=== PATIENT | female | born 1935 | race Caucasian/White ===

== ENCOUNTER 2017-06-09 10:33 | Inpatient (IN) | payer MEDICARE ==
[~2017-06-09] VITALS: Ht 152.4 cm; Wt 45.4 kg
[2017-06-09 11:17] LABS: BASOPHILS 0.1 % (0-2); EOSINOPHILS 0 % (0-7); HEMATOCRIT 44.7 % (36.0-48.0); HEMOGLOBIN 14.6 g/dL (12-16); IMMATURE GRANULOCYTES 0.2 % (0-5); LYMPHOCYTES 8.6 % (15-50); MCH 29.9 pg (26.0-34.0); MCHC 32.7 g/dL (31.0-37.0); MCV 91.4 fL (80.0-100.0); MEAN PLATELET VOLUME 11.5 fL (7.4-10.4); MONOCYTES 6.2 % (2-11); NEUTROPHILS 84.9 % (40-80); PLATELET COUNT 217 10x3/uL (130-400); RBC 4.89 10x6/uL (4.00-5.40); RDW 14.2 % (11.5-14.5); WBC 12.3 10x3/uL (4.8-10.8)
[2017-06-09 11:24] LABS: APTT 24.5 SECONDS (22.8-39.4); INR 1.05 (0.85-1.17); PROTIME 13.6 SECONDS (11.6-15.0)
[2017-06-09 11:30] LABS: ALBUMIN 3.4 g/dL (3.4-5.0); ANION GAP 15.7 mmol/L (8-16); BILIRUBIN - TOTAL 0.4 mg/dL (0.2-1.3); CARBON DIOXIDE 25.8 mmol/L (21.0-32.0); CREATININE - SERUM 1.1 mg/dL (0.6-1.3); POTASSIUM - SERUM 3.5 mmol/L (3.5-5.1); PROTEIN - SERUM 7.7 g/dL (6.4-8.2)
[2017-06-09 11:56] LABS: MAGNESIUM - SERUM 2.5 mg/dL (1.8-2.4); THYROID STIMULATING HORMONE 1.53 uIU/mL (0.36-3.74)
--- NOTE | 2017-06-09 13:05 | NUR ---
RECEIVED FROM ER VIA STRETCHER. IV TO L AC PATENT. COMPLAINING OF PAIN TO R HIP WITH MOVEMENT. COPPOLA PATENT DRAINING YELLOW URINE. SLIGHT REDNESS NOTED TO BUTTOCKS.
[2017-06-09] MEDS ORDERED: APRISO0.375 GM (13:19)
[2017-06-09] MEDS ORDERED: NORVASC5 MG PO (13:20)
[2017-06-09] MEDS ORDERED: LEVO-T88 MCG PO (13:20)
[2017-06-09] MEDS ORDERED: ALEVE220 MG PO (13:20)
[2017-06-09] MEDS ORDERED: IBUPROFEN600 MG PO (13:21)
[2017-06-09 13:27] VITALS: BP 147/78; BMI 19.5
[2017-06-09 14:10] LABS: APPEARANCE HAZY (CLEAR); BACTERIA MANY /hpf (NONE SEEN); BILIRUBIN NEGATIVE (NEGATIVE); COLOR YELLOW (YELLOW); EPITHELIAL CELLS 0-5 /hpf (0-5); GLUCOSE NEGATIVE (NEGATIVE); KETONE MODERATE mg/dL (NEGATIVE); LEUKOCYTE ESTERASE 2+ (NEGATIVE); NITRITE NEGATIVE (NEGATIVE); PROTEIN TRACE mg/dL (NEGATIVE); RED CELLS - URINE 0-5 /hpf (0-5); SPECIFIC GRAVITY 1.015 (1.005-1.020); UROBILINOGEN NORMAL (NORMAL); WHITE CELLS - URINE >50 /hpf (0-5)
--- NOTE | 2017-06-09 15:24 | NUR ---
RESTING QUIETLY IN BED. DENIES ANY NEEDS AT THIS TIME.
--- NOTE | 2017-06-09 16:13 | NUR ---
CONTINUES RESTING QUIETLY IN BED. DENIES ANY NEEDS AT THIS TIME. STATES SHE WANTS TO TAKE A NAP.
[2017-06-09 16:20] VITALS: BP 120/71
--- NOTE | 2017-06-09 19:00 | NUR ---
REPORT RECEIVED AND CARE OF PT ASSUMED. PT LYING IN SUPINE POSITION WITH EYES CLOSED. IV IN LEFT AC PATENT WITH LR INFUSING AT 100 ML / HR. COPPOLA CATHETER DRAINING TO GRAVITY WITH YELLOW URINE IN COLLECTION BAG. WILL MONITOR CLOSELY FOR NEEDS.
--- NOTE | 2017-06-09 19:40 | NUR ---
MORPHINE 2 MG IVP GIVEN PER PT REQUEST FOR PAIN. WILL CONTINUE TO MONITOR FOR NEEDS. CALL LIGHT WITHIN REACH.
[2017-06-09 20:00] VITALS: BP 110/63
--- NOTE | 2017-06-09 21:10 | NUR ---
HS MEDICATIONS GIVEN. WILL CONTINUE TO MONITOR FOR NEEDS.
--- NOTE | 2017-06-09 22:00 | NUR ---
PLACED SCD'S ON BILATERAL LOWER LEGS AND DID PT TEACHING ON USE AND PURPOSE.
[2017-06-10] VITALS: BP 122/67
--- NOTE | 2017-06-10 00:14 | NUR ---
GAVE MORPHINE 2 MG IVP PER PT REQUEST FOR PAIN AT LEVEL 5/10. PT ALSO REQUESTED TO HAVE SCD'S REMOVED. DAUGHTER IS AT BEDSIDE.
[2017-06-10 04:00] VITALS: BP 102/52
[2017-06-10 05:20] LABS: BASOPHILS 0.3 % (0-2); EOSINOPHILS 3.1 % (0-7); HEMATOCRIT 37.9 % (36.0-48.0); HEMOGLOBIN 12.1 g/dL (12-16); IMMATURE GRANULOCYTES 0.1 % (0-5); LYMPHOCYTES 23.2 % (15-50); MCH 29.4 pg (26.0-34.0); MCHC 31.9 g/dL (31.0-37.0); MEAN PLATELET VOLUME 11.6 fL (7.4-10.4); MONOCYTES 6.1 % (2-11); NEUTROPHILS 67.2 % (40-80); PLATELET COUNT 193 10x3/uL (130-400); RBC 4.12 10x6/uL (4.00-5.40); RDW 14.2 % (11.5-14.5)
[2017-06-10 05:47] LABS: ANION GAP 11.2 mmol/L (8-16); CALCIUM 8.2 mg/dL (8.5-10.1); CARBON DIOXIDE 27.2 mmol/L (21.0-32.0); CREATININE - SERUM 0.8 mg/dL (0.6-1.3); POTASSIUM - SERUM 3.4 mmol/L (3.5-5.1)
--- NOTE | 2017-06-10 07:35 | NUR ---
RESTING, DENIES NEEDS, BED LOWEST POSITION, CALL LIGHT IN REACH, WILL CONTINUE TO MONITOR
[2017-06-10 08:00] VITALS: BP 116/62
[2017-06-10] MEDS ORDERED: NORVASC5 MG PO (09:14)
[2017-06-10 11:00] VITALS: BP 123/67
--- NOTE | 2017-06-10 12:25 | NUR ---
AWAKE AND ALERT AT THIS TIME. DR NOVAK IN ROOM WITH PT AT THIS TIME. RESPIRATIONS EVEN AND NON LABORED. CALL LIGHT IN REACH, WILL CONTINUE WITH PLAN OF CARE.
--- NOTE | 2017-06-10 16:09 | CN ---
PATIENT NAME:CHRISTOPHER ROBERT MEDICAL RECORD: [id number] : 35 LOCATION:D.MS [id number] ADMIT DATE: 06/09/17 ACCOUNT: [id number] CONSULTING PHYSICIAN: CHARLOTTE SAMSON MD REFERRING PHYSICIAN: JANY NOVAK MD DATE OF CONSULTATION: 06/09/2017 DATE OF ADMISSION: 06/09/2017. This is a consult from Dr. Novak to me from medical management. HISTORY OF PRESENT ILLNESS: This is an 82-year-old white female who lives alone. She was seen by our nurse practitioner, Genny Anderson. The patient fell approximately 5 days ago and was able to somehow walk though dragging her right leg and last couple days, it got worse. She tried to take a lot of ibuprofen and it just did not help. Her daughter saw her and she was brought to the ER where she was found to have a right femoral neck fracture. It looks like she may have a urinary tract infection as well. PAST MEDICAL HISTORY: Hypothyroidism, hypertension and ulcerative colitis. PAST SURGICAL HISTORY: None. HOME MEDICATIONS: Levothyroxine 88 mcg once a day, Norvasc 5 mg once a day and Apriso 0.375 g once a day. ALLERGIES: None known. SOCIAL HISTORY: She is , retired from sales. FAMILY HISTORY: Father is . He had heart disease and had a stroke. Mother of some sort of cancer. HABITS: She never smoked. She drinks occasional alcoholic beverage and no illicit drug use. REVIEW OF SYSTEMS: GENERAL: No major weight changes. HEENT: No sinus or allergy problems. RESPIRATORY: No history of emphysema or asthma. No pneumonia. CARDIAC: No history of coronary artery disease. No chest pain or palpitations. GASTROINTESTINAL: She has ulcerative colitis, on medicine for that. GENITOURINARY: No significant problems there. MUSCULOSKELETAL: No particular joint aches and pains. No history of significant arthritis. NEUROLOGIC: No headaches or seizures. PSYCHIATRIC: No depression or melancholia. PHYSICAL EXAMINATION: VITAL SIGNS: Today, temperature 97.7, pulse 92, respirations 18, blood pressure 147/78 and O2 sat 94% on room air. GENERAL: She is awake and alert. She does not appear in acute distress at this time. HEENT: Grossly within normal limits. NECK: Supple. No JVD or bruit. CONSULT REPORT [id number] CHRISTOPHER ROBERT HEART: Regular rate and rhythm without murmur. LUNGS: Clear. ABDOMEN: Soft, flat and nontender. EXTREMITIES: She has pain in the right hip area. There is no edema. LABORATORY DATA: CBC with a white count of 12,300 and hemoglobin 14.6. INR 1.05. Basic metabolic panel is okay except BUN a little elevated at 54. LFTs were all okay. Urinalysis shows moderate ketones, 2+ leukocyte esterase, greater than 50 white blood cells, many bacteria, but 0-5 epithelial cells. EKG normal sinus rhythm, heart rate of 80. Chest x-ray shows no acute process. X-ray of the pelvis showed right femoral neck fracture. ASSESSMENT: 1. Hypertension. 2. Right femoral neck fracture. 3. Hypothyroidism. 4. Urinary tract infection. PLAN: We will give her Rocephin IV for her urinary tract infection. We will continue her usual home medications. Her EKG and chest x-ray looked okay. She should be okay for surgery by Dr. Novak. Thank you for the consult. We will continue to follow throughout her hospitalization. TRANSINT:[id number] Voice Confirmation ID: [id number] DOCUMENT ID: [id number] CHARLOTTE SAMSON MD at 1609 CC: [id number] DICTATION DATE: 06/09/17 1511 MEDIA PLANNER: 06/09/17 1859 ADM IN [place] [id number] [place] [id number]
[2017-06-10 18:23] VITALS: BP 119/66
--- NOTE | 2017-06-10 19:00 | NUR ---
REPORT RECEIVED AND CARE OF PT ASSUMED. PT LYING IN SEMI RUBY'S POSITION VISITING WITH FAMILY MEMBER. IV IN LEFT AC PATENT WITH LR INFUSING AT 100 ML / HR. COPPOLA CATHETER DRAINING TO GRAVITY WITH YELLOW URINE IN COLLECTION BAG. WILL MONITOR CLOSELY FOR NEEDS.
[2017-06-10 20:00] VITALS: BP 137/66
[2017-06-11] VITALS (7 sets, daily range): BP systolic 107–143; BP diastolic 53–71
--- NOTE | 2017-06-11 05:30 | NUR ---
HIBACLENS BATH PERFORMED BY MIXER OPERATOR HOT METAL AND ALL LINENS AND GOWN CHANGED.
--- NOTE | 2017-06-11 07:32 | NUR ---
PT RESTING IN BED WITH NO VISABLE SIGNS OF PAIN OR DISCOMFORT AT THIS TIME. BED IN LOW POSITION AND CALL LIGHT WITHIN REACH. WILL CONTINUE TO MONITOR.
--- NOTE | 2017-06-11 11:50 | NUR ---
Patient Name: CHRISTOPHER ROBERT Admission Status: ER Accout number: [id number] Admission Date: 06-09-2017 : 1935 Admission Diagnosis: Attending: JANY NOVAK Current LOS: 2 Anticipated DC Date: 06-14-2017 Planned Disposition: Inpatient Rehab Primary Insurance: [facility] Discharge Planning Comments: CM MET WITH PATIENT AND DAUGHTER (ERIN) REGARDING D/C NEEDS AND PLANS. PATIENT STATED SHE LIVES ALONE AND HAS FRIENDS THAT CHECK ON HER OFTEN. PATIENT STATED SHE HAS NO STEPS OR STAIRS AT HER HOME. PATIENT STATED SHE IS INDEPENDENT WITH HER CARE AND HAS A SHOWER CHAIR AT HOME. PATIENTS PCP IS DR. SAMSON AND SEES [facility]. PATIENT USES [facility] [employer] ON [employer] [facility] FOR HER PHARMACY NEEDS. PATIENT AND DAUGHTER WANTS IP REHAB AT DISCHARGE. PATIENT LIVES ALONE AND COULD BENEFIT FROM IP PER DAUGHTER. CM WILL CONTINUE TO FOLLOW PATIENT WITH D/C NEEDS AND PLANS. [facility]- [phone] ERIN DAVIS (DAUGHTER) [phone] Yarn Handler: Vijaya Figueredo Is the patient Alert and Oriented? Yes 0 * How many steps to enter\exit or inside your home? 0 0 * PCP DR. SAMSON 0 * Pharmacy [facility] [employer] ON [phone] * Preadmission Environment Home Alone 0 * ADLs Independent 0 * Equipment Shower Chair 0 * List name and contact numbers for known caregivers / representatives who currently or will assist patient after discharge: ERIN DAVIS [phone] * Community resources currently utilized None 0 * Additional services required to return to the preadmission environment? Yes 0 * Can the patient safely return to the preadmission environment? Yes 0 * Has this patient been hospitalized within the prior 30 days at any hospital? No 0 Grand Total: 0
--- NOTE | 2017-06-11 18:34 | NUR ---
RECIEVED TO ROOM FROM RECOVERY AWAKE AND ALERT ORIENTED X 3 LUNGS CLEAR. DRESING IN TACT TO RIGHT HIP PULESES IN TACT.
--- NOTE | 2017-06-11 19:00 | NUR ---
Received patient resting in bed with eyes open and family at bedside, assessment completed per flowsheet. Patient AO x2, disoriented to time/location. Eyes PERRLA @ 4mm with brisk response, patient wears glasses. S1/S2 noted rhythmic and regular. Breathing is slightly shallow and unlabored on 4L via NC with O2 sat 95%, lung sounds clear bilateral upper and diminished lower. Abdomen is flat and soft with bowel sounds active x4, non-tender. Larson secured in place, clear yellow urine noted. Full upper extremities and L lower, R lower impaired ROM. All pulses palpable with cap refill < 3 sec, skin warm/dry to touch. 20g PIV noted L forearm with LR @ 100ml/hr infusing. Patient denies pain or other needs at this time, all VSS and will continue to monitor.
--- NOTE | 2017-06-11 21:00 | NUR ---
Patient resting in bed with eyes open watching TV, slight disorientation to time/situation but reorients easily. Denies pain or other needs at this time, all VSS and will continue to monitor.
--- NOTE | 2017-06-11 23:00 | NUR ---
Reassessment completed per flowsheet, patient resting in bed with eyes open watching TV. S1/S2 noted rythmic and regular. Breathing is even and unlabored on 4L via NC with O2 sat 96%. All pulses palpable with cap refill < 3 sec, skin warm/dry to touch. Patient denies pain or other needs at this time, all VSS and will continue to monitor.
[2017-06-12] VITALS (8 sets, daily range): BP systolic 101–140; BP diastolic 45–81; Ht 152.4 cm; Wt 45.4 kg
--- NOTE | 2017-06-12 01:00 | NUR ---
Patient sleeping in bed with eyes closed, breathing is even and unlabored. Repositioned for comfort, no further needs at this time. All VSS and will continue to monitor.
--- NOTE | 2017-06-12 03:00 | NUR ---
Reassessment completed per flowsheet, patient resting in bed with eyes closed. Patient AO x2, disoriented to time/place but reorients easily. S1/S2 noted rhythmic and regular. Breathing is slightly shallow and unlabored on 4L via NC, O2 sat 98%. Patient states feeling returning to lower extremities, denies pain at this time. All pulses palpable and cap refill < 3 sec, skin warm/dry to touch. No further needs at this time, all VSS and will continue to monitor.
[2017-06-12 06:35] LABS: HEMATOCRIT 36.8 % (36.0-48.0); HEMOGLOBIN 11.7 g/dL (12-16); MCH 29.1 pg (26.0-34.0); MCHC 31.8 g/dL (31.0-37.0); MCV 91.5 fL (80.0-100.0); MEAN PLATELET VOLUME 11.2 fL (7.4-10.4); RBC 4.02 10x6/uL (4.00-5.40); RDW 13.5 % (11.5-14.5); WBC 10.6 10x3/uL (4.8-10.8)
--- NOTE | 2017-06-12 09:04 | NUR ---
PT SITUATED IN BED SO SHE CAN EAT HER BREAKFAST. FAMILY MEMBER AT BEDSIDE. PT REQUEST PAIN MED. REEDUCATED PT AND FAMILY MEMBER ON USING THE [employer] CONSULTANT PUMP.
--- NOTE | 2017-06-12 15:51 | NUR ---
PT HAS BEEN SLEEPING HER PULSE OX IS RUNNING ABOUT 96. BED IS LOW, SIDE RAILS UP X 2 AND CALL LIGHT IN REACH.
--- NOTE | 2017-06-12 16:51 | NUR ---
REHAB NOTE- ACUTE PRESCREEN ORDER RECEIVED. THE PATIENT HAS [employer] INSURANCE AND WILL REQUIRE A PREAUTH PRIOR TO ACUTE REHAB STAY. WILL BEGIN PREAUTH. THANK YOU FOR THIS REFERRAL! TARI DIXON RN CLINICAL LIAISON, [facility] REHAB
--- NOTE | 2017-06-12 19:25 | NUR ---
RECIEVED SHIFT REPORT. PT IS LYING IN BED. ALERT AND ORIENTED AND ABLE TO VERBALIZE NEEDS. IV IS PATENT AND FLUIDS ARE RUNNING PER ORDER. O2 @ 4 PER NASAL CANNULA. PT HAS BEEN UP WITH PHYSICAL THERAPY. PT CAN ASSIST IN TURNING IN BED FOR COMFORT AND SKIN CARE. COPPOLA IS DRAINING URINE BY GRAVITY. SCD'S OFF AT THIS TIME. PT STATES PAIN IS 3/[address] PUMP. DRESSING TO RIGHT HIP C/D/I. NO NEEDS ARE VERBALIZED AT THIS TIME. FAMILY IS AT THE BEDSIDE. WILL CONTINUE TO MONITOR. SIDE RAILS ARE UP X 2. BED IS IN LOWEST POSITION. BED ALARM IS ON FOR SAFETY. CALL LIGHT IS WITHIN REACH.
--- NOTE | 2017-06-12 20:39 | NUR ---
SHIFT ASSESSMENT COMPLETED. NIGHT MEDS GIVEN WITH NO PROBLEMS. PT C/O PAIN 11/24. ADMINISTERED PRESCRIBED PRN NORCO PER ORDER. DENIES FURTHER NEEDS. FAMILY AT BEDSIDE. WILL MONITOR. SIDE RAILS X 2. BED LOW. BED ALARM ON. CALL LIGHT IN REACH.
[2017-06-13] VITALS: BP 103/53
[2017-06-13 04:00] VITALS: BP 110/56
[2017-06-13 06:03] LABS: HEMATOCRIT 32.2 % (36.0-48.0); HEMOGLOBIN 10.5 g/dL (12-16); MCH 29.6 pg (26.0-34.0); MCHC 32.6 g/dL (31.0-37.0); MCV 90.7 fL (80.0-100.0); MEAN PLATELET VOLUME 11.8 fL (7.4-10.4); RBC 3.55 10x6/uL (4.00-5.40); RDW 13.6 % (11.5-14.5); WBC 9.1 10x3/uL (4.8-10.8)
--- NOTE | 2017-06-13 07:50 | NUR ---
OXYGEN ON 2L VIA NC WITH OXYGEN SATURATION 95%. WILL CONTINUE TO WEAN OXYGEN TOLERATED.
[2017-06-13 08:21] VITALS: BP 117/66
--- NOTE | 2017-06-13 08:44 | NUR ---
PRN PAIN MEDICATION ADMINISTERED AT THIS TIME. DAUGHTER AT BEDSIDE. OXYGEN WEANED TO 1L WITH OXYGEN SATURATION 93-94%. REMAINS IN BED AT THIS TIME. CALL LIGHT IN REACH, WILL CONTINUE WITH PLAN OF CARE.
[2017-06-13 12:00] VITALS: BP 98/51
--- NOTE | 2017-06-13 13:41 | NUR ---
PRN NORCO ADMINISTERED FOR PAIN AT THIS TIME. DAUGHTER REMAINS AT BEDSIDE. WILL CONTINUE WITH PLAN OF CARE.
[2017-06-13 16:31] VITALS: BP 111/56
--- NOTE | 2017-06-13 19:25 | NUR ---
RECIEVED SHIFT REPORT. PT IS LYING IN BED. ALERT AND ORIENTED AND ABLE TO VERBALIZE NEEDS. IV IS PATENT AND SALINE LOC AT THIS TIME. O2 @ 2 PER NASAL CANNULA. COPPOLA IS DRAINING URINE BY GRAVITY. PT HAS BEEN UP WITH PHYSICAL THERAPY. SCD'S OFF PER PT REQUEST. DRESSING TO RIGHT HIP C/D/I. PT STATES PAIN IS 4/10. NO NEEDS ARE VERBALIZED AT THIS TIME. WILL CONTINUE TO MONITOR. DAUGHTER IS AT THE BEDSIDE. SIDE RAILS ARE UP X 2. BED IS IN LOWEST POSITION. CALL LIGHT IS WITHIN REACH. BED ALARM IS ON FOR SAFETY.
[2017-06-13 20:00] VITALS: BP 122/63
--- NOTE | 2017-06-13 20:58 | NUR ---
SHIFT ASSESSMENT COMPLETED. NIGHT MEDS GIVEN WITH NO PROBLEMS. PT C/O PAIN 01/22. ADMINISTERED PRESCRIBED PRN NORCO PER ORDER. DENIES FURTHER NEEDS. WILL MONITOR. SIDE RAILS X 2. BED LOW. BED ALARM ON. CALL LIGHT IN REACH.
[2017-06-14] VITALS: BP 101/52
[2017-06-14 04:00] VITALS: BP 110/60
--- NOTE | 2017-06-14 08:05 | NUR ---
SLEEPING AT THIS TIME. OXYGEN ON 2L VIA NC WITH RESPIRATIONS EVEN AND NON LABORED. OXYGEN SATURATION 95%. DENIES NEEDS AT THIS TIME. CALL LIGHT IN REACH. WILL CONTINUE WITH PLAN OF CARE.
[2017-06-14 08:06] VITALS: BP 115/53
--- NOTE | 2017-06-14 08:42 | NUR ---
SCHEDULED MEDICATIONS ADMINISTERED AT THIS TIME. PRN NORCO ADMINISTERED PER ORDER FOR PAIN. CALL LIGHT IN REACH. WILL CONTINUE WITH PLAN OF CARE. DAUGHTER AT BEDSIDE.
[2017-06-14 11:57] VITALS: BP 116/43
--- NOTE | 2017-06-14 12:11 | NUR ---
UP IN CHAIR PER PHYSICAL THERAPY AT THIS TIME. DAUGHTER AT BEDSIDE. CALL LIGHT IN REACH, WILL CONTINUE WITH PLAN OF CARE.
--- NOTE | 2017-06-14 12:17 | NUR ---
Rehab Note- Contacted [facility] to see where the pending authorization is with reference #[id number]. Was forwarded from Jhoana, to another lady, then to Kecia that was able to locate a note placed by Gary Pratt At a fax or phone # [phone], that she was awaiting clinicals, have not been attempted to be reached by either fax or phone. Will attempt to contact Gary at this time by faxing clinicals and calling. Will continue to follow at this time. Shraddha Santana RN Clinical Liaison, [facility] Rehab
--- NOTE | 2017-06-14 13:46 | NUR ---
NUTRITION MONITORING & EVAL. REG DIET WITH ~25% INTAKE RECENT MEALS. NOTE POSSIBLE DC TO REHAB. WILL CONTINUE TO PROVIDE DIET, MONITOR INTAKE, PT PROGRESS. RD FOLLOWING
[2017-06-14 15:03] VITALS: BP 120/59
[2017-06-14 20:00] VITALS: BP 118/57
[2017-06-15] VITALS: BP 125/60
[2017-06-15 04:00] VITALS: BP 132/67
--- NOTE | 2017-06-15 07:30 | NUR ---
PATIENT RECEIVED ALERT IN MID RUBY POSITION. NO SIGNS OF DISTRESS NOTED. DENIES PAIN AND OTHER NEEDS. SIDE RAILS UP X2. BED IN LOW POSITION. CALL LIGHT IN REACH. JYOTI ALARM ON.
[2017-06-15 08:05] VITALS: BP 143/60
--- NOTE | 2017-06-15 08:38 | NUR ---
PATIENT ALERT IN BED. REPOSITIONED FOR COMFORT. SCHEDULED MEDICATION ADMINISTERED. DENIES PAIN AND OTHER NEEDS. SIDE RAILS UP X2. BED IN LOW POSITION. CALL LIGHT IN REACH. JYOTI ALARM ON.
[2017-06-15 10:15] LABS: HEMATOCRIT 32.7 % (36.0-48.0); HEMOGLOBIN 10.6 g/dL (12-16)
--- NOTE | 2017-06-15 10:22 | NUR ---
Rehab Note- Message left early this am from [facility] requesting clinicals faxed to another #, . Faxed clinicals to this new number at this time. Shraddha Santana RN Clinical Liaison, [facility] Rehab
--- NOTE | 2017-06-15 11:14 | NUR ---
Rehab Note- Recieved call from Larisa with [facility], stated denial from their biomedical field service engineer for an acute rehab stay. Stated can call the [employer] hotline at [phone], or can contact Larisa directly to set up a peer to peer [phone] [phone]. Will notify ORTEGA Lilly. Will continue to follow at this time as we have visited with the patient's daughter a couple of times and she is wanting her mother to come to our acute rehab unit. Thank you for this referral! Shraddha Santana RN Clinical Liaison, [facility] Rehab
--- NOTE | 2017-06-15 11:32 | NUR ---
PATIENT SITTING UP IN CHAIR ALERT. NO SIGNS OF DISTRESS NOTED. C/O PAIN 04/23. NORCO PER PRN ORDER. DAUGHTER AT BEDSIDE. CALL LIGHT IN REACH.
[2017-06-15 12:28] VITALS: BP 104/45
--- NOTE | 2017-06-15 13:55 | NUR ---
ABBE CARE PROVIDED. COPPOLA CATH D/C PER ORDER. BALLOON DEFLATED. TIP INTACT. 1000CC CLEAR, YELLOW URINE REMAINED IN COLLECTION BAG. INSTRUCTED PATIENT TO CALL FOR ASSIST WHEN NEEDING TO VOID. STATES UNDERSTANDING. WELL TOLERATED. CALL LIGHT IN REACH. SIDE RAILS UP X2. BED IN LOW POSITION.
--- NOTE | 2017-06-15 15:15 | NUR ---
PATIENT REPOSITIONED IN BED. PILLOW PLACED BENEATH RIGHT SIDE. REDNESS AND SHEARING NOTED TO BUTTOCK. BUTT PASTE APPLIED. WELL TOLERATED. SIDE RAILS UP X2. BED IN LOW POSITION. CALL LIGHT IN REACH. JYOTI ALARM ON.
[2017-06-15] MEDS ORDERED: ELIQUIS2.5 MG PO (15:50)
[2017-06-15] MEDS ORDERED: HYDROCODON-ACE1 EAC7 PO (15:51)
--- NOTE | 2017-06-15 15:53 | OP ---
PATIENT NAME: CHRISTOPHER ROBERT MEDICAL RECORD: [id number] :35 LOCATION:D.MS [id number] ADMISSION DATE:06/09/17 SURGEON: JANY NOVAK MD DATE OF OPERATION: 06/11/2017 PREOPERATIVE DIAGNOSIS: Displaced femoral neck fracture of the right hip. POSTOPERATIVE DIAGNOSIS: Displaced femoral neck fracture of the right hip. PROCEDURE: Bipolar endoprosthetic replacement, right hip. SURGEON: Jany Novak MD. ANESTHESIA: General. INTRAOPERATIVE COMPLICATIONS: None. SUMMARY OF PATHOLOGIC FINDINGS: The patient was indeed found to have a displaced femoral neck fracture. OPERATIVE SUMMARY IN DETAIL: After obtaining the appropriate preoperative orthopedic surgery consents as well as anesthetic consultation, evaluation and clearance, the patient was brought to the operating room and placed on the operating table in supine position. After adequate ____ anesthesia was administered, the patient was placed in a left lateral decubitus position. All pressure points were well padded to include down leg peroneal pad as well as axillary roll. The patient was held firmly to the operating table using the vacuum pack suction system. The right hip and lower extremity were prepped and draped in a routine sterile fashion. Curvilinear incision made over the greater trochanter, taken down to the level of the IT band, which was split in line with fibers of the IT band to reveal the gluteus medius minimus attachment to the greater trochanter. These were reflected anteriorly and saved for later reapproximation. The hip capsule was split in a T-type fashion to reveal the fracture hematoma. Femoral neck cut was made at this point using the femoral neck cutting guide for the [place] Accolade II TMZF coated stem system. The hip femoral head was then extracted using a corkscrew. Measurements were taken for a 43 bipolar. The acetabulum was cleaned of all debris. Serial and sequential reaming and broaching were done, the hip for a size 4 Accolade II TMZF coated stem, this was put into placed. A -3 was the most appropriate inner head length. This was articulated on the back field, tamped into placed on the Dill taper. The hip was reduced, taken through range of motion and found to be stable in all planes. Intraoperative radiograph showed good position with good leg length synagogue. Wound was copiously irrigated at this multiple points. The capsule was closed with #2 Ethibond. This was followed by #5 Ethibond reapproximation of the gluteus medius and minimus back to the greater trochanter in a transosseous fashion. Having completed this, the IT band was closed with #2 Ethibond. This was followed by #1 Vicryl, 2-0 Vicryl and skin franklin. Sterile dressings were applied. The patient was awakened, taken to recovery room in stable condition. All final needle and sponge counts were correct. TRANSINT:[id number] Voice Confirmation ID: [id number] DOCUMENT ID: [id number] OPERATIVE REPORT [id number] CHRISTOPHER ROBERT MD, JANY CRUZ at 1553 CC: [id number] DICTATION DATE: 06/11/171745 PUBLIC HEALTH NURSE: 06/11/172029 ADM IN [facility] [address] [place] [id number]
[2017-06-15 16:00] VITALS: BP 139/62
--- NOTE | 2017-06-15 16:33 | NUR ---
CM REASSESSMENT NOTE: PATIENT IS DISCHARGING TODAY TO [facility] TO A SKILLED BED BY FACILITY VAN. DAUGHTER AWARE SIGNED IMM FORM.
--- NOTE | 2017-06-15 17:35 | NUR ---
DRESSING TO RIGHT HIP CHANGED PER ORDER. JAELYN INTACT. NO REDNESS OR INFLAMMATION NOTED TO SITE. NEW AQUACEL AG IN PLACE. WELL TOLERATED.
--- NOTE | 2017-06-15 18:06 | NUR ---
REPORT CALLED TO [facility]. CAROLINE RECEIVED REPORT.
--- NOTE | 2017-06-15 18:40 | NUR ---
PATIENT D/C TO [facility] WITH [place] STAFF AND FAMILY. TRANSFERRED DOWNSTAIRS VIA WHEELCHAIR.
== END 2017-06-15 18:41 | DRG 470 ==
LOC: D.ER 10:33 → EDBD 10:33 → D.MS 12:01
PROVIDERS: Family Medicine; Nurse Practitioner Acute Care; ADMIT Orthopaedic Surgery
PROC: 0SRR0JZ Replacement of Right Hip Joint, Femoral Surface with Synthetic Substitute, Open Approach (ICD-10-PCS; principal; 2017-06-11 15:00)
DX: S72.001A Fracture of unspecified part of neck of right femur, initial encounter for closed fracture (principal); N39.0 Urinary tract infection, site not specified; W01.0XXA Fall on same level from slipping, tripping and stumbling without subsequent striking against object, initial encounter; E03.9 Hypothyroidism, unspecified; I10 Essential (primary) hypertension; J44.9 Chronic obstructive pulmonary disease, unspecified; Z87.891 Personal history of nicotine dependence

== ENCOUNTER 2020-07-06 18:16 | Inpatient (IN) | payer MEDICARE ==
[~2020-07-06] VITALS: Ht 152.4 cm; Wt 42.2 kg
[~2020-07-06 18:16] MED LIST: ALEVE220 MG PO; APRISO0.375 GM; ELIQUIS2.5 MG PO; HYDROCODON-ACE1 EAC7 PO; IBUPROFEN600 MG PO; LEVO-T88 MCG PO; NORVASC5 MG PO
[2020-07-06 19:11] LABS: BASOPHILS 0.1 % (0-2); EOSINOPHILS 0 % (0-7); HEMATOCRIT 38.2 % (36.0-48.0); IMMATURE GRANULOCYTES 0.6 % (0-5); LYMPHOCYTES 3.3 % (15-50); MCH 29.3 pg (26.0-34.0); MCHC 31.4 g/dL (31.0-37.0); MCV 93.2 fL (80.0-100.0); MEAN PLATELET VOLUME 11.1 fL (7.4-10.4); MONOCYTES 5.3 % (2-11); NEUTROPHILS 90.7 % (40-80); PLATELET COUNT 269 10x3/uL (130-400)
[2020-07-06 19:16] LABS: APTT 28.4 SECONDS (22.8-39.4); INR 1.15 (0.85-1.17); PROTIME 14.7 SECONDS (11.6-15.0)
--- NOTE | 2020-07-06 20:00 | NUR ---
PT CLEANED UP AND NEW LINENS PLACED ON BED AT THIS TIME.
--- NOTE | 2020-07-06 20:15 | NUR ---
PT TO CT.
[2020-07-06 20:25] LABS: CALC OSMOLALITY 305 mosm/kg (275-300); CALCIUM 9.1 mg/dL (8.5-10.1); CARBON DIOXIDE 26.8 mmol/L (21.0-32.0); CHLORIDE - SERUM 103 mmol/L (98-107); CREATININE - SERUM 1.2 mg/dL (0.6-1.3); GLUCOSE 130 mg/dL (74-106); SODIUM 138 mmol/L (136-145); UREA NITROGEN 92 mg/dL (7-18); eGFR NON AFRICAN AMERICAN 45 mL/min (90-120)
--- NOTE | 2020-07-06 20:35 | NUR ---
PT BACK FROM CT.
[2020-07-06 20:56] LABS: ALBUMIN 2.3 g/dL (3.4-5.0); ALKALINE PHOSPHATASE 99 U/L (30-120); ALT (SGPT) 13 U/L (10-68); CKMB 1.5 U/L (0.0-3.6); CREATINE KINASE 58 UL (21-215); PRO BNP 941 pg/mL (0-450); PROTEIN - SERUM 7.1 g/dL (6.4-8.2)
[2020-07-06 21:13] LABS: BILIRUBIN NEGATIVE (NEGATIVE); KETONE NEGATIVE (NEGATIVE); NITRITE NEGATIVE (NEGATIVE); UROBILINOGEN NORMAL mg/dL (< 2)
[2020-07-06 21:15] LABS: BACTERIA MANY HPF (NONE SEEN); EPITHELIAL CELLS 0-5 /hpf (0-5); WHITE CELLS - URINE 0-5 HPF (0-4)
[2020-07-06 21:20] LABS: TROPONIN-I 0.075 ng/mL (0.000-0.060)
--- NOTE | 2020-07-07 01:09 | NUR ---
SPOKE WITH DR. WILLINGHAM ABOUT BIPAP AND WAS INFORMED TO REMOVE PT FROM BIPAP AND PLACE PT ON NONREBREATHER.
--- NOTE | 2020-07-07 01:30 | NUR ---
PT CLEANED UP AND PROVIDED WITH FRESH LINENS AT THIS TIME. NO ACUTE DISTRESS NOTED, BED IN LOWEST POSTION, CALL LIGHT WITHIN REACH, WILL CONTINUE TO MONITOR.
[2020-07-07 02:41] VITALS: BP 154/81; BMI 18.2
[2020-07-07 04:00] VITALS: BP 152/66
--- NOTE | 2020-07-07 07:25 | NUR ---
LYING IN BED AWAKE, ALERT, NRB@15L IN PROGRESS/ORDER, BED AND LINENS WET FROM URINE-WILL CHANGE JOHNSON--NO NEEDS VOICED AT THIS TIME.
[2020-07-07 08:01] VITALS: BP 140/57
--- NOTE | 2020-07-07 09:37 | NUR ---
ERIN RYAN POA TO CALL AND ASK QUESTIONS ABOUT ADMIT AND UPDATE STATUS. I REVIEWED THE CHART WITH HER. ERIN HERSELF IS GOING INTO CATARACT SURGERY IN ABOUT AN HOUR. GAVE PERMISSION TO TALK TO OTHER SISTER BALA BENOIT [phone] WITH ANY UPDATES. THIS IS PASSED TO PRIMARY NURSE MICHELLE TODAY.
--- NOTE | 2020-07-07 10:15 | NUR ---
PT WIPED DOWN AND LINENS CHANGED, PULL UP PLACED ON PT. BLOOD DRAWN/ORDER BY THIS NURSE AND TURNED INTO LAB. NO NEEDS VOICED AT THIS TIME.
[2020-07-07 10:34] LABS: BASOPHILS 0.1 % (0-2); EOSINOPHILS 0 % (0-7); HEMATOCRIT 33.8 % (36.0-48.0); HEMOGLOBIN 10.5 g/dL (12-16); IMMATURE GRANULOCYTES 0.9 % (0-5); LYMPHOCYTES 3.3 % (15-50); MCH 29.6 pg (26.0-34.0); MCHC 31.1 g/dL (31.0-37.0); MEAN PLATELET VOLUME 10.6 fL (7.4-10.4); MONOCYTES 3.1 % (2-11); NEUTROPHILS 92.6 % (40-80); PLATELET COUNT 260 10x3/uL (130-400); RBC 3.55 10x6/uL (4.00-5.40); RDW 14.5 % (11.5-14.5); WBC 18.3 10x3/uL (4.8-10.8)
[2020-07-07 10:36] LABS: MCV 95.2 fL (80.0-100.0)
[2020-07-07 10:41] LABS: ANION GAP 9.1 mmol/L (8-16); BILIRUBIN - TOTAL 0.12 mg/dL (0.2-1.3); CALCIUM 7.9 mg/dL (8.5-10.1); CARBON DIOXIDE 27.4 mmol/L (21.0-32.0); POTASSIUM - SERUM 4.5 mmol/L (3.5-5.1); PROTEIN - SERUM 6.4 g/dL (6.4-8.2)
[2020-07-07 11:12] VITALS: BP 137/64
--- NOTE | 2020-07-07 14:00 | NUR ---
CONTACTED DR SAMSON--POULTRY FARM SUPERVISOR FOR DR DAVIDSON--EXPLAINED THAT PT USED TO TAKE SYNTHROID ACCORDING TO HER DTR ERIN DAVIS--NEW V.O. FOR TSH AND FREE T4 LEVEL.
[2020-07-07 14:32] VITALS: BMI 18.1
[2020-07-07 15:21] LABS: HEMATOCRIT 33.3 % (36.0-48.0); HEMOGLOBIN 10.1 g/dL (12-16)
--- NOTE | 2020-07-07 16:42 | NUR ---
PT MOVED FROM ROOM 2133 TO ROOM 2101 BY WHEELCHAIR--PT TOLERATED WELL.
--- NOTE | 2020-07-07 18:47 | NUR ---
PT OPENS EYES FOR ONLY SECONDS WHILE NURSE IN ROOM-THEN WILL NOT WAKE AGAIN--FS 165, BP 115/53, HR 103, 02SAT 97% W/RESP THERAPIST IN ROOM CHANGING PT FROM NRB @15L TO A BIPAP AT THIS TIME--RECTAL TEMP 95.9--PLACED 3 BLANKETS ON PT AT THIS TIME--WILL CONTACT PT'S
--- NOTE | 2020-07-07 18:56 | NUR ---
DR MALI DALEY--CHARGE NURSE NOTIFIED OF SITUATION
--- NOTE | 2020-07-07 19:17 | NUR ---
DR SAMSON CONTACTED THIS NURSE @ 1883--THIS NURSE REPORTS THE PT IS LETHARGIC-NOT WAKING WELL--FS165, B/P 115/53, 98ALM82%, RESP 21, HR 103, TEMP 95.9 RECTAL, DIAPHORETIC. DR SAMSON STATED THAT HE WILL LOOK AT THE PT'S CHART ONLINE AND PLACE ORDERS IF NEEDED.
[2020-07-07 21:55] LABS: HEMATOCRIT 32.1 % (36.0-48.0); HEMOGLOBIN 9.6 g/dL (12-16)
[2020-07-08 06:44] LABS: BASOPHILS 0.1 % (0-2); EOSINOPHILS 0 % (0-7); HEMATOCRIT 30.7 % (36.0-48.0); HEMOGLOBIN 9.2 g/dL (12-16); IMMATURE GRANULOCYTES 1.3 % (0-5); LYMPHOCYTES 4.4 % (15-50); MCH 29.2 pg (26.0-34.0); MEAN PLATELET VOLUME 10.8 fL (7.4-10.4); MONOCYTES 3.9 % (2-11); NEUTROPHILS 90.3 % (40-80); PLATELET COUNT 266 10x3/uL (130-400); RBC 3.15 10x6/uL (4.00-5.40); RDW 15.3 % (11.5-14.5); WBC 18.7 10x3/uL (4.8-10.8)
[2020-07-08 06:45] LABS: MCV 97.5 fL (80.0-100.0)
--- NOTE | 2020-07-08 07:16 | NUR ---
Lying in bed awake, alert, confused. Removed Bi-Pap/pt request and placed NRB @ 15L on pt at this time--Pt speaks to nurse, no distress noted.
[2020-07-08 07:26] LABS: ANION GAP 12.6 mmol/L (8-16); CALCIUM 8.2 mg/dL (8.5-10.1); CARBON DIOXIDE 25.7 mmol/L (21.0-32.0); CREATININE - SERUM 1.1 mg/dL (0.6-1.3); POTASSIUM - SERUM 4.3 mmol/L (3.5-5.1); T4 THYROXIN - FREE 0.97 ng/dL (0.76-1.46); THYROID STIMULATING HORMONE 0.66 uIU/mL (0.36-3.74)
[2020-07-08 08:22] VITALS: BP 118/54
--- NOTE | 2020-07-08 08:55 | NUR ---
OT NOTE: (DOS07/07/20) PT COMPLETED SUPINE TO SIT WITH MIN A. PT COMPLETED EOB SITTING WITH CGA. PT COMPLETED UE AROM WITH BED MOB TASKS. [phone] THANK YOU,AD HENDRICKS
--- NOTE | 2020-07-08 12:08 | NUR ---
OT NOTE: DTR AT BEDSIDE THIS AM. PT ABLE TO PERFORM BED MOB WITH MIN/MOD ASSIST; TRANSFER TO CHAIR WITH WALKER AND MIN ASSIST. PT REMAINS WITH SOME CONFUSION AND DISORIENTATION. NABILA HELMS, OTR/L [phone]
[2020-07-08 12:23] VITALS: BP 130/60
[2020-07-08 13:14] LABS: HEMATOCRIT 30.5 % (36.0-48.0); HEMOGLOBIN 9.2 g/dL (12-16)
[2020-07-08 14:42] VITALS: Ht 152.4 cm; Wt 42.2 kg
[2020-07-08 15:24] VITALS: BP 135/60
[2020-07-08 22:26] VITALS: BP 134/48
--- NOTE | 2020-07-08 22:27 | NUR ---
SAT PT UP HIGH IN BED--SIPS OF WATER GIVEN--PT TOLERATED WELL--LEFT PT SITTING UP IN BED--NO FURTHER NEEDS VOICED. NO DISTRESS NOTED.
--- NOTE | 2020-07-08 23:35 | NUR ---
ASSUMED CARE OF PATIENT FROM PREVIOUS SHIFT. ON 5L HIGH FLOW NC. RIGHT FA PIV SEEN WITH D 5 1/2 NS INFUSING AT 50 CC/HR. SKIN TEAR SEEN TO LEFT UNDERWOOD PER REPORT OF PREVIOUS FALL AT HOME. DENIES NEEDS AT THIS TIME.
[2020-07-09 02:47] VITALS: BP 131/63
--- NOTE | 2020-07-09 03:19 | NUR ---
RESTING WITH EYES CLOSED, BIPAP ON AND IN USE. CALL LIGHT IS IN LAP. TV ON AND RESP ARE EVEN.
--- NOTE | 2020-07-09 05:24 | NUR ---
FULL BATH AND LINEN CHANGE DONE R/T INCONT. OF URINE IN DEPENDS. PATIENT SLEPT WELL ALL NIGHT ON THE BIPAP. PLACED ON 5L PER HIGH FLOW. SMALL AREA OF REDNESS SEEN TO RIGHT COCCYX AREA. NO DEPENDS PLACED ON PATIENT AT THIS TIME. LAYING ON LEFT SIDE OFF COCCYX. CALL LIGHT IN LAP.
[2020-07-09 05:35] LABS: BASOPHILS 0.1 % (0-2); EOSINOPHILS 0 % (0-7); HEMATOCRIT 26.8 % (36.0-48.0); HEMOGLOBIN 7.9 g/dL (12-16); IMMATURE GRANULOCYTES 1.3 % (0-5); LYMPHOCYTES 3.8 % (15-50); MCH 28.8 pg (26.0-34.0); MCHC 29.5 g/dL (31.0-37.0); MCV 97.8 fL (80.0-100.0); MEAN PLATELET VOLUME 10.3 fL (7.4-10.4); MONOCYTES 4.3 % (2-11); NEUTROPHILS 90.5 % (40-80); PLATELET COUNT 236 10x3/uL (130-400); RBC 2.74 10x6/uL (4.00-5.40); RDW 15.6 % (11.5-14.5)
[2020-07-09 06:01] LABS: WBC 13.9 10x3/uL (4.8-10.8)
[2020-07-09 06:07] LABS: ANION GAP 10.1 mmol/L (8-16); CALCIUM 8.4 mg/dL (8.5-10.1); CREATININE - SERUM 1.1 mg/dL (0.6-1.3); POTASSIUM - SERUM 4.1 mmol/L (3.5-5.1)
[2020-07-09 06:15] VITALS: BP 128/77
--- NOTE | 2020-07-09 07:32 | NUR ---
DR HUTCHINSON IS ON THE FLOOR AND MADE AWARE OF THE INCREASE IN THE CHLORIDE AND THE SODIUM. NO NEW ORDERS.
[2020-07-09 09:27] VITALS: BP 131/61
[2020-07-09 11:08] LABS: HEMATOCRIT 26.7 % (36.0-48.0); HEMOGLOBIN 7.9 g/dL (12-16)
--- NOTE | 2020-07-09 12:18 | NUR ---
OT NOTE: PT REMAINS CONFUSED.. INCREASED DIFFICULTY WITH MOTOR PLANNING TODAY. PT REQUIRED MOD ASSIST FOR SUPINE TO SIT AND GETTING TO EOB. SIT TO STAND WITH MIN ASSIST AND WALKER. PT ABLE TO AMBULATE APPROX 5 STEPS WITH WALKER BEFORE SHE BECAME SO FATIGUED, THERAPY ALMOST HAD TO LIFT HER INTO BED. ALLOWED PT TO REST ON SIDE OF BED IN SITTING POSITION WHILE UE DRESSING AND PERINEAL CARE WAS PERFORMED ( PT INCONT OF BOWEL AND BLADDER) . PERFORMED SIT TO STAND AGAIN WITH MIN ASSIST. WITH MAX VERBAL AND TACTILE CUES, PT WAS INSTRUCTED TO TAKE SOME SIDE STEPS, HOWEVER, SHE WAS UNABLE TO COORDINATE MOVEMENTS. OT AND PT HAD TO PHYSICALLY LIFT PT UP INTO THE BED. PT WILL REQUIRE CONTINUED THERAPY IN ORDER TO RETURN TO OF. DTR REPORTS THAT PT WAS DOING HER OWN GROCERY SHOPPING PRIOR TO [facility]. PT EXTREMELY WEAK AND DECONDITIONED AT THIS TIME NABILA HELMS, OTR/L
--- NOTE | 2020-07-09 12:53 | MORECARE ---
CASE MANAGEMENT DISCHARGE SUMMARY PATIENT: CHRISTOPHER ROBERT UNIT: [id number] ADM DATE: 07/06/20 AGE: 85 : 35 SEX: F ROOM/BED: D.210 AUTHOR: SARITHA SY PHYSICIAN: REFERRING PHYSICIAN: FABIENNE DAVIDSON MD DATE OF SERVICE: 07/09/20 Discharge Plan Patient Name: CHRISTOPHER ROBERT Facility: [facility]:[place] : 1935 Planned Disposition: Anticipated Discharge Date: Discharge Date: Expected LOS: Initial Reviewer: [email or web address] Initial Review Date: 07/06/2020 Generated: 07/09/20 1:53 pm Patient Name: CHRISTOPHER ROBERT Page [phone] at 1253 All edits/amendments must be made on the electronic document DICTATION DATE: 07/09/20 1253 PAPER CONE DRYING MACHINE OPERATOR: JEREYM 07/09/20 1253 RPT#: [id number] DC DATE: STATUS: ADM IN [facility] [address] [place] [address] END OF REPORT
[2020-07-09 13:00] VITALS: BP 130/53
--- NOTE | 2020-07-09 13:01 | MORECARE ---
CASE MANAGEMENT DISCHARGE SUMMARY PATIENT: CHRISTOPHER ROBERT UNIT: [id number] ADM DATE: 07/06/20 AGE: 85 : 35 SEX: F ROOM/BED: D.210 AUTHOR: SARITHA SY PHYSICIAN: REFERRING PHYSICIAN: FABIENNE DAVIDSON MD DATE OF SERVICE: 07/09/20 Discharge Plan Patient Name: CHRISTOPHER ROBERT Facility: [facility]:[place] : 1935 Planned Disposition: Anticipated Discharge Date: Discharge Date: Expected LOS: Initial Reviewer: [email or web address] Initial Review Date: 07/06/2020 Generated: 07/09/20 2:01 pm DCPIA - Discharge Planning Initial Assessment Updated by [email or web address]: Leila Ruvalcaba on 07/09/20 12:59 pm * Is the patient Alert and Oriented? No * PCP STUART * Pharmacy [facility] * Preadmission Environment Home Alone * ADLs Independent * List name and contact numbers for known caregivers / representatives who currently or will assist patient after discharge: Guera MALDONADO [phone] * Community resources currently utilized None * Additional services required to return to the preadmission environment? Yes * Can the patient safely return to the preadmission environment? No * Has this patient been hospitalized within the prior 30 days at any hospital? No Last DP export: 07/09/20 11:53 a Patient Name: CHRISTOPHER ROBERT Page 44419 at 1301 All edits/amendments must be made on the electronic document DICTATION DATE: 07/09/20 1301 PROVIDER CONTRACTING CONSULTANT: JEREMY 07/09/20 1301 RPT#: [id number] DC DATE: STATUS: ADM IN [place] [address] [place] [address] END OF REPORT
--- NOTE | 2020-07-09 13:29 | MORECARE ---
CASE MANAGEMENT DISCHARGE SUMMARY PATIENT: CHRISTOPHER ROBERT UNIT: [id number] ADM DATE: 07/06/20 AGE: 85 : 35 SEX: F ROOM/BED: D.210 AUTHOR: KERRIE,DOC PHYSICIAN: REFERRING PHYSICIAN: FABIENNE DAVIDSON MD DATE OF SERVICE: 07/09/20 Discharge Plan Patient Name: CHRISTOPHER ROBERT Facility: [facility]:[place] : 1935 Planned Disposition: Anticipated Discharge Date: Discharge Date: Expected LOS: Initial Reviewer: [email or web address] Initial Review Date: 07/06/2020 Generated: 07/09/20 2:28 pm Comments DCP- Discharge Planning Updated by [email or web address]: Leila Ruvalcaba on 07/09/20 12:[address] Patient Name: CHRISTOPHER ROBERT Admission Status: ER Accout number: [id number] Admission Date: 07-06-2020 : 1935 Admission Diagnosis:GASTROINTESTINAL HEMORRHAGE, UNSPECIFIED Attending: FABIENNE DAVIDSON Current LOS: 3 Anticipated DC Date: Planned Disposition: Primary Insurance: [facility] MEDICARE SOLUTIONS Discharge Planning Comments: CM received call from pt TUYETR/JOEL Jarrell at [phone] about pt condition. CM initiated initial DC assessment. CM educated Guera on the CM role and verbal consent given to complete assessment. CM verified patient's address, phone number, and emergency contact phone numbers. Patient lives at home alone and still drives. Guera states her mother is non compliant with her oxygen. States her mother sent the oxygen back because her mother stated she did not need it anymore. States she has had [facility] and would like to resume it if she can dc home. CM states it is not a safe DC plan to allow the pt to return home alone with out any assistance. CM talked about the availability of rehab or SNF services. Guera states she would like her to move in with her, but she lives out of state. States the daughter that lives close to her mother does not make good choices, and does not want her to move in with her. States she can provide transportation to get her mother to her. Cm states the patient will need ox at DC and will ensure that the patient will have enough e tanks to get her to [facility]. CM will continue to follow and will assist as needed with dc plans/needs. Casting Operator Helper: Leila Ruvalcaba DCPIA - Discharge Planning Initial Assessment Updated by [id number]: Leila Ruvalcaba on 07/09/20 12:59 pm * Is the patient Alert and Oriented? No * PCP STUART * Pharmacy [facility] * Preadmission Environment Home Alone * ADLs Independent * List name and contact numbers for known caregivers / representatives who currently or will assist patient after discharge: Guera MALDONADO [phone] * Community resources currently utilized None * Additional services required to return to the preadmission environment? Yes * Can the patient safely return to the preadmission environment? No * Has this patient been hospitalized within the prior 30 days at any hospital? No Last DP export: 07/09/20 12:01 p Patient Name: CHRISTOPHER ROBERT Page [phone] at 1329 All edits/amendments must be made on the electronic document DICTATION DATE: 07/09/20 1328 POOL TECHNICIAN: JEREMY 07/09/20 1328 RPT#: [id number] DC DATE: STATUS: ADM IN [facility] [address] [place] [address] END OF REPORT
--- NOTE | 2020-07-09 13:41 | NUR ---
Nutrition Follow-up: Advanced to clear liquids yesterday. Daughter reports pt drank a small amt at breakfast this AM. PACKAGE WORKER following; ST recs puree with thin liquids when appropriate. Wt: 93# (07/07) Labs noted: Na 157, Glu 129, Ca 8.4 Meds noted: D5 1/2NS @ 50, Protonix, electrolyte protocol -Encourage PO intake and honor food preferences within diet restrictions. -If unable to advance diet/PO intake remains poor, rec consider nutrition support. -Monitor wt. -RD following.
--- NOTE | 2020-07-09 16:38 | MORECARE ---
CASE MANAGEMENT DISCHARGE SUMMARY PATIENT: CHRISTOPHER ROBERT UNIT: [id number] ADM DATE: 07/06/20 AGE: 85 : 35 SEX: F ROOM/BED: D.2102 AUTHOR: KERRIE,DOC PHYSICIAN: REFERRING PHYSICIAN: FABIENNE DAVISDON MD DATE OF SERVICE: 07/09/20 Discharge Plan Patient Name: CHRISTOPHER ROBERT Facility: [facility]:[place] : 1935 Planned Disposition: Anticipated Discharge Date: Discharge Date: Expected LOS: Initial Reviewer: [email or web address] Initial Review Date: 07/06/2020 Generated: 07/09/20 5:38 pm Comments DCP- Discharge Planning Updated by [email or web address]: Leila Ruvalcaba on 07/09/20 3:[address] CM received a call Guera pt daughter (JOEL) who requests that CM speak with the nurse so that both sisters can be in pt room at once. Guera states that someone from the hospital told her that they would make special accommodations to the visitation policy for out of town visitors. CM states that she does not have the authority to tell the nurses to change visitation rule. States she can call administration and voice her concerns. Guera asks if CM will call administration and recommend that the family should have more visitors. CM states that increased visitors puts each person at an increased risk for COVID. Leila Ruvalcaba DCP- Discharge Planning Updated by [email or web address]: Leila Ruvalcaba on 07/09/20 12:[address] Patient Name: CHRISTOPHER ROBERT Admission Status: ER Accout number: [id number] Admission Date: 07-06-2020 : 1935 Admission Diagnosis:GASTROINTESTINAL HEMORRHAGE, UNSPECIFIED Attending: FABIENNE DAVIDSON Current LOS: 3 Anticipated DC Date: Planned Disposition: Primary Insurance: [facility] MEDICARE SOLUTIONS Discharge Planning Comments: CM received call from pt DTR/JOEL Jarrell at [phone] about pt condition. CM initiated initial DC assessment. CM educated Guera on the CM role and verbal consent given to complete assessment. CM verified patient's address, phone number, and emergency contact phone numbers. Patient lives at home alone and still drives. Guera states her mother is non compliant with her oxygen. States her mother sent the oxygen back because her mother stated she did not need it anymore. States she has had [facility] and would like to resume it if she can dc home. CM states it is not a safe DC plan to allow the pt to return home alone with out any assistance. CM talked about the availability of rehab or SNF services. Guera states she would like her to move in with her, but she lives out of state. States the daughter that lives close to her mother does not make good choices, and does not want her to move in with her. States she can provide transportation to get her mother to her. Cm states the patient will need ox at DC and will ensure that the patient will have enough e tanks to get her to Guera' house. CM will continue to follow and will assist as needed with dc plans/needs. Tool Procurement Coordinator: Leila Ruvalcaba DCPIA - Discharge Planning Initial Assessment Updated by [id number]: Leila Ruvalcaba on 07/09/20 12:59 pm * Is the patient Alert and Oriented? No * PCP STUART * Pharmacy [facility] * Preadmission Environment Home Alone * ADLs Independent * List name and contact numbers for known caregivers / representatives who currently or will assist patient after discharge: Guera JOEL [phone] * Community resources currently utilized None * Additional services required to return to the preadmission environment? Yes * Can the patient safely return to the preadmission environment? No * Has this patient been hospitalized within the prior 30 days at any hospital? No Last DP export: 07/09/20 12:29 p Patient Name: CHRISTOPHER ROBERT Page 71320 at 1638 All edits/amendments must be made on the electronic document DICTATION DATE: 07/09/201637 REFRIGERATION REPAIR SUPERVISOR: JEREMY 07/09/201637 RPT#: [id number] DC DATE: STATUS: ADM IN [facility] [address] [place] [address] END OF REPORT
[2020-07-09 17:18] VITALS: BP 135/64
--- NOTE | 2020-07-09 17:37 | NUR ---
1721--BROUGHT BACK FROM ENDOSCOPY AT THIS TIME--RESP THERAPY CONTACTED TO GIVE PT BREATH TX AND SUCTION--02SAT AT FIRST 82% W/5L HI-JENNYFER 02 IN PROGRESS--ENDOSCOPY STAYED W/PT AND ASSISTED UNTIL SAT INCREASED TO 93%--RESP THERAPY THEN IN ROOM TO GIVE TREATMENT--PT TOLERATING ALL WELL. MOF AT BEDSIDE. WILL CONTINUE TO MONITOR.
--- NOTE | 2020-07-09 17:40 | NUR ---
1543--CONTACTED PT'S JOEL DAVIS AND RECEIVED TELEPHONE CONSENT FOR PT TO HAVE EGD AT THIS TIME--TREMAYNE/JOSE WITNESSED TELEPHONE CONSENT.
--- NOTE | 2020-07-09 17:41 | NUR ---
1329--CONTACTED PT'S JOEL DORSEY AND RECEIVED CONSENT FOR BLOOD TRANSFUSION AT THIS TIME--STALIN/JOSE WITNESSED/TELEPHONE CONSENT.
--- NOTE | 2020-07-09 17:42 | NUR ---
1430--OBTAINED SECOND IV SITE 20GA TO LEFT FA PT TOLERATED ALL WELL. ALONE IN ROOM AT THIS TIME.
--- NOTE | 2020-07-09 18:31 | NUR ---
1752--PLACED PT ON THE BIPAP AT THIS TIME FOR 02SAT 88% PT MOUTH BREATHING AND NOT BREATHING THROUGH NOSE--02SAT QUICKLY UP TO 93%, MOF AT BEDSIDE. ATTEMPTED TO SUCTION PT--PT REFUSES TO OPEN MOUTH FOR NURSE WILL CONTINUE TO MONITOR.
[2020-07-09 20:00] VITALS: BP 120/55
--- NOTE | 2020-07-09 22:00 | NUR ---
FIRST ORDERED UNIT OF PRBC STARTED TO 20G PIV IN LEFT FA. PT INCONT OF LOOSE BLACK STOOL. LINEN CHANGE PROVIDED. PT REMAIN CONFUSED AND LETHARGIC. NO DISTRESS OBSERVED. CALLL IGHT IN REACH. WILL CPOC.
--- NOTE | 2020-07-10 00:33 | NUR ---
PRBC CONTINUES TO INFUSE. NO S/S OF AN ADVERSE REACTION NOTED. NO DISTRESS OBSERVED. WILL CPOC.
--- NOTE | 2020-07-10 02:06 | NUR ---
SECOND ORDERED UNIT OF PRBC INFUSION INITIATED. INFUSING TO 20G IN LEFT FA, NO S/S OF AN ADVERESE REACTION OBSERVED.
[2020-07-10 04:00] VITALS: BP 164/81
[2020-07-10 08:24] VITALS: BP 173/62
[2020-07-10 09:17] LABS: MCH 28.6 pg (26.0-34.0); MCHC 31.1 g/dL (31.0-37.0); MEAN PLATELET VOLUME 9.9 fL (7.4-10.4); RDW 18.1 % (11.5-14.5)
[2020-07-10 09:18] LABS: HEMATOCRIT 35.7 % (36.0-48.0); HEMOGLOBIN 11.1 g/dL (12-16); PLATELET COUNT 185 10x3/uL (130-400); RBC 3.88 10x6/uL (4.00-5.40); WBC 10.3 10x3/uL (4.8-10.8)
[2020-07-10 09:31] LABS: CALCIUM 8.5 mg/dL (8.5-10.1); CARBON DIOXIDE 30.5 mmol/L (21.0-32.0); POTASSIUM - SERUM 3.5 mmol/L (3.5-5.1)
[2020-07-10 09:32] LABS: CREATININE - SERUM 0.8 mg/dL (0.6-1.3)
[2020-07-10 09:40] LABS: LYMPHOCYTES 8 % (15-50); MONOCYTES 1 % (2-11); NEUTROPHILS 91 % (40-80); PLATELET ESTIMATE NORMAL
[2020-07-10 09:41] LABS: TARGET CELLS OCC
[2020-07-10 16:24] VITALS: BP 165/71
--- NOTE | 2020-07-10 20:03 | NUR ---
RECIEVED UP IN BED WITH EYES OPEN AND DAUGHTER AT BEDSIDE. ALERT AND ORIENTED. INCONTINENT OF BLADDER. CHANGED AND REPOSITIONED PRN. O2 EPR HF CANNULA AT 5. IV TO LT FA WITH D5 1/2 NS AT 50CC/HR. VERY [place] AND HAVE TO REPEAT QUESTIONS. ANSWERS APPROPRIATLY. DENIES ANY NEEDS AT THIS TIME.
[2020-07-10 21:14] VITALS: BP 128/63
[2020-07-11 00:16] VITALS: BP 167/85
--- NOTE | 2020-07-11 01:24 | NUR ---
RESTING IN BED WITH EYES CLOSED AND BIPAP IN PLACE. NO S/S OF DISTRESS OBSERVED.
[2020-07-11 04:00] VITALS: BP 174/86
[2020-07-11 05:57] LABS: BASOPHILS 0.1 % (0-2); EOSINOPHILS 0 % (0-7); HEMATOCRIT 37.3 % (36.0-48.0); HEMOGLOBIN 11.4 g/dL (12-16); IMMATURE GRANULOCYTES 1.5 % (0-5); LYMPHOCYTES 6.6 % (15-50); MCH 28.7 pg (26.0-34.0); MCHC 30.6 g/dL (31.0-37.0); MEAN PLATELET VOLUME 10.3 fL (7.4-10.4); MONOCYTES 6.4 % (2-11); NEUTROPHILS 85.4 % (40-80); PLATELET COUNT 165 10x3/uL (130-400); RBC 3.97 10x6/uL (4.00-5.40); RDW 18.1 % (11.5-14.5); WBC 11.6 10x3/uL (4.8-10.8)
[2020-07-11 06:18] LABS: ANION GAP 6.8 mmol/L (8-16); CALCIUM 8.5 mg/dL (8.5-10.1); CARBON DIOXIDE 33.7 mmol/L (21.0-32.0); CREATININE - SERUM 0.9 mg/dL (0.6-1.3); POTASSIUM - SERUM 3.5 mmol/L (3.5-5.1)
--- NOTE | 2020-07-11 07:29 | NUR ---
PT RESTING COMFORTABLY IN BED WITH EYES CLOSED BUT EASILY AROUSES TO VOICE. RESP EVEN AND NONLABORED ON 5L HF. LT FA INFUSING D51/2 AT 50CC/HR. CALL LIGHT IN REACH, BEDSIDE RAILS X2, NAD NOTED, WILL CONTINUE TO MONITOR.
[2020-07-11 08:13] VITALS: BP 195/80
--- NOTE | 2020-07-11 08:54 | NUR ---
AM MEDS GIVEN AT THIS TIME. PT ALERT BUT NONVERBAL AT THIS TIME. PT DENIES ANY NEEDS AT THIS TIME. CALL LIGHT IN REACH, FAMILY AT BEDSIDE, NAD NOTED, WILL CONITNUE PLAN OF CARE.
--- NOTE | 2020-07-11 11:15 | NUR ---
LT FA IV LEAKING. D/C IV WITH CATHETER TIP INTACT. NEW 20G IV STARTED TO LT UPPER FA. X1 STICK. PT TOLERATED WELL, SECURED IV TO SKIN AND HOOKED FLUIDS BACK UP. ALSO CLEANED PT UP FROM INCONT EPISODE. PT DENIES ANY OTHER NEEDS AT THIS TIME. CALL LIGHT IN REACH, FAMILY AT BEDSIDE,NAD NOTED,W ILL CONTINUE TO MONITOR.
[2020-07-11 11:55] VITALS: BP 165/75
--- NOTE | 2020-07-11 13:59 | NUR ---
PT RESTING COMFORTABLY IN BED, DENIES ANY NEEDS AT THIS TIME. TURNED PT TO LT SIDE. CALL LIGHT IN REACH, NAD NOTED,W ILL CONTINUE TO MONITOR.
[2020-07-11 16:21] VITALS: BP 139/73
[2020-07-11 18:56] VITALS: BP 135/73
--- NOTE | 2020-07-11 21:18 | NUR ---
PT PULLED IV OUT OF LEFT FA, NEW 20G PIV STARTED TO LEFT WRIST X1 ATTEMPT. PT TOLERATED WILL. PT CONTINUES TO HAVE BLACK LOOSE STOOLS. NO FUTHER NEEDS EXPRESSED. NO FAMILY AT BEDSIDE. WILL CPOC.
--- NOTE | 2020-07-11 22:34 | NUR ---
PT REFUSED TO WEAR BIPAP
--- NOTE | 2020-07-11 23:18 | NUR ---
ASSUME CARE OF PATIENT FROM PRIOR NURSE. PT RESTING IN BED WITH O2 @ 5L/HF. HAS REFUSED BIPAP. IVF INFUSING TO LEFT WRIST. NO DISTRESS. CLEAN/DRY. FALL PRECAUTIONS. CALL LIGHT IN REACH. SR UP X 2.
[2020-07-12 03:54] VITALS: BP 132/69
[2020-07-12 05:53] LABS: BASOPHILS 0 % (0-2); EOSINOPHILS 0.3 % (0-7); HEMOGLOBIN 11.6 g/dL (12-16); IMMATURE GRANULOCYTES 1.5 % (0-5); LYMPHOCYTES 7.8 % (15-50); MCH 27.8 pg (26.0-34.0); MCHC 29.7 g/dL (31.0-37.0); MCV 93.3 fL (80.0-100.0); MEAN PLATELET VOLUME 10.3 fL (7.4-10.4); MONOCYTES 4.2 % (2-11); NEUTROPHILS 86.2 % (40-80); PLATELET COUNT 182 10x3/uL (130-400); RBC 4.18 10x6/uL (4.00-5.40); RDW 16.9 % (11.5-14.5); WBC 12.9 10x3/uL (4.8-10.8)
[2020-07-12 07:17] VITALS: BP 123/72
--- NOTE | 2020-07-12 07:20 | NUR ---
RECIEVE REPORT. RESTING IN BED WITH EYES CLOSED. NO SIGNS OF DISTRESS. CONTINUE PLAN OF CARE AND SAFETY PRECAUTIONS.
[2020-07-12 07:44] VITALS: BP 139/60
[2020-07-12 08:52] LABS: CALC OSMOLALITY 285 mosm/kg (275-300); CALCIUM 8.2 mg/dL (8.5-10.1); CARBON DIOXIDE 35.6 mmol/L (21.0-32.0); CHLORIDE - SERUM 105 mmol/L (98-107); CREATININE - SERUM 0.7 mg/dL (0.6-1.3); GLUCOSE 102 mg/dL (74-106); POTASSIUM - SERUM 3.1 mmol/L (3.5-5.1); SODIUM 143 mmol/L (136-145); eGFR NON AFRICAN AMERICAN 84 mL/min (90-120)
[2020-07-12 08:53] LABS: UREA NITROGEN 14 mg/dL (7-18)
[2020-07-12 11:40] VITALS: BP 109/67
--- NOTE | 2020-07-12 14:15 | NUR ---
OT NOTE: PT REQUIRED MOD ASSIST FOR SUPINE TO SIT..REQUIRES REPETITION OF VERBAL CUES DUE TO ENTERPRISE AND SLOW PROCESSING. PT REMAINS CONFUSED; INCREASED DIFFICULTY WITH TRANSFERS SHE IS NOT WT SHIFTING TO L SIDE IN ORDER TO ADVANCE R FOOT TO TAKE A STEP.. SHE IS ALSO VERY WEAK, AND FATIGUES QUICKLY. SHE CAN PERFORM TRANSFERS FROM BED TO COMMODE WITH PIVOT TRANSFER AND MAX ASSIST, HOWEVER, WHEN ATTEMPTING AMBULATION, SHE IS ONLY ABLE TO TAKE A FEW STEPS BEFORE SHE BEGINS TO LEAN HARD TO R SIDE AND IS NO LONGER ABLE TO SHIFT WT. MAX ASSIST WITH TOILET HYGIENE. MAX ASSIST WITH DRESSING. NABILA HELMS, OTR/L
--- NOTE | 2020-07-12 14:38 | MORECARE ---
CASE MANAGEMENT DISCHARGE SUMMARY PATIENT: CHRISTOPHER ROBERT UNIT: [id number] ADM DATE: 07/06/20 AGE: 85 : 35 SEX: F ROOM/BED: D.210 AUTHOR: KERRIE,DOC PHYSICIAN: REFERRING PHYSICIAN: FABIENNE DAVIDSON MD DATE OF SERVICE: 07/12/20 Discharge Plan Patient Name: CHRISTOPHER ROBERT Facility: [facility]:[place] : 1935 Planned Disposition: Anticipated Discharge Date: Discharge Date: Expected LOS: Initial Reviewer: [email or web address] Initial Review Date: 07/06/2020 Generated: 07/12/20 3:38 pm Comments DCP- Discharge Planning Updated by [email or web address]: Kathi Stallings on 07/12/20 1:[address] CM went to room and spoke with daughter, Madyson, and the patient regarding discharge plan. Patient is agreeable to a rehab and Madyson asks me to call Guera for the EDI. I called Guera (daughter and POA) and she would like a referral to [facility]. I gave her the web site to compare nursing homes for a second choice and she will call me back with the second choice. CM will send referral to [facility]. DCP- Discharge Planning Updated by [id number]: Leila Ruvalcaba on 07/09/20 3:[address] CM received a call Guera pt daughter (POA) who requests that CM speak with the nurse so that both sisters can be in pt room at once. Guera states that someone from the hospital told her that they would make special accommodations to the visitation policy for out of town visitors. CM states that she does not have the authority to tell the nurses to change visitation rule. States she can call administration and voice her concerns. Guera asks if CM will call administration and recommend that the family should have more visitors. ORTEGA states that increased visitors puts each person at an increased risk for COVID. Leila Ruvalcaba DCP- Discharge Planning Updated by [email or web address]: Leila Ruvalcaba on 07/09/20 12:[address] Patient Name: CHRISTOPHER ROBERT Admission Status: ER Accout number: [id number] Admission Date: 07-06-2020 : 1935 Admission Diagnosis:GASTROINTESTINAL HEMORRHAGE, UNSPECIFIED Attending: FABIENNE DAVIDSON Current LOS: 3 Anticipated DC Date: Planned Disposition: Primary Insurance: [facility] MEDICARE SOLUTIONS Discharge Planning Comments: CM received call from pt DTR/JOEL Chrystal at [phone] about pt condition. CM initiated initial DC assessment. CM educated Guera on the CM role and verbal consent given to complete assessment. CM verified patient's address, phone number, and emergency contact phone numbers. Patient lives at home alone and still drives. Guera states her mother is non compliant with her oxygen. States her mother sent the oxygen back because her mother stated she did not need it anymore. States she has had [facility] and would like to resume it if she can dc home. CM states it is not a safe DC plan to allow the pt to return home alone with out any assistance. CM talked about the availability of rehab or SNF services. Guera states she would like her to move in with her, but she lives out of state. States the daughter that lives close to her mother does not make good choices, and does not want her to move in with her. States she can provide transportation to get her mother to her. Cm states the patient will need ox at DC and will ensure that the patient will have enough e tanks to get her to Guera' house. CM will continue to follow and will assist as needed with dc plans/needs. Cream Dipper: Leila Ruvalcaba DCPIA - Discharge Planning Initial Assessment Updated by [email or web address]: Leila Ruvalcaba on 07/09/20 12:59 pm * Is the patient Alert and Oriented? No * PCP STUART * Pharmacy [facility] * Preadmission Environment Home Alone * ADLs Independent * List name and contact numbers for known caregivers / representatives who currently or will assist patient after discharge: Guera MALDONADO [phone] * Community resources currently utilized None * Additional services required to return to the preadmission environment? Yes * Can the patient safely return to the preadmission environment? No * Has this patient been hospitalized within the prior 30 days at any hospital? No Coverage Notice Reviewer: [id number] Lima Stallings Notice Issued Date-Time: 07/12/2020 14:30 Notice Type: Patient Choice Letter Notice Delivered To: Family Member Relationship to Patient: Daughter Rotor Plate Washer Name: Guera Delivery Method: HAND - Hand Delivered Thao Days: Prior Verbal Notification: Recipient Understood Notice: Yes Recipient Signature: Yes Med Rec Note Co-signed by Attending: Coverage Notice Comment: EDI for Poli Morrissey DP export: 07/09/20 3:38 p Patient Name: CHRISTOPHER ROBERT Page [phone] at 1438 All edits/amendments must be made on the electronic document DICTATION DATE: 07/12/20 1438 CHILD PSYCHOLOGIST: JEREMY 07/12/20 1438 RPT#: [id number] DC DATE: STATUS: ADM IN [facility] [address] [place] [address] END OF REPORT
--- NOTE | 2020-07-12 14:39 | NUR ---
OT NOTE: PT REQUIRED MOD/MAX A FOR SIMPLE BED MOB TASKS. PT COMPLETED SIDE ROLLING WITH MOD/MAX A. PT COMPLETED FACE AND HAND HYGIENE WITH MIN/MOD A. [phone] THANK YOU,AD HENDRICKS
--- NOTE | 2020-07-12 14:58 | MORECARE ---
CASE MANAGEMENT DISCHARGE SUMMARY PATIENT: CHIRSTOPHER ROBERT UNIT: [id number] ADM DATE: 07/06/20 AGE: 85 : 35 SEX: F ROOM/BED: D.2106 AUTHOR: KERRIE,DOC PHYSICIAN: REFERRING PHYSICIAN: FABIENNE DAVIDSON MD DATE OF SERVICE: 07/12/20 Discharge Plan Patient Name: CHRISTOPHER ROBERT Facility: [facility]:[place] : 1935 Planned Disposition: Anticipated Discharge Date: Discharge Date: Expected LOS: Initial Reviewer: [email or web address] Initial Review Date: 07/06/2020 Generated: 07/12/20 3:58 pm Comments DCP- Discharge Planning Updated by [email or web address]: Kathi Stallings on 07/12/20 1:[address] CM went to room and spoke with daughter, Madyson, and the patient regarding discharge plan. Patient is agreeable to a rehab and Madyson asks me to call Guera for the EDI. I called Guera (daughter and POA) and she would like a referral to [facility]. I gave her the web site to compare nursing homes for a second choice and she will call me back with the second choice. CM will send referral to [facility]. DCP- Discharge Planning Updated by [email or web address]: Leila Ruvalcaba on 07/09/20 3:[address] CM received a call Guera pt daughter (POA) who requests that CM speak with the nurse so that both sisters can be in pt room at once. Guera states that someone from the hospital told her that they would make special accommodations to the visitation policy for out of town visitors. CM states that she does not have the authority to tell the nurses to change visitation rule. States she can call administration and voice her concerns. Guera asks if CM will call administration and recommend that the family should have more visitors. ORTEGA states that increased visitors puts each person at an increased risk for COVID. Leila Ruvalcaba DCP- Discharge Planning Updated by [id number]: Leila Ruvalcaba on 07/09/20 12:[address] Patient Name: CHRISTOPHER ROBERT Admission Status: ER Accout number: [id number] Admission Date: 07-06-2020 : 1935 Admission Diagnosis:GASTROINTESTINAL HEMORRHAGE, UNSPECIFIED Attending: FABIENNE DAVIDSON Current LOS: 3 Anticipated DC Date: Planned Disposition: Primary Insurance: [facility] [employer] Discharge Planning Comments: CM received call from pt DTR/JOEL Chrystal at [phone] about pt condition. CM initiated initial DC assessment. CM educated Guera on the CM role and verbal consent given to complete assessment. CM verified patient's address, phone number, and emergency contact phone numbers. Patient lives at home alone and still drives. Guera states her mother is non compliant with her oxygen. States her mother sent the oxygen back because her mother stated she did not need it anymore. States she has had [facility] and would like to resume it if she can dc home. CM states it is not a safe DC plan to allow the pt to return home alone with out any assistance. CM talked about the availability of rehab or SNF services. Guera states she would like her to move in with her, but she lives out of state. States the daughter that lives close to her mother does not make good choices, and does not want her to move in with her. States she can provide transportation to get her mother to her. Cm states the patient will need ox at DC and will ensure that the patient will have enough e tanks to get her to Guera' house. CM will continue to follow and will assist as needed with dc plans/needs. Ranch Hand Livestock: Leila Ruvalcaba DCPIA - Discharge Planning Initial Assessment Updated by [email or web address]: Leila Ruvalcaba on 07/09/20 12:59 pm * Is the patient Alert and Oriented? No * PCP STUART * Pharmacy [facility] * Preadmission Environment Home Alone * ADLs Independent * List name and contact numbers for known caregivers / representatives who currently or will assist patient after discharge: Guera MALDONADO [phone] * Community resources currently utilized None * Additional services required to return to the preadmission environment? Yes * Can the patient safely return to the preadmission environment? No * Has this patient been hospitalized within the prior 30 days at any hospital? No External Providers External Provider: [facility] Next Contact Date: Service Request Date: Service Type: Resolution: Reviewer: Comments: Coverage Notice Reviewer: [id number] - Kathi Stallings Notice Issued Date-Time: 07/12/2020 14:30 Notice Type: Patient Choice Letter Notice Delivered To: Family Member Relationship to Patient: Daughter Tele Grout Sewer Line Repairer Name: Guera Delivery Method: HAND - Hand Delivered Thao Days: Prior Verbal Notification: Recipient Understood Notice: Yes Recipient Signature: Yes Med Rec Note Co-signed by Attending: Coverage Notice Comment: EDI for [facility] Last DP export: 07/12/20 1:38 p Patient Name: CHRISTOPHER ROBERT Page [id number] at 1458 All edits/amendments must be made on the electronic document DICTATION DATE: 07/12/208 GERMINATION TESTING MANAGER: JEREMY 07/12/20 1458 RPT#: [id number] DC DATE: STATUS: ADM IN [facility] [address] [place] [address] END OF REPORT
--- NOTE | 2020-07-12 15:30 | MORECARE ---
CASE MANAGEMENT DISCHARGE SUMMARY PATIENT: CHRISTOPHER ROBERT UNIT: [id number] ADM DATE: 07/06/20 AGE: 85 : 35 SEX: F ROOM/BED: D.2108 AUTHOR: KERRIE,DOC PHYSICIAN: REFERRING PHYSICIAN: FABIENNE DAVIDSON MD DATE OF SERVICE: 07/12/20 Discharge Plan Patient Name: CHRISTOPHER ROBERT Facility: [facility]:[place] : 1935 Planned Disposition: Anticipated Discharge Date: Discharge Date: Expected LOS: Initial Reviewer: [email or web address] Initial Review Date: 07/06/2020 Generated: 07/12/20 4:30 pm Comments DCP- Discharge Planning Updated by [id number]: Kathi Stallings on 07/12/20 2:[address] CM spoke with Jasper at [facility] and referral faxed. CM will continue to follow and assist with discharge planning/needs. DCP- Discharge Planning Updated by [email or web address]: Kathi Stallings on 07/12/20 1:[address] CM went to room and spoke with daughter, Madyson, and the patient regarding discharge plan. Patient is agreeable to a rehab and Madyson asks me to call Guera for the EDI. I called Guera (daughter and POA) and she would like a referral to [facility]. I gave her the web site to compare nursing homes for a second choice and she will call me back with the second choice. CM will send referral to [facility]. DCP- Discharge Planning Updated by [email or web address]: Leila Ruvalcaba on 07/09/20 3:[address] CM received a call Guera pt daughter (POA) who requests that CM speak with the nurse so that both sisters can be in pt room at once. Guera states that someone from the hospital told her that they would make special accommodations to the visitation policy for out of town visitors. CM states that she does not have the authority to tell the nurses to change visitation rule. States she can call administration and voice her concerns. Guera asks if CM will call administration and recommend that the family should have more visitors. ORTEGA states that increased visitors puts each person at an increased risk for COVID. Leila Ruvalcaba DCP- Discharge Planning Updated by [id number]: Leila Ruvalcaba on 07/09/20 12:[address] Patient Name: CHRISTOPHER ROBERT Admission Status: ER Accout number: [id number] Admission Date: 07-06-2020 : 1935 Admission Diagnosis:GASTROINTESTINAL HEMORRHAGE, UNSPECIFIED Attending: FABIENNE DAVIDSON Current LOS: 3 Anticipated DC Date: Planned Disposition: Primary Insurance: [facility] MEDIC[facility] SOLUTIONS Discharge Planning Comments: CM received call from pt DTR/JOEL Jarrell at [phone] about pt condition. CM initiated initial DC assessment. CM educated Guera on the CM role and verbal consent given to complete assessment. CM verified patient's address, phone number, and emergency contact phone numbers. Patient lives at home alone and still drives. Guera states her mother is non compliant with her oxygen. States her mother sent the oxygen back because her mother stated she did not need it anymore. States she has had [facility] and would like to resume it if she can dc home. CM states it is not a safe DC plan to allow the pt to return home alone with out any assistance. CM talked about the availability of rehab or SNF services. Guera states she would like her to move in with her, but she lives out of state. States the daughter that lives close to her mother does not make good choices, and does not want her to move in with her. States she can provide transportation to get her mother to her. Cm states the patient will need ox at DC and will ensure that the patient will have enough e tanks to get her to Guera' house. CM will continue to follow and will assist as needed with dc plans/needs. Dressing Machine Operator: Leila Ruvalcaba DCPIA - Discharge Planning Initial Assessment Updated by [email or web address]: Leila Ruvalcaba on 07/09/20 12:59 pm * Is the patient Alert and Oriented? No * PCP STUART * Pharmacy [facility] * Preadmission Environment Home Alone * ADLs Independent * List name and contact numbers for known caregivers / representatives who currently or will assist patient after discharge: Guera MALDONADO [phone] * Community resources currently utilized None * Additional services required to return to the preadmission environment? Yes * Can the patient safely return to the preadmission environment? No * Has this patient been hospitalized within the prior 30 days at any hospital? No Coverage Notice Reviewer: [id number] Lima Stallings Notice Issued Date-Time: 07/12/2020 14:30 Notice Type: Patient Choice Letter Notice Delivered To: Family Member Relationship to Patient: Daughter Regional Property Manager Name: Guera Delivery Method: HAND - Hand Delivered Thao Days: Prior Verbal Notification: Recipient Understood Notice: Yes Recipient Signature: Yes Med Rec Note Co-signed by Attending: Coverage Notice Comment: EDI for [facility] DP export: 07/12/20 1:58 p Patient Name: CHRISTOPHER ROBERT Page [id number] at 1530 All edits/amendments must be made on the electronic document DICTATION DATE: 07/12/20 1530 FRIT MIXER: JEREMY 07/12/20 1530 RPT#: [id number] DC DATE: STATUS: ADM IN [facility] [address] [place] [address] END OF REPORT
--- NOTE | 2020-07-12 15:57 | MORECARE ---
CASE MANAGEMENT DISCHARGE SUMMARY PATIENT: CHRISTOPHER ROBERT UNIT: [id number] ADM DATE: 07/06/20 AGE: 85 : 35 SEX: F ROOM/BED: D.2102 AUTHOR: KERRIE,DOC PHYSICIAN: REFERRING PHYSICIAN: FABIENNE DAVIDSON MD DATE OF SERVICE: 07/12/20 Discharge Plan Patient Name: CHRISTOPHER ROBERT Facility: [facility]:[place] : 1935 Planned Disposition: Anticipated Discharge Date: Discharge Date: Expected LOS: Initial Reviewer: [email or web address] Initial Review Date: 07/06/2020 Generated: 07/12/20 4:56 pm Comments DCP- Discharge Planning Updated by [id number]: Kathi Stallings on 07/12/20 2:[address] Jasper called me and informed me [facility] is not taking any admissions at this time because they have positive Covid patients there and are unsure when they can admit. I called Guera back for a second choice and explained IP rehab vs SNF and states that she will need to review the list of SNF and rehab and call me in the morning for a second choice. CM will continue to follow and assist with discharge planning/needs. DCP- Discharge Planning Updated by [id number]: Kathi Stallings on 07/12/20 2:[address] CM spoke with Jasper at [facility] and referral faxed. CM will continue to follow and assist with discharge planning/needs. DCP- Discharge Planning Updated by [id number]: Kathi Stallings on 07/12/20 1:[address] CM went to room and spoke with daughter, Madyson, and the patient regarding discharge plan. Patient is agreeable to a rehab and Madyson asks me to call Guera for the EDI. I called Guera (daughter and POA) and she would like a referral to [facility]. I gave her the web site to compare nursing homes for a second choice and she will call me back with the second choice. CM will send referral to [facility]. DCP- Discharge Planning Updated by [id number]: Leila Ruvalcaba on 07/09/20 3:[address] CM received a call Guera pt daughter (POA) who requests that CM speak with the nurse so that both sisters can be in pt room at once. Guera states that someone from the hospital told her that they would make special accommodations to the visitation policy for out of town visitors. CM states that she does not have the authority to tell the nurses to change visitation rule. States she can call administration and voice her concerns. Guera asks if CM will call administration and recommend that the family should have more visitors. CM states that increased visitors puts each person at an increased risk for COVID. Leila Ruvalcaba DCP- Discharge Planning Updated by [email or web address]: Leila Ruvalcaba on 07/09/20 12:[address] Patient Name: CHRISTOPHER ROBERT Admission Status: ER Accout number: [id number] Admission Date: 07-06-2020 : 1935 Admission Diagnosis:GASTROINTESTINAL HEMORRHAGE, UNSPECIFIED Attending: FABIENNE DAVIDSON Current LOS: 3 Anticipated DC Date: Planned Disposition: Primary Insurance: [facility] MEDICARE SOLUTIONS Discharge Planning Comments: CM received call from pt DTR/JOEL [place] at [phone] about pt condition. CM initiated initial DC assessment. CM educated Guera on the CM role and verbal consent given to complete assessment. CM verified patient's address, phone number, and emergency contact phone numbers. Patient lives at home alone and still drives. Guera states her mother is non compliant with her oxygen. States her mother sent the oxygen back because her mother stated she did not need it anymore. States she has had [facility] and would like to resume it if she can dc home. CM states it is not a safe DC plan to allow the pt to return home alone with out any assistance. CM talked about the availability of rehab or SNF services. Guera states she would like her to move in with her, but she lives out of state. States the daughter that lives close to her mother does not make good choices, and does not want her to move in with her. States she can provide transportation to get her mother to her. Cm states the patient will need ox at DC and will ensure that the patient will have enough e tanks to get her to Guera' house. CM will continue to follow and will assist as needed with dc plans/needs. Planner Chief: Leila Ruvalcaba DCPIA - Discharge Planning Initial Assessment Updated by [id number]: Leila Ruvalcaba on 07/09/20 12:59 pm * Is the patient Alert and Oriented? No * PCP STUART * Pharmacy [facility] * Preadmission Environment Home Alone * ADLs Independent * List name and contact numbers for known caregivers / representatives who currently or will assist patient after discharge: Guera UBALDO [phone] * Community resources currently utilized None * Additional services required to return to the preadmission environment? Yes * Can the patient safely return to the preadmission environment? No * Has this patient been hospitalized within the prior 30 days at any hospital? No Coverage Notice Reviewer: [id number] Lima Stallings Notice Issued Date-Time: 07/12/2020 14:30 Notice Type: Patient Choice Letter Notice Delivered To: Family Member Relationship to Patient: Daughter Account Support Analyst Name: Guera Delivery Method: HAND - Hand Delivered Thao Days: Prior Verbal Notification: Recipient Understood Notice: Yes Recipient Signature: Yes Med Rec Note Co-signed by Attending: Coverage Notice Comment: EDI for [facility] DP export: 07/12/20 2:30 p Patient Name: CHRISTOPHER ROBERT Page [id number] at 1557 All edits/amendments must be made on the electronic document DICTATION DATE: 07/12/201555 REGULATORY SERVICES CONSULTANT: JEREMY 07/12/20 155 RPT#: [id number] DC DATE: STATUS: ADM IN [facility] [address] [place] [address] END OF REPORT
--- NOTE | 2020-07-12 16:02 | NUR ---
Rehab Prescreening Consult recieved and the chart has been reviewed. Per the CM nots this patient wants to go to [facility]. Lisha Coyle RN Clinical [place], Rehab
[2020-07-12 17:10] VITALS: BP 117/65
[2020-07-12 20:00] VITALS: BP 99/57
--- NOTE | 2020-07-12 22:18 | NUR ---
1904--ON ASSESSMENT PT'S RIGHT FOREARM BRUISED W/RAISED AREA--PT DENIES ANY PAIN TO AREA, PROPPED RIGHT ARM UP W/PILLOWS AT THIS TIME. MOF AT BEDSIDE.
[2020-07-13] VITALS: BP 128/76
--- NOTE | 2020-07-13 00:15 | NUR ---
PLACED DRY PAD UNDERNEATH PT AT THIS TIME--PT RESTING WELL, DENIES ANY FURTHER NEEDS.
--- NOTE | 2020-07-13 02:53 | NUR ---
0200--LYING IN BED W/EYES CLOSED, NO DISTRESS NOTED.
[2020-07-13 04:00] VITALS: BP 131/74
--- NOTE | 2020-07-13 05:24 | NUR ---
PT'S LINENS GOWN AND PADDING CHANGED ON BED AT THIS TIME, NEW PURE WICK IN PLACE, PT TOLERATED ALL WELL. DENIES ANY NEEDS. NO DISTRESS NOTED.
[2020-07-13 07:00] VITALS: BP 139/64
--- NOTE | 2020-07-13 07:00 | NUR ---
RECEIVED REPORT. ASSUMED CARE OF PATIENT. PATIENT RESTING IN BED WITH EYES CLOSED. EASILY AROUSED. REPORTED THAT PATIENT REFUSED BIPAP, BIPAP REMAINS AT BEDSIDE. PATIENT DENIES NEEDS AT THIS TIME. CALL LIGHT WITHIN REACH. BEDSIDE SHIFT REPORT COMPLETE. WHITE BOARD UPDATED. NO DISTRESS.
--- NOTE | 2020-07-13 09:30 | NUR ---
STUDENT NURSES AT BEDSIDE PROVIDING COMPLETE LINEN CHANGE AND INCONTINENT CARES.
--- NOTE | 2020-07-13 10:23 | NUR ---
Nutrition Follow-up: Family reports pt eating much better since diet advanced. Ate ~50% of breakfast this AM. Denies N/V/C/D, chewing/swallowing difficulties. Diet: Gluten-free Wt: 93# (07/07) Last BM: 07/13 Labs noted: K+ 3.1, Ca 8.2 Meds noted: HCTZ, Protonix, D5 1/2NS @ 50, electrolyte protocol -Encourage PO intake and honor food preferences within diet restrictions. -Monitor wt. -RD following.
[2020-07-13 11:00] VITALS: BP 116/58
--- NOTE | 2020-07-13 11:50 | NUR ---
THERAPY AT BEDSIDE TO ASSIST PATIENT BACK TO BED. NO DISTRESS.
--- NOTE | 2020-07-13 12:44 | MORECARE ---
CASE MANAGEMENT DISCHARGE SUMMARY PATIENT: CHRISTOPHER ROBERT UNIT: [id number] ADM DATE: 07/06/20 AGE: 85 : 35 SEX: F ROOM/BED: D.2102 AUTHOR: KERRIE,DOC PHYSICIAN: REFERRING PHYSICIAN: FABIENNE DAVIDSON MD DATE OF SERVICE: 07/13/20 Discharge Plan Patient Name: CHRISTOPHER ROBERT Facility: [facility]:[place] : 1935 Planned Disposition: Anticipated Discharge Date: Discharge Date: Expected LOS: Initial Reviewer: [email or web address] Initial Review Date: 07/06/2020 Generated: 07/13/20 1:43 pm Comments DCP- Discharge Planning Updated by [id number]: Kathi Stallings on 07/12/20 2:[address] Jasper called me and informed me [facility] is not taking any admissions at this time because they have positive Covid patients there and are unsure when they can admit. I called Guera back for a second choice and explained IP rehab vs SNF and states that she will need to review the list of SNF and rehab and call me in the morning for a second choice. CM will continue to follow and assist with discharge planning/needs. DCP- Discharge Planning Updated by [id number]: Kathi Stallings on 07/12/20 2:[address] CM spoke with Jasper at [facility] and referral faxed. CM will continue to follow and assist with discharge planning/needs. DCP- Discharge Planning Updated by [email or web address]: Kathi Stallings on 07/12/20 1:[address] CM went to room and spoke with daughter, Madyson, and the patient regarding discharge plan. Patient is agreeable to a rehab and Madyson asks me to call Guera for the EDI. I called Guera (daughter and POA) and she would like a referral to [facility]. I gave her the web site to compare nursing homes for a second choice and she will call me back with the second choice. CM will send referral to [facility]. DCP- Discharge Planning Updated by [email or web address]: Leila Ruvalcaba on 07/09/20 3:[address] CM received a call Guera pt daughter (POA) who requests that CM speak with the nurse so that both sisters can be in pt room at once. Guera states that someone from the hospital told her that they would make special accommodations to the visitation policy for out of town visitors. CM states that she does not have the authority to tell the nurses to change visitation rule. States she can call administration and voice her concerns. Guera asks if CM will call administration and recommend that the family should have more visitors. CM states that increased visitors puts each person at an increased risk for COVID. Leila Ruvalcaba DCP- Discharge Planning Updated by [email or web address]: Leila Ruvalcaba on 07/09/20 12:[address] Patient Name: CHRISTOPHER ROBERT Admission Status: ER Accout number: [id number] Admission Date: 07-06-2020 : 1935 Admission Diagnosis:GASTROINTESTINAL HEMORRHAGE, UNSPECIFIED Attending: FABIENNE DAVIDSON Current LOS: 3 Anticipated DC Date: Planned Disposition: Primary Insurance: [facility] MEDICARE SOLUTIONS Discharge Planning Comments: CM received call from pt DTR/JOEL [place] at [phone] about pt condition. CM initiated initial DC assessment. CM educated Guera on the CM role and verbal consent given to complete assessment. CM verified patient's address, phone number, and emergency contact phone numbers. Patient lives at home alone and still drives. Guera states her mother is non compliant with her oxygen. States her mother sent the oxygen back because her mother stated she did not need it anymore. States she has had [facility] and would like to resume it if she can dc home. CM states it is not a safe DC plan to allow the pt to return home alone with out any assistance. CM talked about the availability of rehab or SNF services. Guera states she would like her to move in with her, but she lives out of state. States the daughter that lives close to her mother does not make good choices, and does not want her to move in with her. States she can provide transportation to get her mother to her. Cm states the patient will need ox at DC and will ensure that the patient will have enough e tanks to get her to Guera' house. CM will continue to follow and will assist as needed with dc plans/needs. Associate Professor Of Anthropology: Leila Ruvalcaba DCPIA - Discharge Planning Initial Assessment Updated by [id number]: Leila Ruvalcaba on 07/09/20 12:59 pm * Is the patient Alert and Oriented? No * PCP STUART * Pharmacy [facility] * Preadmission Environment Home Alone * ADLs Independent * List name and contact numbers for known caregivers / representatives who currently or will assist patient after discharge: Guera JOEL [phone] * Community resources currently utilized None * Additional services required to return to the preadmission environment? Yes * Can the patient safely return to the preadmission environment? No * Has this patient been hospitalized within the prior 30 days at any hospital? No External Providers External Provider: [facility] Next Contact Date: Service Request Date: Service Type: Resolution: Reviewer: Comments: Coverage Notice Reviewer: [id number] Lima Stallings Notice Issued Date-Time: 07/12/2020 14:30 Notice Type: Patient Choice Letter Notice Delivered To: Family Member Relationship to Patient: Daughter Studio Model Name: Guera Delivery Method: HAND - Hand Delivered Thao Days: Prior Verbal Notification: Recipient Understood Notice: Yes Recipient Signature: Yes Med Rec Note Co-signed by Attending: Coverage Notice Comment: EDI for [facility] Last DP export: 07/12/20 2:57 p Patient Name: CHRISTOPHER ROBERT Page [id number] at 1244 All edits/amendments must be made on the electronic document DICTATION DATE: 07/13/20 1243 EMPLOYMENT SERVICE SPECIALIST: JEREMY 07/13/20 1243 RPT#: [id number] DC DATE: STATUS: ADM IN [facility] [address] [place] [address] END OF REPORT
--- NOTE | 2020-07-13 12:51 | MORECARE ---
CASE MANAGEMENT DISCHARGE SUMMARY PATIENT: CHRISTOPHER ROBERT UNIT: [id number] ADM DATE: 07/06/20 AGE: 85 : 35 SEX: F ROOM/BED: D.2101 AUTHOR: KERRIE,DOC PHYSICIAN: REFERRING PHYSICIAN: FABIENNE DAVIDSON MD DATE OF SERVICE: 07/13/20 Discharge Plan Patient Name: CHRISTOPHER ROBERT Facility: [facility]:[place] : 1935 Planned Disposition: Anticipated Discharge Date: Discharge Date: Expected LOS: Initial Reviewer: [id number] Initial Review Date: 07/06/2020 Generated: 07/13/20 1:51 pm Comments DCP- Discharge Planning Updated by [id number]: Katt Flanagan on 07/13/20 11:[address] CM received a phone call from Guera JUAREZ) [phone], requesting information be sent to [facility] ([phone]), for her mother. ORTEGA contacted Jazmine, with [facility] to make aware of same. Per Jazmine, she notified Guera that the patient's insurance is [id number] for the facility, but she will send it in order to verify. ORTEGA faxed FS to [facility] @[phone]. Await . DCP- Discharge Planning Updated by [id number]: Kathi Stallings on 07/12/20 2:[address] Jasper called me and informed me [facility] is not taking any admissions at this time because they have positive Covid patients there and are unsure when they can admit. I called Guera back for a second choice and explained IP rehab vs SNF and states that she will need to review the list of SNF and rehab and call me in the morning for a second choice. CM will continue to follow and assist with discharge planning/needs. DCP- Discharge Planning Updated by [email or web address]: Kathi Stallings on 07/12/20 2:[address] CM spoke with Jasper at [facility] and referral faxed. CM will continue to follow and assist with discharge planning/needs. DCP- Discharge Planning Updated by [id number]: Kathi Stallings on 07/12/20 1:[address] CM went to room and spoke with daughter, Madyson, and the patient regarding discharge plan. Patient is agreeable to a rehab and Madyson asks me to call Guera for the EDI. I called Guera (daughter and POA) and she would like a referral to [facility]. I gave her the web site to compare nursing homes for a second choice and she will call me back with the second choice. CM will send referral to [facility]. DCP- Discharge Planning Updated by [id number]: Leila Ruvalcaba on 07/09/20 3:[address] CM received a call Guera pt daughter (POA) who requests that CM speak with the nurse so that both sisters can be in pt room at once. Guera states that someone from the hospital told her that they would make special accommodations to the visitation policy for out of town visitors. CM states that she does not have the authority to tell the nurses to change visitation rule. States she can call administration and voice her concerns. Guera asks if CM will call administration and recommend that the family should have more visitors. CM states that increased visitors puts each person at an increased risk for COVID. Leila Ruvalcaba DCP- Discharge Planning Updated by [id number]: Leila Ruvalcaba on 07/09/20 12:[address] Patient Name: CHRISTOPHER ROBERT Admission Status: ER Accout number: [id number] Admission Date: 07-06-2020 : 1935 Admission Diagnosis:GASTROINTESTINAL HEMORRHAGE, UNSPECIFIED Attending: FABIENNE DAVIDSON Current LOS: 3 Anticipated DC Date: Planned Disposition: Primary Insurance: [facility] MEDICARE SOLUTIONS Discharge Planning Comments: CM received call from pt DTR/JOEL Jarrell at [phone] about pt condition. CM initiated initial DC assessment. CM educated Guera on the CM role and verbal consent given to complete assessment. CM verified patient's address, phone number, and emergency contact phone numbers. Patient lives at home alone and still drives. Guera states her mother is non compliant with her oxygen. States her mother sent the oxygen back because her mother stated she did not need it anymore. States she has had [facility] and would like to resume it if she can dc home. CM states it is not a safe DC plan to allow the pt to return home alone with out any assistance. CM talked about the availability of rehab or SNF services. Guera states she would like her to move in with her, but she lives out of state. States the daughter that lives close to her mother does not make good choices, and does not want her to move in with her. States she can provide transportation to get her mother to her. Cm states the patient will need ox at DC and will ensure that the patient will have enough e tanks to get her to Guera' house. CM will continue to follow and will assist as needed with dc plans/needs. Bpo Specialist: Leila Ruvalcaba DCPIA - Discharge Planning Initial Assessment Updated by [id number]: Leila Ruvalcaba on 07/09/20 12:59 pm * Is the patient Alert and Oriented? No * PCP STUART * Pharmacy [facility] * Preadmission Environment Home Alone * ADLs Independent * List name and contact numbers for known caregivers / representatives who currently or will assist patient after discharge: Gueraluna MALDONADO [phone] * Community resources currently utilized None * Additional services required to return to the preadmission environment? Yes * Can the patient safely return to the preadmission environment? No * Has this patient been hospitalized within the prior 30 days at any hospital? No Coverage Notice Reviewer: [id number] Lima Stallings Notice Issued Date-Time: 07/12/2020 14:30 Notice Type: Patient Choice Letter Notice Delivered To: Family Member Relationship to Patient: Daughter Master Ocean Name: Guera Delivery Method: HAND - Hand Delivered Thao Days: Prior Verbal Notification: Recipient Understood Notice: Yes Recipient Signature: Yes Med Rec Note Co-signed by Attending: Coverage Notice Comment: EDI for [facility] Last DP export: 07/13/20 11:44 a Patient Name: CHRISTOPHER ROBERT Page [id number] at 1251 All edits/amendments must be made on the electronic document DICTATION DATE: 07/13/20 1251 AMPHIBIOUS OPERATIONS OFFICER: JEREMY 07/13/20 1251 RPT#: [id number] DC DATE: STATUS: ADM IN [facility] [address] [place] [address] END OF REPORT
--- NOTE | 2020-07-13 14:00 | NUR ---
PATIENT RESTING WELL WITH EYES CLOSED, RESP EVEN AND UNLABORED, NO DISTRESS.
[2020-07-13 15:00] VITALS: BP 132/66
--- NOTE | 2020-07-13 15:35 | NUR ---
OT NOTE: ASSISTED PT TO EOB WITH MOD/MAX ASSIST; STATIC SITTING ON EOB WITH FAIR BALANCE; SIT TO STAND WITH MIN ASSIST X 2; PT ABLE TO TAKE A FEW STEPS FROM BED TO CHAIR WITH WALKER AND MOD ASSIST X 2.. PT BECOMES VERY WEAK VERY FAST. FATIGUES BEFORE GETTING TO THE CHAIR. ALLOWED PT TO REST AND PT NOTIFIED THERAPIST THAT SHE WAS CURRENTLY URINATING. ALLOWED PT TO FINISH, THE PT WAS STOOD WITH MAX ASSIST WHILE BEING CLEANED (PT WAS ALSO INCONT OF BOWEL)...PT WAS ABLE TO REPOSITION SELF IN CHAIR. PT TOLERATED SITTING UP IN CHAIR APPROX 2 HRS. BEFORE REQUESTING TO GO BACK TO BED. STOOD WITH PT REQUIRING MAX ASSIST WHILE SHE WAS CLEANED AGAIN FROM INCONT EPISODE OF B AND B. PT TOLERATED STANDING BY HOLDING ON TO THERAPIST ARMS FOR APPROX 2 MIN. ATTEMPTED TO HAVE PT USE WALKER TO PIVOT BACK TO BED BUT SHE STATED THAT SHE COULD NOT BECAUSE SHE WAS TOO TIRED. ASSISTED PT BACK TO BED WITH MAX ASSIST. MAX ASSIST TO REPOSITION SELF. MAX ASSIST WITH ALL ADLS EXCLUDING GROOMING AND FEEDING. NABILA HELMS, OTR/L
--- NOTE | 2020-07-13 15:44 | MORECARE ---
CASE MANAGEMENT DISCHARGE SUMMARY PATIENT: CHRISTOPHER ROBERT UNIT: [id number] ADM DATE: 07/06/20 AGE: 85 : 35 SEX: F ROOM/BED: D.2102 AUTHOR: KERRIE,DOC PHYSICIAN: REFERRING PHYSICIAN: FABIENNE DAVIDSON MD DATE OF SERVICE: 07/13/20 Discharge Plan Patient Name: CHRISTOPHER ROBERT Facility: [facility]:[place] : 1935 Planned Disposition: Anticipated Discharge Date: Discharge Date: Expected LOS: Initial Reviewer: [id number] Initial Review Date: 07/06/2020 Generated: 07/13/20 4:43 pm Comments DCP- Discharge Planning Updated by [id number]: Katt Flanagan on 07/13/20 2:[address] Jazmine, with [facility] states the co-pay is $175.00/day for [id number], at the facility. JACIEL contacted Guera JUAREZ) with this information and she states she will do some more research. Guera states she does not want [facility]. Jaciel made Guera aware that [facility] is in network with patient's insurance. No other facility name has been given. JACIEL received a phone call from Guera JUAREZ) [phone], requesting information be sent to [facility] ([phone]), for her mother. JACIEL contacted Jazmine, with [facility] to make aware of same. Per Jazmine, she notified Guera that the patient's insurance is [id number] for the facility, but she will send it in order to verify. JACIEL faxed FS to [facility] @[phone]. Await . DCP- Discharge Planning Updated by [id number]: Kathi Stallings on 07/12/20 2:53 pm ANALISA Hutchinson called me and informed me [facility] is not taking any admissions at this time because they have positive Covid patients there and are unsure when they can admit. I called Guera back for a second choice and explained IP rehab vs SNF and states that she will need to review the list of SNF and rehab and call me in the morning for a second choice. JACIEL will continue to follow and assist with discharge planning/needs. DCP- Discharge Planning Updated by [id number]: Kathi Stallings on 07/12/20 2:[address] CM spoke with Jasper at [facility] and referral faxed. CM will continue to follow and assist with discharge planning/needs. DCP- Discharge Planning Updated by [id number]: Kathi Stallings on 07/12/20 1:[address] CM went to room and spoke with daughter, Madyson, and the patient regarding discharge plan. Patient is agreeable to a rehab and Madyson asks me to call Guera for the EDI. I called Guera (daughter and POA) and she would like a referral to [facility]. I gave her the [facility] and she will call me back with the second choice. CM will send referral to [facility]. DCP- Discharge Planning Updated by [id number]: Leila Ruvalcaba on 07/09/20 3:[address] CM received a call Guera pt daughter (POA) who requests that CM speak with the nurse so that both sisters can be in pt room at once. Guera states that someone from the hospital told her that they would make special accommodations to the visitation policy for out of town visitors. CM states that she does not have the authority to tell the nurses to change visitation rule. States she can call administration and voice her concerns. Guera asks if CM will call administration and recommend that the family should have more visitors. CM states that increased visitors puts each person at an increased risk for COVID. Leila Ruvalcaba DCP- Discharge Planning Updated by [id number]: Leila Ruvalcaba on 07/09/20 12:[address] Patient Name: CHRISTOPHER ROBERT Admission Status: ER Accout number: [id number] Admission Date: 07-06-2020 : 1935 Admission Diagnosis:GASTROINTESTINAL HEMORRHAGE, UNSPECIFIED Attending: FABIENNE DAVIDSON Current LOS: 3 Anticipated DC Date: Planned Disposition: Primary Insurance: [facility] MEDICARE SOLUTIONS Discharge Planning Comments: CM received call from pt DTR/JOEL Jarrell at [phone] about pt condition. CM initiated initial DC assessment. CM educated Guera on the CM role and verbal consent given to complete assessment. CM verified patient's address, phone number, and emergency contact phone numbers. Patient lives at home alone and still drives. Guera states her mother is non compliant with her oxygen. States her mother sent the oxygen back because her mother stated she did not need it anymore. States she has had [facility] and would like to resume it if she can dc home. CM states it is not a safe DC plan to allow the pt to return home alone with out any assistance. CM talked about the availability of rehab or SNF services. Guera states she would like her to move in with her, but she lives out of state. States the daughter that lives close to her mother does not make good choices, and does not want her to move in with her. States she can provide transportation to get her mother to her. Cm states the patient will need ox at DC and will ensure that the patient will have enough e tanks to get her to Guera' house. CM will continue to follow and will assist as needed with dc plans/needs. Advanced Manufacturing Engineer: Leila Ruvalcaba DCPIA - Discharge Planning Initial Assessment Updated by [id number]: Leila Ruvalcaba on 07/09/20 12:59 pm * Is the patient Alert and Oriented? No * PCP STUART * Pharmacy [facility] * Preadmission Environment Home Alone * ADLs Independent * List name and contact numbers for known caregivers / representatives who currently or will assist patient after discharge: Guera JOEL [phone] * Community resources currently utilized None * Additional services required to return to the preadmission environment? Yes * Can the patient safely return to the preadmission environment? No * Has this patient been hospitalized within the prior 30 days at any hospital? No Coverage Notice Reviewer: [id number] - Kathi Stallings Notice Issued Date-Time: 07/12/2020 14:30 Notice Type: Patient Choice Letter Notice Delivered To: Family Member Relationship to Patient: Daughter Demolition Worker Name: Guera Delivery Method: HAND - Hand Delivered Thao Days: Prior Verbal Notification: Recipient Understood Notice: Yes Recipient Signature: Yes Med Rec Note Co-signed by Attending: Coverage Notice Comment: [facility] for [place] Reviewer: [id number] - Katt Flanagan Notice Issued Date-Time: 07/13/2020 15:35 Notice Type: Patient Choice Letter Notice Delivered To: Family Member Relationship to Patient: Power of Multiple Drum Sander Demolition Worker Name: Guera Dorsey Delivery Method: PHONE - Phone Thao Days: Prior Verbal Notification: Recipient Understood Notice: Yes Recipient Signature: Yes Med Rec Note Co-signed by Attending: Coverage Notice Comment: [facility] DP export: 07/13/20 11:51 a Patient Name: CHRISTOPHER ROBERT Page [id number] at 1544 All edits/amendments must be made on the electronic document DICTATION DATE: 07/13/20 154 AIRLINE RESERVATIONIST: JEREMY 07/13/20 154 RPT#: [id number] DC DATE: STATUS: ADM IN [facility] [address] [place] [address] END OF REPORT
--- NOTE | 2020-07-13 17:46 | NUR ---
OT NOTE: PT COMPLETED SUPINE TO SIT WITH MOD A. PT COMPLETED EOB SITTING WITH MIN A. PT REQUIRED MOD/MAX A FOR SIT TO STAND. PT REQUIRED MAX A FOR LB HYGIENE TASKS. DAUGHTER STATED THAT PT IS ABLE TO SELF FEED WHICH PT WAS UNABLE TO DO WHEN FIRST ADMITTED. PT REQUIRED MAX A WITH DYNAMIC TASKS SECONDARY TO DECREASED ACTIVITY TOLERANCE. [phone] THANK YOU,AD HENDRICKS
[2020-07-14] VITALS: BP 99/46
[2020-07-14 04:00] VITALS: BP 120/57
[2020-07-14 06:09] LABS: BASOPHILS 0 % (0-2); EOSINOPHILS 0.6 % (0-7); HEMATOCRIT 35.9 % (36.0-48.0); IMMATURE GRANULOCYTES 0.9 % (0-5); LYMPHOCYTES 5.8 % (15-50); MCH 28.1 pg (26.0-34.0); MCHC 30.6 g/dL (31.0-37.0); MCV 91.6 fL (80.0-100.0); MONOCYTES 4.3 % (2-11); NEUTROPHILS 88.4 % (40-80); PLATELET COUNT 215 10x3/uL (130-400); RBC 3.92 10x6/uL (4.00-5.40); WBC 16.2 10x3/uL (4.8-10.8)
[2020-07-14 06:40] LABS: CALCIUM 8.1 mg/dL (8.5-10.1); CREATININE - SERUM 0.8 mg/dL (0.6-1.3)
[2020-07-14 07:24] LABS: ANION GAP 4.3 mmol/L (8-16)
[2020-07-14 07:25] LABS: POTASSIUM - SERUM 2.5 mmol/L (3.5-5.1)
[2020-07-14 07:26] LABS: CARBON DIOXIDE 40.2 mmol/L (21.0-32.0)
[2020-07-14 09:00] VITALS: BP 115/62
[2020-07-14 12:00] VITALS: BP 129/66
--- NOTE | 2020-07-14 14:34 | NUR ---
OT NOTE: PT COMPLETED SIT STAND WITH MIN A. PT COMPLETED BED TO CHAIR TSF WITH MIN A. PT REQUIRED SET UP FOR FACE HYGIENE. PT EXIBITED INCREASED FUNCTIONAL INDEPENDENCE. [phone] THANK YOU,AD HENDRICKS
[2020-07-14 16:06] LABS: MAGNESIUM - SERUM 1.8 mg/dL (1.8-2.4)
[2020-07-14 16:08] LABS: POTASSIUM - SERUM 3.3 mmol/L (3.5-5.1)
--- NOTE | 2020-07-14 17:24 | NUR ---
OT NOTE: PT FATIGUED IN PM. PREVIOUSLY UP IN CHAIR IN AM. MOD ASSIST WITH BED MOB. ATTEMPTED UE/LE EXS BUT PT REPORTED THAT SHE WAS TIRED. ATTEMPTED SIMPLE GROOMING TASKS BUT INCREASED ASSIST REQUIRED DUE TO FATIGUE. NABILA HELMS, OTR/L
[2020-07-14 20:00] VITALS: BP 105/49
--- NOTE | 2020-07-15 03:07 | NUR ---
I have reviewed this patient and I concur with the Shift Assessment completed by the Licensed Practical Nurse today this shift.
[2020-07-15 04:00] VITALS: BP 101/45
[2020-07-15 06:06] LABS: BASOPHILS 0.1 % (0-2); EOSINOPHILS 1.7 % (0-7); HEMATOCRIT 35.2 % (36.0-48.0); HEMOGLOBIN 10.5 g/dL (12-16); IMMATURE GRANULOCYTES 0.5 % (0-5); LYMPHOCYTES 6.6 % (15-50); MCH 27.6 pg (26.0-34.0); MCHC 29.8 g/dL (31.0-37.0); MCV 92.4 fL (80.0-100.0); MEAN PLATELET VOLUME 10.7 fL (7.4-10.4); MONOCYTES 4.5 % (2-11); NEUTROPHILS 86.6 % (40-80); PLATELET COUNT 226 10x3/uL (130-400); RBC 3.81 10x6/uL (4.00-5.40); RDW 16.3 % (11.5-14.5); WBC 13.2 10x3/uL (4.8-10.8)
[2020-07-15 06:25] LABS: CALC OSMOLALITY 286 mosm/kg (275-300); CALCIUM 8.1 mg/dL (8.5-10.1); CHLORIDE - SERUM 105 mmol/L (98-107); CREATININE - SERUM 0.7 mg/dL (0.6-1.3); GLUCOSE 89 mg/dL (74-106); SODIUM 144 mmol/L (136-145); UREA NITROGEN 14 mg/dL (7-18); eGFR NON AFRICAN AMERICAN 84 mL/min (90-120)
[2020-07-15 06:42] LABS: POTASSIUM - SERUM 4.1 mmol/L (3.5-5.1)
[2020-07-15 06:44] LABS: CARBON DIOXIDE 41.2 mmol/L (21.0-32.0)
[2020-07-15 08:10] VITALS: BP 109/55
--- NOTE | 2020-07-15 10:31 | NUR ---
Nutrition Follow-up: Eating well. ST following; noted change to [facility] soft diet. Diet: Gluten Free, Mec Soft PO intake: 50-75% Wt: 93# (07/07) Last BM: 07/14 per chart Labs noted: Ca 8.1, K+ 4.1 Meds noted: HCTZ, Protonix, D5 1/2NS @ 50, electrolyte protocol -Encourage PO intake and honor food preferences within diet restrictions. -Need new wt if possible. -RD following.
[2020-07-15 11:44] VITALS: BP 109/55; BP 113/48
--- NOTE | 2020-07-15 12:54 | MORECARE ---
CASE MANAGEMENT DISCHARGE SUMMARY PATIENT: CHRISTOPHER ROBERT UNIT: [id number] ADM DATE: 07/06/20 AGE: 85 : 35 SEX: F ROOM/BED: D.2101 AUTHOR: KERRIE,DOC PHYSICIAN: REFERRING PHYSICIAN: FABIENNE DAVIDSON MD DATE OF SERVICE: 07/15/20 Discharge Plan Patient Name: CHRISTOPHER ROBERT Facility: [facility]:[place] : 1935 Planned Disposition: Anticipated Discharge Date: Discharge Date: Expected LOS: Initial Reviewer: [id number] Initial Review Date: 07/06/2020 Generated: 07/15/20 1:54 pm Comments DCP- Discharge Planning Updated by [id number]: Kathi Stallings on 07/15/20 11:[address] I called Guera to tell her I needed to send her referral to a skilled facility. I informed her it took several days for a PA once the facility submits for it. I spoke at length with Guera, and she still has not come to a decision between [facility] and [facility]. States she will call me this afternoon. DCP- Discharge Planning Updated by [id number]: Katt Flanagan on 07/13/20 2:[address] Jazmine, with [facility] states the co-pay is $175.00/day for [id number], at the facility. JACIEL contacted Guera JUAREZ) with this information and she states she will do some more research. Guera states she does not want [facility]. Jaciel made Guera aware that [facility] is in network with patient's insurance. No other facility name has been given. JACIEL received a phone call from [facility] [phone], requesting information be sent to [facility] ([phone]), for her mother. JACIEL contacted Jazmine, with [facility] to make aware of same. Per Jazmine, she notified Guera that the patient's insurance is [id number] for the facility, but she will send it in order to verify. JACIEL faxed FS to [facility] @[phone]. Itzel . DCP- Discharge Planning Updated by [id number]: Kathi Stallings on 07/12/20 2:[address] Jasper called me and informed me [facility] is not taking any admissions at this time because they have positive Covid patients there and are unsure when they can admit. I called Guera back for a second choice and explained IP rehab vs SNF and states that she will need to review the list of SNF and rehab and call me in the morning for a second choice. CM will continue to follow and assist with discharge planning/needs. DCP- Discharge Planning Updated by [id number]: Kathi Stallings on 07/12/20 2:[address] CM spoke with Jasper at [facility] and referral faxed. CM will continue to follow and assist with discharge planning/needs. DCP- Discharge Planning Updated by [id number]: Kathi Stallings on 07/12/20 1:[address] CM went to room and spoke with daughter, Madyson, and the patient regarding discharge plan. Patient is agreeable to a rehab and Madyson asks me to call Guera for the EDI. I called Guera (daughter and POA) and she would like a referral to [facility]. I gave her the web site to compare nursing homes for a second choice and she will call me back with the second choice. CM will send referral to [facility]. DCP- Discharge Planning Updated by [id number]: Leila Ruvalcaba on 07/09/20 3:[address] CM received a call Guera pt daughter (POA) who requests that CM speak with the nurse so that both sisters can be in pt room at once. Guera states that someone from the hospital told her that they would make special accommodations to the visitation policy for out of town visitors. JACIEL states that she does not have the authority to tell the nurses to change visitation rule. States she can call administration and voice her concerns. Guera asks if CM will call administration and recommend that the family should have more visitors. JACIEL states that increased visitors puts each person at an increased risk for COVID. Leila Ruvalcaba DCP- Discharge Planning Updated by [id number]: Leila Ruvalcaba on 07/09/20 12:[address] Patient Name: CHRISTOPHER ROBERT Admission Status: ER Accout number: [id number] Admission Date: 07-06-2020 : 1935 Admission Diagnosis:GASTROINTESTINAL HEMORRHAGE, UNSPECIFIED Attending: FABIENNE DAVIDSON Current LOS: 3 Anticipated DC Date: Planned Disposition: Primary Insurance: [facility] MEDICARE SOLUTIONS Discharge Planning Comments: CM received call from pt DTR/JOEL [place] at [phone] about pt condition. CM initiated initial DC assessment. CM educated Guera on the CM role and verbal consent given to complete assessment. CM verified patient's address, phone number, and emergency contact phone numbers. Patient lives at home alone and still drives. Guera states her mother is non compliant with her oxygen. States her mother sent the oxygen back because her mother stated she did not need it anymore. States she has had [facility] and would like to resume it if she can dc home. CM states it is not a safe DC plan to allow the pt to return home alone with out any assistance. CM talked about the availability of rehab or SNF services. Guera states she would like her to move in with her, but she lives out of state. States the daughter that lives close to her mother does not make good choices, and does not want her to move in with her. States she can provide transportation to get her mother to her. Cm states the patient will need ox at DC and will ensure that the patient will have enough e tanks to get her to Guera' house. CM will continue to follow and will assist as needed with dc plans/needs. Car Washer: Leila Ruvalcaba DCPIA - Discharge Planning Initial Assessment Updated by [id number]: Leila Ruvalcaba on 07/09/20 12:59 pm * Is the patient Alert and Oriented? No * PCP STUART * Pharmacy [facility] * Preadmission Environment Home Alone * ADLs Independent * List name and contact numbers for known caregivers / representatives who currently or will assist patient after discharge: Guera MALDONADO [phone] * Community resources currently utilized None * Additional services required to return to the preadmission environment? Yes * Can the patient safely return to the preadmission environment? No * Has this patient been hospitalized within the prior 30 days at any hospital? No Coverage Notice Reviewer: [id number] Lima Stallings Notice Issued Date-Time: 07/12/2020 14:30 Notice Type: Patient Choice Letter Notice Delivered To: Family Member Relationship to Patient: Daughter Level Vial Inspector Name: Guera Delivery Method: HAND - Hand Delivered Thao Days: Prior Verbal Notification: Recipient Understood Notice: Yes Recipient Signature: Yes Med Rec Note Co-signed by Attending: Coverage Notice Comment: [facility] Reviewer: [id number] Lima Flanagan Notice Issued Date-Time: 07/13/2020 15:35 Notice Type: Patient Choice Letter Notice Delivered To: Family Member Relationship to Patient: Power of Assistant Chief Of Police Level Vial Inspector Name: Guera Dorsey Delivery Method: PHONE - Phone Thao Days: Prior Verbal Notification: Recipient Understood Notice: Yes Recipient Signature: Yes Med Rec Note Co-signed by Attending: Coverage Notice Comment: [facility] DP export: 07/13/20 2:44 p Patient Name: CHRISTOPHER ROBERT Page 65521 at 1254 All edits/amendments must be made on the electronic document DICTATION DATE: 07/15/20 1254 CRACK OFF PERSON: JEREMY 07/15/20 1254 RPT#: [id number] DC DATE: STATUS: ADM IN [facility] [address] [place] [address] END OF REPORT
--- NOTE | 2020-07-15 14:12 | MORECARE ---
CASE MANAGEMENT DISCHARGE SUMMARY PATIENT: CHRISTOPHER ROBERT UNIT: [id number] ADM DATE: 07/06/20 AGE: 85 : 35 SEX: F ROOM/BED: D.2103 AUTHOR: KERRIE,DOC PHYSICIAN: REFERRING PHYSICIAN: FABIENNE DAVIDSON MD DATE OF SERVICE: 07/15/20 Discharge Plan Patient Name: CHRISTOPHER ROBERT Facility: [facility]:[place] : 1935 Planned Disposition: Anticipated Discharge Date: Discharge Date: Expected LOS: Initial Reviewer: [id number] Initial Review Date: 07/06/2020 Generated: 07/15/20 3:12 pm Comments DCP- Discharge Planning Updated by [id number]: Kathi Stallings on 07/15/20 11:[address] I called Guera to tell her I needed to send her referral to a skilled facility. I informed her it took several days for a PA once the facility submits for it. I spoke at length with Guera, and she still has not come to a decision between [facility] and [facility]. States she will call me this afternoon. DCP- Discharge Planning Updated by [id number]: Katt Flanagan on 07/13/20 2:[address] Jazmine, with [employer] states the co-pay is $175.00/day for [id number], at the facility. JACIEL contacted Guera JUAREZ) with this information and she states she will do some more research. Guera states she does not want [facility]. Jaciel made Guera aware that [facility] is in network with patient's insurance. No other facility name has been given. JACIEL received a phone call from [facility] [phone], requesting information be sent to [facility] ([phone]), for her mother. JACIEL contacted Jazmine, with [employer] to make aware of same. Per Jazmine, she notified Guera that the patient's insurance is [id number] for the facility, but she will send it in order to verify. JACIEL faxed FS to [employer] @[phone]. Itzel . DCP- Discharge Planning Updated by [id number]: Kathi Stallings on 07/12/20 2:[address] Jasper called me and informed me [facility] is not taking any admissions at this time because they have positive Covid patients there and are unsure when they can admit. I called Guera back for a second choice and explained IP rehab vs SNF and states that she will need to review the list of SNF and rehab and call me in the morning for a second choice. CM will continue to follow and assist with discharge planning/needs. DCP- Discharge Planning Updated by [id number]: Kathi Stallings on 07/12/20 2:[address] CM spoke with Jasper at [facility] and referral faxed. CM will continue to follow and assist with discharge planning/needs. DCP- Discharge Planning Updated by [id number]: Kathi Stallings on 07/12/20 1:[address] CM went to room and spoke with daughter, Madyson, and the patient regarding discharge plan. Patient is agreeable to a rehab and Madyson asks me to call Guera for the EDI. I called Guera (daughter and POA) and she would like a referral to [facility]. I gave her the web site to compare nursing homes for a second choice and she will call me back with the second choice. CM will send referral to [facility]. DCP- Discharge Planning Updated by [id number]: Leila Ruvalcaba on 07/09/20 3:[address] CM received a call Guera pt daughter (POA) who requests that CM speak with the nurse so that both sisters can be in pt room at once. Guera states that someone from the hospital told her that they would make special accommodations to the visitation policy for out of town visitors. JACIEL states that she does not have the authority to tell the nurses to change visitation rule. States she can call administration and voice her concerns. Guera asks if CM will call administration and recommend that the family should have more visitors. JACIEL states that increased visitors puts each person at an increased risk for COVID. Leila Ruvalcaba DCP- Discharge Planning Updated by [id number]: Leila Ruvalcaba on 07/09/20 12:[address] Patient Name: CHRISTOPHER ROBERT Admission Status: ER Accout number: [id number] Admission Date: 07-06-2020 : 1935 Admission Diagnosis:GASTROINTESTINAL HEMORRHAGE, UNSPECIFIED Attending: FABIENNE DAVIDSON Current LOS: 3 Anticipated DC Date: Planned Disposition: Primary Insurance: [facility] MEDICARE SOLUTIONS Discharge Planning Comments: CM received call from pt DTR/JOEL [place] at [phone] about pt condition. CM initiated initial DC assessment. CM educated Guera on the CM role and verbal consent given to complete assessment. CM verified patient's address, phone number, and emergency contact phone numbers. Patient lives at home alone and still drives. Guera states her mother is non compliant with her oxygen. States her mother sent the oxygen back because her mother stated she did not need it anymore. States she has had [facility] and would like to resume it if she can dc home. CM states it is not a safe DC plan to allow the pt to return home alone with out any assistance. CM talked about the availability of rehab or SNF services. Guera states she would like her to move in with her, but she lives out of state. States the daughter that lives close to her mother does not make good choices, and does not want her to move in with her. States she can provide transportation to get her mother to her. Cm states the patient will need ox at DC and will ensure that the patient will have enough e tanks to get her to Guera' house. CM will continue to follow and will assist as needed with dc plans/needs. Gum Remover: Leila Ruvalcaba DCPIA - Discharge Planning Initial Assessment Updated by [id number]: Leila Ruvalcaba on 07/09/20 12:59 pm * Is the patient Alert and Oriented? No * PCP STUART * Pharmacy [facility] * Preadmission Environment Home Alone * ADLs Independent * List name and contact numbers for known caregivers / representatives who currently or will assist patient after discharge: Guera MALDONADO [phone] * Community resources currently utilized None * Additional services required to return to the preadmission environment? Yes * Can the patient safely return to the preadmission environment? No * Has this patient been hospitalized within the prior 30 days at any hospital? No Coverage Notice Reviewer: [id number] Lima Stallings Notice Issued Date-Time: 07/12/2020 14:30 Notice Type: Patient Choice Letter Notice Delivered To: Family Member Relationship to Patient: Daughter Youth Ministry Director Name: Guera Delivery Method: HAND - Hand Delivered Thao Days: Prior Verbal Notification: Recipient Understood Notice: Yes Recipient Signature: Yes Med Rec Note Co-signed by Attending: Coverage Notice Comment: EDI Ontiveros Reviewer: [id number] Lima Flanagan Notice Issued Date-Time: 07/13/2020 15:35 Notice Type: Patient Choice Letter Notice Delivered To: Family Member Relationship to Patient: Power of Advanced Practice Professional Youth Ministry Director Name: Guera Dorsey Delivery Method: PHONE - Phone Thao Days: Prior Verbal Notification: Recipient Understood Notice: Yes Recipient Signature: Yes Med Rec Note Co-signed by Attending: Coverage Notice Comment: [facility] STEWART export: 07/15/20 11:54 a Patient Name: CHRISTOPHER ROBERT Page [id number] at 1412 All edits/amendments must be made on the electronic document DICTATION DATE: 07/15/20 141 DEPARTMENT SECRETARY: JEREMY 07/15/20 141 RPT#: [id number] DC DATE: STATUS: ADM IN [facility] [address] [place] [address] END OF REPORT
[2020-07-15 15:58] VITALS: BP 112/53
[2020-07-15 20:21] VITALS: BP 115/58
--- NOTE | 2020-07-15 21:49 | NUR ---
OT NOTE: PT REQUIRED DECREASED PHYSICAL ASSISTANCE WITH BED MOB TASKS. PT COMPLETED SUPINE TO SIT WITH MIN A. PT COMPLETED SIT TO STAND WITH MIN A. PT COMPLETED ADL MOB WITH HH A. PT REQUIRED TOTAL A WITH LB HYGIENE AFTER BM. PT REQUIRED TOTAL A FOR DOFF SOCKS. PT REQUIRED MOD A FOR DOFF/SHILPA GOWN. DAUGHTER STATED PT IS TIRED AND IS UNABLE TO SIT UP IN CHAIR AT THIS TIME. PT RETURNED TO BED. [phone] THANK YOU,AD HENDRICKS
[2020-07-16 04:42] VITALS: BP 139/84
[2020-07-16 05:44] LABS: BASOPHILS 0 % (0-2); EOSINOPHILS 0.8 % (0-7); HEMOGLOBIN 10.9 g/dL (12-16); IMMATURE GRANULOCYTES 0.5 % (0-5); LYMPHOCYTES 7.3 % (15-50); MCH 28.5 pg (26.0-34.0); MCHC 30.3 g/dL (31.0-37.0); MEAN PLATELET VOLUME 11.1 fL (7.4-10.4); MONOCYTES 4.3 % (2-11); NEUTROPHILS 87.1 % (40-80); PLATELET COUNT 263 10x3/uL (130-400); RBC 3.83 10x6/uL (4.00-5.40); RDW 16.3 % (11.5-14.5); WBC 13.2 10x3/uL (4.8-10.8)
[2020-07-16 06:04] LABS: CALC OSMOLALITY 288 mosm/kg (275-300); CALCIUM 8.5 mg/dL (8.5-10.1); CHLORIDE - SERUM 103 mmol/L (98-107); CREATININE - SERUM 0.7 mg/dL (0.6-1.3); GLUCOSE 73 mg/dL (74-106); POTASSIUM - SERUM 4.3 mmol/L (3.5-5.1); SODIUM 145 mmol/L (136-145); UREA NITROGEN 14 mg/dL (7-18); eGFR NON AFRICAN AMERICAN 84 mL/min (90-120)
[2020-07-16 07:13] LABS: CARBON DIOXIDE 42.7 mmol/L (21.0-32.0)
--- NOTE | 2020-07-16 10:23 | MORECARE ---
CASE MANAGEMENT DISCHARGE SUMMARY PATIENT: CHRISTOPHER ROBERT UNIT: [id number] ADM DATE: 07/06/20 AGE: 85 : 35 SEX: F ROOM/BED: D.2108 AUTHOR: KERRIE,DOC PHYSICIAN: REFERRING PHYSICIAN: FABIENNE DAVIDSON MD DATE OF SERVICE: 07/16/20 Discharge Plan Patient Name: CHRISTOPHER ROBERT Facility: [facility]:[place] : 1935 Planned Disposition: Anticipated Discharge Date: Discharge Date: Expected LOS: Initial Reviewer: [id number] Initial Review Date: 07/06/2020 Generated: 07/16/20 11:22 am Comments DCP- Discharge Planning Updated by [email or web address]: Kathi Stallings on 07/15/20 11:[address] I called Guera to tell her I needed to send her referral to a skilled facility. I informed her it took several days for a PA once the facility submits for it. I spoke at length with Guera, and she still has not come to a decision between [facility] and [facility]. States she will call me this afternoon. DCP- Discharge Planning Updated by [id number]: Katt Flanagan on 07/13/20 2:[address] Jazmine, with [employer] states the co-pay is $175.00/day for [id number], at the facility. JACIEL contacted Guera JUAREZ) with this information and she states she will do some more research. Guera states she does not want [facility]. Jaciel made Guera aware that [facility] is in network with patient's insurance. No other facility name has been given. JACIEL received a phone call [facility] [phone], requesting information be sent to [facility] ([phone]), for her mother. JACIEL contacted Jazmine, with [employer] to make aware of same. Per Jazmine, she notified Guera that the patient's insurance is [id number] for the facility, but she will send it in order to verify. JACIEL faxed FS to [employer] @[phone]. Itzel . DCP- Discharge Planning Updated by [id number]: Kathi Stallings on 07/12/20 2:[address] Jasper called me and informed me [facility] ([place], [place]) is not taking any admissions at this time because they have positive Covid patients there and are unsure when they can admit. I called Guera back for a second choice and explained IP rehab vs SNF and states that she will need to review the list of SNF and rehab and call me in the morning for a second choice. CM will continue to follow and assist with discharge planning/needs. DCP- Discharge Planning Updated by [id number]: Kathi Stallings on 07/12/20 2:[address] CM spoke with Jasper at [facility] ([place], [place]) and referral faxed. CM will continue to follow and assist with discharge planning/needs. DCP- Discharge Planning Updated by [id number]: Kathi Stallings on 07/12/20 1:[address] CM went to room and spoke with daughter, Madyson, and the patient regarding discharge plan. Patient is agreeable to a rehab and Madyson asks me to call Guera for the EDI. I called Guera (daughter and POA) and she would like a referral to [facility] ([place], [place]). I gave her the web site to compare nursing homes for a second choice and she will call me back with the second choice. CM will send referral to [facility] ([place], [place]). DCP- Discharge Planning Updated by [email or web address]: Leila Ruvalcaba on 07/09/20 3:[address] CM received a call Guera pt daughter (POA) who requests that CM speak with the nurse so that both sisters can be in pt room at once. Guera states that someone from the hospital told her that they would make special accommodations to the visitation policy for out of town visitors. JACIEL states that she does not have the authority to tell the nurses to change visitation rule. States she can call administration and voice her concerns. Guera asks if CM will call administration and recommend that the family should have more visitors. JACIEL states that increased visitors puts each person at an increased risk for COVID. Leila Ruvalcaba DCP- Discharge Planning Updated by [id number]: Leila Ruvalcaba on 07/09/20 12:[address] Patient Name: CHRISTOPHER ROBERT Admission Status: ER Accout number: [id number] Admission Date: 07-06-2020 : 1935 Admission Diagnosis:GASTROINTESTINAL HEMORRHAGE, UNSPECIFIED Attending: FABIENNE DAVIDSON Current LOS: 3 Anticipated DC Date: Planned Disposition: Primary Insurance: [facility] MEDICARE SOLUTIONS Discharge Planning Comments: CM received call from pt DTR/JOEL Mosinee at [phone] about pt condition. CM initiated initial DC assessment. CM educated Guera on the CM role and verbal consent given to complete assessment. CM verified patient's address, phone number, and emergency contact phone numbers. Patient lives at home alone and still drives. Guera states her mother is non compliant with her oxygen. States her mother sent the oxygen back because her mother stated she did not need it anymore. States she has had [facility] and would like to resume it if she can dc home. CM states it is not a safe DC plan to allow the pt to return home alone with out any assistance. CM talked about the availability of rehab or SNF services. Guera states she would like her to move in with her, but she lives out of state. States the daughter that lives close to her mother does not make good choices, and does not want her to move in with her. States she can provide transportation to get her mother to her. Cm states the patient will need ox at DC and will ensure that the patient will have enough e tanks to get her to Guera' house. CM will continue to follow and will assist as needed with dc plans/needs. Physical Security Manager: Leila Ruvalcaba DCPIA - Discharge Planning Initial Assessment Updated by [id number]: Leila Ruvalcaba on 07/09/20 12:59 pm * Is the patient Alert and Oriented? No * PCP STUART * Pharmacy [facility] * Preadmission Environment Home Alone * ADLs Independent * List name and contact numbers for known caregivers / representatives who currently or will assist patient after discharge: Guera MALDONADO [phone] * Community resources currently utilized None * Additional services required to return to the preadmission environment? Yes * Can the patient safely return to the preadmission environment? No * Has this patient been hospitalized within the prior 30 days at any hospital? No External Providers External Provider: [facility] Next Contact Date: Service Request Date: Service Type: Resolution: Reviewer: Comments: Coverage Notice Reviewer: [id number] Lima Stallings Notice Issued Date-Time: 07/12/2020 14:30 Notice Type: Patient Choice Letter Notice Delivered To: Family Member Relationship to Patient: Daughter Senior It Project Manager Name: Guera Delivery Method: HAND - Hand Delivered Thao Days: Prior Verbal Notification: Recipient Understood Notice: Yes Recipient Signature: Yes Med Rec Note Co-signed by Attending: Coverage Notice Comment: [facility] antonia Arandastephanie Ontiveros Reviewer: [id number] Lima Flanagan Notice Issued Date-Time: 07/13/2020 15:35 Notice Type: Patient Choice Letter Notice Delivered To: Family Member Relationship to Patient: Power of Shape Hand Senior It Project Manager Name: Guera Dorsey Delivery Method: PHONE - Phone Thao Days: Prior Verbal Notification: Recipient Understood Notice: Yes Recipient Signature: Yes Med Rec Note Co-signed by Attending: Coverage Notice Comment: [facility] STEWART export: 07/15/20 1:12 p Patient Name: CHRISTOPHER ROBERT Page [id number] at 1023 All edits/amendments must be made on the electronic document DICTATION DATE: 07/16/[address] REPAIRER: JEREMY 07/16/20 1023 RPT#: [id number] DC DATE: STATUS: ADM IN [facility] [address] [place] [address] END OF REPORT
--- NOTE | 2020-07-16 10:37 | MORECARE ---
CASE MANAGEMENT DISCHARGE SUMMARY PATIENT: CHRISTOPHER ROBERT UNIT: [id number] ADM DATE: 07/06/20 AGE: 85 : 35 SEX: F ROOM/BED: D.210 AUTHOR: KERRIE,DOC PHYSICIAN: REFERRING PHYSICIAN: FABIENNE DAVIDSON MD DATE OF SERVICE: 07/16/20 Discharge Plan Patient Name: CHRISTOPHER ROBERT Facility: [facility]:[place] : 1935 Planned Disposition: Anticipated Discharge Date: Discharge Date: Expected LOS: Initial Reviewer: [id number] Initial Review Date: 07/06/2020 Generated: 07/16/20 11:37 am Comments DCP- Discharge Planning Updated by [email or web address]: Katt Flanagan on 07/16/20 9:[address] eLila with JACIEL was contacted by patient's daughter, Guera, with a request for information to be sent to [facility]. JACIEL contacted Jhoana with [facility] ([phone]), obtained correct fax number ([phone]) and faxed required information for admission. DCP- Discharge Planning Updated by [email or web address]: Kathi Stallings on 07/15/20 11:[address] I called Guera to tell her I needed to send her referral to a skilled facility. I informed her it took several days for a PA once the facility submits for it. I spoke at length with Guera, and she still has not come to a decision between [facility] and [facility]. States she will call me this afternoon. DCP- Discharge Planning Updated by [id number]: Katt Flanagan on 07/13/20 2:41 pm ANALISA Lucero, with [employer] states the co-pay is $175.00/day for [id number], at the facility. JACIEL contacted Guera JUAREZ) with this information and she states she will do some more research. Guera states she does not want [facility]. Jaciel made Guera aware that [facility] is in network with patient's insurance. No other facility name has been given. JACIEL received a phone call from Guera JUAREZ) [phone], requesting information be sent to [facility] ([phone]), for her mother. CM contacted Jazmine, with [facility] to make aware of same. Per Jazmine, she notified Guera that the patient's insurance is [id number] for the facility, but she will send it in order to verify. JACIEL faxed FS to [facility] @[phone]. Await CB. DCP- Discharge Planning Updated by [id number]: Kahti Stallings on 07/12/20 2:[address] Jasper called me and informed me [facility] is not taking any admissions at this time because they have positive Covid patients there and are unsure when they can admit. I called Guera back for a second choice and explained IP rehab vs SNF and states that she will need to review the list of SNF and rehab and call me in the morning for a second choice. CM will continue to follow and assist with discharge planning/needs. DCP- Discharge Planning Updated by [id number]: Kathi Stallings on 07/12/20 2:[address] JACIEL spoke with Jasper at [facility] and referral faxed. CM will continue to follow and assist with discharge planning/needs. DCP- Discharge Planning Updated by [id number]: Kathi Stallings on 07/12/20 1:[address] CM went to room and spoke with daughter, Madyson, and the patient regarding discharge plan. Patient is agreeable to a rehab and Madyson asks me to call Guera for the EDI. I called Guera (daughter and POA) and she would like a referral to [facility]. I gave her the web site to compare nursing homes for a second choice and she will call me back with the second choice. CM will send referral to [facility]. DCP- Discharge Planning Updated by [email or web address]: Leila Ruvalcaba on 07/09/20 3:[address] CM received a call Guera pt daughter (POA) who requests that CM speak with the nurse so that both sisters can be in pt room at once. Guera states that someone from the hospital told her that they would make special accommodations to the visitation policy for out of town visitors. JACIEL states that she does not have the authority to tell the nurses to change visitation rule. States she can call administration and voice her concerns. Guera asks if CM will call administration and recommend that the family should have more visitors. CM states that increased visitors puts each person at an increased risk for COVID. Leila Ruvalcaba DCP- Discharge Planning Updated by [id number]: Leila Ruvalcaba on 07/09/20 12:[address] Patient Name: CHRISTOPHER ROBERT Admission Status: ER Accout number: [id number] Admission Date: 07-06-2020 : 1935 Admission Diagnosis:GASTROINTESTINAL HEMORRHAGE, UNSPECIFIED Attending: FABIENNE DAVIDSON Current LOS: 3 Anticipated DC Date: Planned Disposition: Primary Insurance: [facility] MEDICARE SOLUTIONS Discharge Planning Comments: CM received call from pt DTR/JOEL Jarrell at [phone] about pt condition. CM initiated initial DC assessment. CM educated Guera on the CM role and verbal consent given to complete assessment. CM verified patient's address, phone number, and emergency contact phone numbers. Patient lives at home alone and still drives. Guera states her mother is non compliant with her oxygen. States her mother sent the oxygen back because her mother stated she did not need it anymore. States she has had [facility] and would like to resume it if she can dc home. CM states it is not a safe DC plan to allow the pt to return home alone with out any assistance. CM talked about the availability of rehab or SNF services. Guera states she would like her to move in with her, but she lives out of state. States the daughter that lives close to her mother does not make good choices, and does not want her to move in with her. States she can provide transportation to get her mother to her. Cm states the patient will need ox at DC and will ensure that the patient will have enough e tanks to get her to Guera' house. CM will continue to follow and will assist as needed with dc plans/needs. Heating Unit Installer: Leila Ruvalcaba DCPIA - Discharge Planning Initial Assessment Updated by [id number]: Leila Ruvalcaba on 07/09/20 12:59 pm * Is the patient Alert and Oriented? No * PCP STUART * Pharmacy [facility] * Preadmission Environment Home Alone * ADLs Independent * List name and contact numbers for known caregivers / representatives who currently or will assist patient after discharge: Guera MALDONADO [phone] * Community resources currently utilized None * Additional services required to return to the preadmission environment? Yes * Can the patient safely return to the preadmission environment? No * Has this patient been hospitalized within the prior 30 days at any hospital? No Coverage Notice Reviewer: [id number] Lima Stallings Notice Issued Date-Time: 07/12/2020 14:30 Notice Type: Patient Choice Letter Notice Delivered To: Family Member Relationship to Patient: Daughter Cfo Controller Name: Guera Delivery Method: HAND - Hand Delivered Thao Days: Prior Verbal Notification: Recipient Understood Notice: Yes Recipient Signature: Yes Med Rec Note Co-signed by Attending: Coverage Notice Comment: [facility] [place] [facility] Reviewer: [id number] Lima Flanagan Notice Issued Date-Time: 07/13/2020 15:35 Notice Type: Patient Choice Letter Notice Delivered To: Family Member Relationship to Patient: Power of Last Cleaner Cfo Controller Name: Guera Dorsey Delivery Method: PHONE - Phone Thao Days: Prior Verbal Notification: Recipient Understood Notice: Yes Recipient Signature: Yes Med Rec Note Co-signed by Attending: Coverage Notice Comment: Devaughn STEWART export: 07/16/20 9:23 a Patient Name: CHRISTOPHER ROBERT Page [id number] at 1037 All edits/amendments must be made on the electronic document DICTATION DATE: 07/16/20 1037 CLIENT SERVICE PROFESSIONAL: JEREMY 07/16/20 [facility] RPT#: [id number] DC DATE: STATUS: ADM IN [facility] [address] [place] [address] END OF REPORT
--- NOTE | 2020-07-16 11:29 | MORECARE ---
CASE MANAGEMENT DISCHARGE SUMMARY PATIENT: CHRISTOPHER ROBERT UNIT: [id number] ADM DATE: 07/06/20 AGE: 85 : 35 SEX: F ROOM/BED: D.2100 AUTHOR: KERRIE,DOC PHYSICIAN: REFERRING PHYSICIAN: FABIENNE DAVIDSON MD DATE OF SERVICE: 07/16/20 Discharge Plan Patient Name: CHRISTOPHER ROBERT Facility: [facility]:[place] : 1935 Planned Disposition: Anticipated Discharge Date: Discharge Date: Expected LOS: Initial Reviewer: [id number] Initial Review Date: 07/06/2020 Generated: 07/16/20 12:29 pm Comments DCP- Discharge Planning Updated by [email or web address]: Katt Flanagan on 07/16/20 9:[address] Leila with [facility] was contacted by patient's daughter, Guera, with a request for information to be sent to [facility]. JACIEL contacted Jhoana with [facility] ([phone]), obtained correct fax number ([phone]) and faxed required information for admission. DCP- Discharge Planning Updated by [email or web address]: Kathi Stallings on 07/15/20 11:[address] I called Guera to tell her I needed to send her referral to a skilled facility. I informed her it took several days for a PA once the facility submits for it. I spoke at length with Guera, and she still has not come to a decision between [facility] and [facility]. States she will call me this afternoon. DCP- Discharge Planning Updated by [email or web address]: Katt Flanagan on 07/13/20 2:41 pm ANALISA Lucero with [employer] states the co-pay is $175.00/day for [id number], at the facility. JACIEL contacted Guera JUAREZ) with this information and she states she will do some more research. Guera states she does not want [facility]. Jaciel made Guera aware that [facility] is in network with patient's insurance. No other facility name has been given. JACIEL received a phone call from Guera JUAREZ) [phone], requesting information be sent to [facility] ([phone]), for her mother. CM contacted Jazmine, with [facility] to make aware of same. Per Jazmine, she notified Guera that the patient's insurance is [id number] for the facility, but she will send it in order to verify. JACIEL faxed FS to [facility] @[phone]. Await CB. DCP- Discharge Planning Updated by [id number]: Kathi Stallings on 07/12/20 2:[address] Jasper called me and informed me [facility] is not taking any admissions at this time because they have positive Covid patients there and are unsure when they can admit. I called Guera back for a second choice and explained IP rehab vs SNF and states that she will need to review the list of SNF and rehab and call me in the morning for a second choice. CM will continue to follow and assist with discharge planning/needs. DCP- Discharge Planning Updated by [email or web address]: Kathi Stallings on 07/12/20 2:[address] JACIEL spoke with Jasper at [facility] and referral faxed. CM will continue to follow and assist with discharge planning/needs. DCP- Discharge Planning Updated by [id number]: Kathi Stallings on 07/12/20 1:[address] CM went to room and spoke with daughter, Madyson, and the patient regarding discharge plan. Patient is agreeable to a rehab and Madyson asks me to call Guera for the EDI. I called Guera (daughter and POA) and she would like a referral to [facility]. I gave her the web site to compare nursing homes for a second choice and she will call me back with the second choice. CM will send referral to [facility]. DCP- Discharge Planning Updated by [id number]: Leila Ruvalcaba on 07/09/20 3:[address] CM received a call Guera pt daughter (POA) who requests that CM speak with the nurse so that both sisters can be in pt room at once. Guera states that someone from the hospital told her that they would make special accommodations to the visitation policy for out of town visitors. JACIEL states that she does not have the authority to tell the nurses to change visitation rule. States she can call administration and voice her concerns. Guera asks if CM will call administration and recommend that the family should have more visitors. CM states that increased visitors puts each person at an increased risk for COVID. Leila Ruvalcaba DCP- Discharge Planning Updated by [id number]: Leila Ruvalcaba on 07/09/20 12:[address] Patient Name: CHRISTOPHER ROBERT Admission Status: ER Accout number: [id number] Admission Date: 07-06-2020 : 1935 Admission Diagnosis:GASTROINTESTINAL HEMORRHAGE, UNSPECIFIED Attending: FABIENNE DAVIDSON Current LOS: 3 Anticipated DC Date: Planned Disposition: Primary Insurance: [facility] [employer] Discharge Planning Comments: CM received call from pt DTR/JOEL Jarrell at [phone] about pt condition. CM initiated initial DC assessment. CM educated Guera on the CM role and verbal consent given to complete assessment. CM verified patient's address, phone number, and emergency contact phone numbers. Patient lives at home alone and still drives. Guera states her mother is non compliant with her oxygen. States her mother sent the oxygen back because her mother stated she did not need it anymore. States she has had [facility] and would like to resume it if she can dc home. CM states it is not a safe DC plan to allow the pt to return home alone with out any assistance. CM talked about the availability of rehab or SNF services. Guera states she would like her to move in with her, but she [place] out of [place]. States the daughter that lives close to her mother does not make good choices, and does not want her to move in with her. States she can provide transportation to get her mother to her. Cm states the patient will need ox at DC and will ensure that the patient will have enough e tanks to get her to Guera' house. CM will continue to follow and will assist as needed with dc plans/needs. Pediatric Physical Therapy Assistant: Leila Ruvalcaba DCPIA - Discharge Planning Initial Assessment Updated by [email or web address]: Leila Ruvalcaba on 07/09/20 12:59 pm * Is the patient Alert and Oriented? No * PCP STUART * Pharmacy [facility] * Preadmission Environment Home Alone * ADLs Independent * List name and contact numbers for known caregivers / representatives who currently or will assist patient after discharge: Guera MALDONADO [phone] * Community resources currently utilized None * Additional services required to return to the preadmission environment? Yes * Can the patient safely return to the preadmission environment? No * Has this patient been hospitalized within the prior 30 days at any hospital? No External Providers [facility] Next Contact Date: Service Request Date: Service Type: Resolution: Reviewer: Comments: Coverage Notice Reviewer: [id number] Lima Stallings Notice Issued Date-Time: 07/12/2020 14:30 Notice Type: Patient Choice Letter Notice Delivered To: Family Member Relationship to Patient: Daughter Customer Contact Representative Name: Guera Delivery Method: HAND - Hand Delivered Thao Days: Prior Verbal Notification: Recipient Understood Notice: Yes Recipient Signature: Yes Med Rec Note Co-signed by Attending: Coverage Notice Comment: [facility] for [facility] Reviewer: [id number] Lima Flanagan Notice Issued Date-Time: 07/13/2020 15:35 Notice Type: Patient Choice Letter Notice Delivered To: Family Member Relationship to Patient: Power of Steam Presser Customer Contact Representative Name: Guera Dorsey Delivery Method: PHONE - Phone Thao Days: Prior Verbal Notification: Recipient Understood Notice: Yes Recipient Signature: Yes Med Rec Note Co-signed by Attending: Coverage Notice Comment: [facility] STEWART export: 07/16/20 9:37 a Patient Name: CHRISTOPHER ROBERT Page [phone] at 1129 All edits/amendments must be made on the electronic document DICTATION DATE: 07/16/20 112 LAND RESOURCE SPECIALIST: JEREMY 07/16/20 1129 RPT#: [id number] DC DATE: STATUS: ADM IN [facility] [address] [place] [address] END OF REPORT
--- NOTE | 2020-07-16 12:12 | NUR ---
OT NOTE: PT PERFORMED MUCH BETTER TODAY. ABLE TO GET TO EOB WITH MIN/MOD ASSIST AND EXTENDED TIME. PT COGNITIVELY MORE CLEAR THAN PREVIOUS DAYS. SIT TO STAND WITH MOD ASSIST WITH USE OF WALKER; MAX ASSIST TO SHILPA BRIEF; ABLE TO WASH FACE AND HANDS WITH CLOTH AND SET UP; AMB WITH WALKER AND MIN ASSIST X 2 AND MAX ASSIST WITH IV AND 02..ALSO FOLLOWED BEHIND PT WITH CHAIR SHE WAS ABLE TO WALK OUTSIDE OF THE ROOM TODAY. PT AMB APPROX 40 FT BUT HAD TO SIT DOWN IN CHAIR WITH 4-5 MIN REST BREAK.. HOWEVER, THIS IS MUCH BETTER THAN PREVIOUS DAYS OF THERAPY. BACK TO BED WITH MOD ASSIST; PRACTICED BRIDGING TO ASSIST WITH BED MOB AND PT WAS ABLE TO PERFORM WITH VERBAL CUES. NABILA HELMS, OTR/L [phone]
[2020-07-16 12:37] VITALS: BP 117/48
--- NOTE | 2020-07-16 13:13 | MORECARE ---
CASE MANAGEMENT DISCHARGE SUMMARY PATIENT: CHRISTOPHER ROBERT UNIT: [id number] ADM DATE: 07/06/20 AGE: 85 : 35 SEX: F ROOM/BED: D.2104 AUTHOR: KERRIE,DOC PHYSICIAN: REFERRING PHYSICIAN: FABIENNE DAVIDSON MD DATE OF SERVICE: 07/16/20 Discharge Plan Patient Name: CHRISTOPHER ROBERT Facility: [facility]:[place] : 1935 Planned Disposition: Anticipated Discharge Date: Discharge Date: Expected LOS: Initial Reviewer: [email or web address] Initial Review Date: 07/06/2020 Generated: 07/16/20 2:13 pm Comments DCP- Discharge Planning Updated by [id number]: Katt Flanagan on 07/16/20 9:[address] Leila with [facility] was contacted by patient's daughter, Guera, with a request for information to be sent to [facility]. JACIEL contacted Jhoana with [facility] ([phone]), obtained correct fax number ([phone]) and faxed required information for admission. DCP- Discharge Planning Updated by [id number]: Kathi Stallings on 07/15/20 11:[address] I called Guera to tell her I needed to send her referral to a skilled facility. I informed her it took several days for a PA once the facility submits for it. I spoke at length with Guera, and she still has not come to a decision between [facility] and [facility]. States she will call me this afternoon. DCP- Discharge Planning Updated by [email or web address]: Katt Flanagan on 07/13/20 2:[address] Jazmine, with [facility] states the co-pay is $175.00/day for [id number], at the facility. JACIEL contacted Guera JUAREZ) with this information and she states she will do some more research. Guera states she does not want [facility]. Jaciel made Guera aware that [facility] is in network with patient's insurance. No other facility name has been given. JACIEL received a phone call from Guera JUAREZ) [phone], requesting information be sent to [facility] ([phone]), for her mother. CM contacted Jazmine, with [facility] to make aware of same. Per Jazmine, she notified Guera that the patient's insurance is [id number] for the facility, but she will send it in order to verify. JACIEL faxed FS to [facility] @[phone]. Await CB. DCP- Discharge Planning Updated by [id number]: Kathi Stallings on 07/12/20 2:[address] Jasper called me and informed me [facility] is not taking any admissions at this time because they have positive Covid patients there and are unsure when they can admit. I called Guera back for a second choice and explained IP rehab vs SNF and states that she will need to review the list of SNF and rehab and call me in the morning for a second choice. CM will continue to follow and assist with discharge planning/needs. DCP- Discharge Planning Updated by [id number]: Kathi Stallings on 07/12/20 2:[address] JACIEL spoke with Jasper at [facility] and referral faxed. CM will continue to follow and assist with discharge planning/needs. DCP- Discharge Planning Updated by [id number]: Kathi Stallings on 07/12/20 1:[address] CM went to room and spoke with daughter, Madyson, and the patient regarding discharge plan. Patient is agreeable to a rehab and Madyson asks me to call Guera for the EDI. I called Guera (daughter and POA) and she would like a referral to [facility]. I gave her the web site to compare nursing homes for a second choice and she will call me back with the second choice. CM will send referral to [facility]. DCP- Discharge Planning Updated by [id number]: Leila Ruvalcaba on 07/09/20 3:[address] CM received a call Guera pt daughter (POA) who requests that CM speak with the nurse so that both sisters can be in pt room at once. Guera states that someone from the hospital told her that they would make special accommodations to the visitation policy for out of town visitors. JACIEL states that she does not have the authority to tell the nurses to change visitation rule. States she can call administration and voice her concerns. Guera asks if CM will call administration and recommend that the family should have more visitors. CM states that increased visitors puts each person at an increased risk for COVID. Leila Ruvalcaba DCP- Discharge Planning Updated by [id number]: Leila Ruvalcaba on 07/09/20 12:[address] Patient Name: CHRISTOPHER ROBERT Admission Status: ER Accout number: [id number] Admission Date: 07-06-2020 : 1935 Admission Diagnosis:GASTROINTESTINAL HEMORRHAGE, UNSPECIFIED Attending: FABIENNE DAVIDSON Current LOS: 3 Anticipated DC Date: Planned Disposition: Primary Insurance: [facility] MEDICARE SOLUTIONS Discharge Planning Comments: CM received call from pt DTR/JOEL Jarrell at [phone] about pt condition. CM initiated initial DC assessment. CM educated Guera on the CM role and verbal consent given to complete assessment. CM verified patient's address, phone number, and emergency contact phone numbers. Patient lives at home alone and still drives. Guera states her mother is non compliant with her oxygen. States her mother sent the oxygen back because her mother stated she did not need it anymore. States she has had [facility] and would like to resume it if she can dc home. CM states it is not a safe DC plan to allow the pt to return home alone with out any assistance. CM talked about the availability of rehab or SNF services. Guera states she would like her to move in with her, but she lives out of state. States the daughter that lives close to her mother does not make good choices, and does not want her to move in with her. States she can provide transportation to get her mother to her. Cm states the patient will need ox at DC and will ensure that the patient will have enough e tanks to get her to Guera' house. CM will continue to follow and will assist as needed with dc plans/needs. Moto Mix Operator: Leila Ruvalcaba DCPIA - Discharge Planning Initial Assessment Updated by [id number]: Leila Ruvalcaba on 07/09/20 12:59 pm * Is the patient Alert and Oriented? No * PCP STUART * Pharmacy [facility] * Preadmission Environment Home Alone * ADLs Independent * List name and contact numbers for known caregivers / representatives who currently or will assist patient after discharge: Guera MALDONADO [phone] * Community resources currently utilized None * Additional services required to return to the preadmission environment? Yes * Can the patient safely return to the preadmission environment? No * Has this patient been hospitalized within the prior 30 days at any hospital? No Coverage Notice Reviewer: [id number] Lima Stallings Notice Issued Date-Time: 07/12/2020 14:30 Notice Type: Patient Choice Letter Notice Delivered To: Family Member Relationship to Patient: Daughter Cork Painter And Grader Name: Guera Delivery Method: HAND - Hand Delivered Thao Days: Prior Verbal Notification: Recipient Understood Notice: Yes Recipient Signature: Yes Med Rec Note Co-signed by Attending: Coverage Notice Comment: [facility] for Ritchie Henry Reviewer: [id number] Lima Flanagan Notice Issued Date-Time: 07/13/2020 15:35 Notice Type: Patient Choice Letter Notice Delivered To: Family Member Relationship to Patient: Power of Calibration Technician Cork Painter And Grader Name: Guera Dorsey Delivery Method: PHONE - Phone Thao Days: Prior Verbal Notification: Recipient Understood Notice: Yes Recipient Signature: Yes Med Rec Note Co-signed by Attending: Coverage Notice Comment: [facility] Morrissey DP export: 07/16/20 10:29 a Patient Name: CHRISTOPHER ROBERT Page [phone] at 1313 All edits/amendments must be made on the electronic document DICTATION DATE: 07/16/20 1313 CULTURE ROOM WORKER: JEREMY 07/16/20 1313 RPT#: [id number] DC DATE: STATUS: ADM IN [facility] [address] [place] [address] END OF REPORT
--- NOTE | 2020-07-16 15:42 | MORECARE ---
CASE MANAGEMENT DISCHARGE SUMMARY PATIENT: CHRISTOPHER ROBERT UNIT: [id number] ADM DATE: 07/06/20 AGE: 85 : 35 SEX: F ROOM/BED: D.2102 AUTHOR: KERRIE,DOC PHYSICIAN: REFERRING PHYSICIAN: FABIENNE DAVIDSON MD DATE OF SERVICE: 07/16/20 Discharge Plan Patient Name: CHRISTOPHER ROBERT Facility: [facility]:[place] : 1935 Planned Disposition: Anticipated Discharge Date: Discharge Date: Expected LOS: Initial Reviewer: [id number] Initial Review Date: 07/06/2020 Generated: 07/16/20 4:42 pm Comments DCP- Discharge Planning Updated by [id number]: Katt Flanagan on 07/16/20 2:[address] JACIEL contacted Mary, with [facility], obtained the fax #[phone], faxed information for a referral. Leila with JACIEL was contacted by patient's daughter, Guera, with a request for information to be sent to [facility]. JACIEL contacted Jhoana, with [employer] ([phone]), obtained correct fax number ([phone]) and faxed required information for admission. DCP- Discharge Planning Updated by [email or web address]: Kathi Stallings on 07/15/20 11:[address] I called Guera to tell her I needed to send her referral to a skilled facility. I informed her it took several days for a PA once the facility submits for it. I spoke at length with Guera, and she still has not come to a decision between [facility] and [facility]. States she will call me this afternoon. DCP- Discharge Planning Updated by [id number]: Katt Flanagan on 07/13/20 2:[address] Jazmine with [employer] states the co-pay is $175.00/day for [id number], at the facility. JACIEL contacted Guera JUAREZ) with this information and she states she will do some more research. Guera states she does not want [facility]. Jaciel made Guera aware that [facility] is in network with patient's insurance. No other facility name has been given. JACIEL received a phone call from Guera (JOEL) [phone], requesting information be sent to [facility] ([phone]), for her mother. CM contacted Jazmine, with [employer] to make aware of same. Per Jazmine, she notified Guera that the patient's insurance is [id number] for the facility, but she will send it in order to verify. JACIEL faxed FS to [facility] @[phone]. Await CB. DCP- Discharge Planning Updated by [id number]: Kathi Stallings on 07/12/20 2:[address] Jasper called me and informed me [facility] is not taking any admissions at this time because they have positive Covid patients there and are unsure when they can admit. I called Guera back for a second choice and explained IP rehab vs SNF and states that she will need to review the list of SNF and rehab and call me in the morning for a second choice. CM will continue to follow and assist with discharge planning/needs. DCP- Discharge Planning Updated by [id number]: Kathi Stlalings on 07/12/20 2:[address] CM spoke with Jasper at [facility] and referral faxed. CM will continue to follow and assist with discharge planning/needs. DCP- Discharge Planning Updated by [id number]: Kathi Stallings on 07/12/20 1:[address] CM went to room and spoke with daughter, Madyson, and the patient regarding discharge plan. Patient is agreeable to a rehab and Madyson asks me to call Guera for the EDI. I called Guera (daughter and POA) and she would like a referral to [facility]. I gave her the web site to compare nursing homes for a second choice and she will call me back with the second choice. CM will send referral to [facility]. DCP- Discharge Planning Updated by [id number]: Leila Ruvalcaba on 07/09/20 3:[address] CM received a call Guera pt daughter (POA) who requests that CM speak with the nurse so that both sisters can be in pt room at once. Guera states that someone from the hospital told her that they would make special accommodations to the visitation policy for out of town visitors. CM states that she does not have the authority to tell the nurses to change visitation rule. States she can call administration and voice her concerns. Guera asks if CM will call administration and recommend that the family should have more visitors. CM states that increased visitors puts each person at an increased risk for COVID. Leila Ruvalcaba DCP- Discharge Planning Updated by [id number]: Leila Ruvalcaba on 07/09/20 12:[address] Patient Name: CHRISTOPHER ROBERT Admission Status: ER Accout number: [id number] Admission Date: 07-06-2020 : 1935 Admission Diagnosis:GASTROINTESTINAL HEMORRHAGE, UNSPECIFIED Attending: FABIENNE DAVIDSON Current LOS: 3 Anticipated DC Date: Planned Disposition: Primary Insurance: [facility] MED[employer] SOLUTIONS Discharge Planning Comments: CM received call from pt DTR/JOEL Jarrell at [phone] about pt condition. CM initiated initial DC assessment. CM educated Guera on the CM role and verbal consent given to complete assessment. CM verified patient's address, phone number, and emergency contact phone numbers. Patient lives at home alone and still drives. Guera states her mother is non compliant with her oxygen. States her mother sent the oxygen back because her mother stated she did not need it anymore. States she has had [facility] and would like to resume it if she can dc home. CM states it is not a safe DC plan to allow the pt to return home alone with out any assistance. CM talked about the availability of rehab or SNF services. Guera states she would like her to move in with her, but she [place] out of [place]. States the daughter that lives close to her mother does not make good choices, and does not want her to move in with her. States she can provide transportation to get her mother to her. Cm states the patient will need ox at DC and will ensure that the patient will have enough e tanks to get her to Guera' house. CM will continue to follow and will assist as needed with dc plans/needs. Customer Service Representative Teacher: Leila Ruvalcaba DCPIA - Discharge Planning Initial Assessment Updated by [id number]: Leila Ruvalcaba on 07/09/20 12:59 pm * Is the patient Alert and Oriented? No * PCP STUART * Pharmacy [facility] * Preadmission Environment Home Alone * ADLs Independent * List name and contact numbers for known caregivers / representatives who currently or will assist patient after discharge: Guera MALDONADO [phone] * Community resources currently utilized None * Additional services required to return to the preadmission environment? Yes * Can the patient safely return to the preadmission environment? No * Has this patient been hospitalized within the prior 30 days at any hospital? No Coverage Notice Reviewer: [id number] Lima Stallings Notice Issued Date-Time: 07/12/2020 14:30 Notice Type: Patient Choice Letter Notice Delivered To: Family Member Relationship to Patient: Daughter Dry Mixer Name: Guera Delivery Method: HAND - Hand Delivered Thao Days: Prior Verbal Notification: Recipient Understood Notice: Yes Recipient Signature: Yes Med Rec Note Co-signed by Attending: Coverage Notice Comment: [facility] Reviewer: [id number] Lima Flanagan Notice Issued Date-Time: 07/13/2020 15:35 Notice Type: Patient Choice Letter Notice Delivered To: Family Member Relationship to Patient: Power of Stock Shaper Dry Mixer Name: Guera Dorsey Delivery Method: PHONE - Phone Thao Days: Prior Verbal Notification: Recipient Understood Notice: Yes Recipient Signature: Yes Med Rec Note Co-signed by Attending: Coverage Notice Comment: [facility] STEWART export: 07/16/20 12:13 p Patient Name: CHRISTOPHER ROBERT Page [id number] at 1542 All edits/amendments must be made on the electronic document DICTATION DATE: 07/16/201541 LATIN TEACHER: JEREMY 07/16/201541 RPT#: [id number] DC DATE: STATUS: ADM IN [facility] [address] [place] [address] END OF REPORT
--- NOTE | 2020-07-16 16:54 | NUR ---
OT NOTE: PT COMPLETED SUPINE TO SIT WITH MIN A. PT COMPLETED ADL MOB WITH CGA/MIN A. PT REQUIRED MOD A FOR SHILPA UNDERGARMENTS. PT EXHIBITED INCREASED ACTIVITY TOLERANCE. PT REQUIRED TOTAL A WITH MEDICAL EQUIPMENT MANAGEMENT. [id number] THANK YOU,AD HENDRICKS
--- NOTE | 2020-07-16 19:30 | NUR ---
RECEIVED REPORT, ASSUMED CARE, BREATHING EVEN UNLABORED, CALL LIGHT IN REACH, BED LOWEST POSITION, NO S/S OF DISTRESS NOTED, IV PATENT, 5.5L HF NC ON
[2020-07-16 21:41] VITALS: BP 101/54
--- NOTE | 2020-07-17 04:30 | NUR ---
I have reviewed this patient and I concur with the Shift Assessment completed by the Licensed Practical Nurse today this shift.
[2020-07-17 04:40] VITALS: BP 150/67
[2020-07-17 05:26] LABS: BASOPHILS 0 % (0-2); EOSINOPHILS 0.6 % (0-7); HEMATOCRIT 36.6 % (36.0-48.0); IMMATURE GRANULOCYTES 0.4 % (0-5); LYMPHOCYTES 9.5 % (15-50); MCHC 30.1 g/dL (31.0-37.0); MCV 93.1 fL (80.0-100.0); MEAN PLATELET VOLUME 10.6 fL (7.4-10.4); MONOCYTES 5.6 % (2-11); NEUTROPHILS 83.9 % (40-80); PLATELET COUNT 291 10x3/uL (130-400); RBC 3.93 10x6/uL (4.00-5.40); RDW 16.1 % (11.5-14.5); WBC 11.6 10x3/uL (4.8-10.8)
[2020-07-17 05:34] LABS: CALC OSMOLALITY 286 mosm/kg (275-300); CALCIUM 8.2 mg/dL (8.5-10.1); CHLORIDE - SERUM 104 mmol/L (98-107); CREATININE - SERUM 0.6 mg/dL (0.6-1.3); GLUCOSE 80 mg/dL (74-106); POTASSIUM - SERUM 4.1 mmol/L (3.5-5.1); SODIUM 144 mmol/L (136-145); UREA NITROGEN 15 mg/dL (7-18); eGFR NON AFRICAN AMERICAN > 90 mL/min (90-120)
--- NOTE | 2020-07-17 07:33 | NUR ---
PT SITTING UP IN BED, RR EVEN AND UNLABORED ON 2L HF NC. DENIES NEEDS OR PAIN AT THIS TIME. CALL LIGHT WITHIN REACH. BED IN LOWEST POSITION. WILL CONTINUE TO MONITOR.
[2020-07-17 08:00] VITALS: BP 139/63
[2020-07-17 10:30] VITALS: BP 131/54
--- NOTE | 2020-07-17 11:02 | NUR ---
PT STATES SHE HAS URINATED AND NEEDS CLEANED UP. PT ALSO STATES SHE HAS BEEN SOILED SINCE 4 AM BUT HAS NOT TOLD ANYONE BECAUSE SHE WAS AFRAID WE WERE TOO BUSY. REASSURED THAT SHE NEEDED TO TELL US WHEN SHE NEEDED TO USE THE BATHROOM OR HAVE ALREADY USED THE BATHROOM ON HERSELF. SHE STATED UNDERSTANDING. BATH RECIEVED, LINENS CHANGED. DENIES FURTHER NEEDS OR PAIN AT THIS TIME. CALL LIGHT WTIHIN REACH. FAMILY MEMBER AT BEDSIDE. WILL CONTINUE TO MONITOR.
[2020-07-17] MEDS ORDERED: CALMOSEPTINE OI71 GM TOPICAL (12:15)
[2020-07-17] MEDS ORDERED: IPRAT-ALBUT 0.5-3 ML UPD (12:16)
[2020-07-17] MEDS ORDERED: PULMICORT0.5 MG/21 UPD (12:17)
[2020-07-17] MEDS ORDERED: ACETAMINOPHEN325 MG PO (12:18)
--- NOTE | 2020-07-17 14:04 | MORECARE ---
CASE MANAGEMENT DISCHARGE SUMMARY PATIENT: CHRISTOPHER ROBERT UNIT: [id number] ADM DATE: 07/06/20 AGE: 85 : 35 SEX: F ROOM/BED: D.2102 AUTHOR: KERRIE,DOC PHYSICIAN: REFERRING PHYSICIAN: FABIENNE DAVIDSON MD DATE OF SERVICE: 07/17/20 Discharge Plan Patient Name: CHRISTOPHER ROBERT Facility: [facility]:[place] : 1935 Planned Disposition: Anticipated Discharge Date: Discharge Date: Expected LOS: Initial Reviewer: [email or web address] Initial Review Date: 07/06/2020 Generated: 07/17/20 3:04 pm Comments DCP- Discharge Planning Updated by [id number]: Katt Flanagan on 07/17/20 1:[address] JACIEL contacted [facility] ([phone]), spoke with Horace Godoy to see if the patient has been accepted to their facility, for a SNF bed. Provided my contact number for a call back. DCP- Discharge Planning Updated by [id number]: Katt Flanagan on 07/16/20 2:[address] JACIEL contacted Mary, with [facility], obtained the fax #[phone], faxed information for a referral. Leila, with CM was contacted by patient's daughter, Guera, with a request for information to be sent to [facility]. JACIEL [facility] with [facility] ([phone]), obtained correct fax number ([phone]) and faxed required information for admission. DCP- Discharge Planning Updated by [id number]: Kathi Stallings on 07/15/20 11:[address] I called Guera to tell her I needed to send her referral to a skilled facility. I informed her it took several days for a PA once the facility submits for it. I spoke at length with Guera, and she still has not come to a decision between [facility] and [facility]. States she will call me this afternoon. DCP- Discharge Planning Updated by [id number]: Katt Flanagan on 07/13/20 2:[address] Jazmine, with [employer] states the co-pay is $175.00/day for [id number], at the facility. JACIEL contacted Guera JUAREZ) with this information and she states she will do some more research. Guera states she does not want [facility]. Jaciel made Guera aware that [facility] is in network with patient's insurance. No other facility name has been given. JACIEL received a phone call from Guera JUAREZ) [phone], requesting information be sent to [facility] ([phone]), for her mother. JACIEL contacted Jazmine, with [employer] to make aware of same. Per Jazmine, she notified Guera that the patient's insurance is [id number] for the facility, but she will send it in order to verify. JACIEL faxed FS to [facility] @[phone]. Await CB. DCP- Discharge Planning Updated by [id number]: Kathi Stallings on 07/12/20 2:53 pm ANALISA Hutchinson called me and informed me [facility] is not taking any admissions at this time because they have positive Covid patients there and are unsure when they can admit. I called Guera back for a second choice and explained IP rehab vs SNF and states that she will need to review the list of SNF and rehab and call me in the morning for a second choice. CM will continue to follow and assist with discharge planning/needs. DCP- Discharge Planning Updated by [id number]: Kathi Stallings on 07/12/20 2:[address] JACIEL spoke with Jasper at [facility] and referral faxed. CM will continue to follow and assist with discharge planning/needs. DCP- Discharge Planning Updated by [id number]: Kathi Stallings on 07/12/20 1:[address] JACIEL went to room and spoke with daughter, Madyson, and the patient regarding discharge plan. Patient is agreeable to a rehab and Madyson asks me to call Guera for the EDI. I called Guera (daughter and POA) and she would like a referral to [facility]. I gave her the web site to compare nursing homes for a second choice and she will call me back with the second choice. CM will send referral to [facility]. DCP- Discharge Planning Updated by [id number]: Leila Ruvalcaba on 07/09/20 3:[address] CM received a call Guera pt daughter (POPawel) who requests that CM speak with the nurse so that both sisters can be in pt room at once. Guera states that someone from the hospital told her that they would make special accommodations to the visitation policy for out of town visitors. CM states that she does not have the authority to tell the nurses to change visitation rule. States she can call administration and voice her concerns. Guera asks if CM will call administration and recommend that the family should have more visitors. CM states that increased visitors puts each person at an increased risk for COVID. Leila Ruvalcaba DCP- Discharge Planning Updated by [id number]: Leila Ruvalcaba on 07/09/20 12:[address] Patient Name: CHRISTOPHER ROBERT Admission Status: ER Accout number: [id number] Admission Date: 07-06-2020 : 1935 Admission Diagnosis:GASTROINTESTINAL HEMORRHAGE, UNSPECIFIED Attending: FABIENNE DAVIDSON Current LOS: 3 Anticipated DC Date: Planned Disposition: Primary Insurance: [facility] MEDICARE SOLUTIONS Discharge Planning Comments: CM received call from pt DTR/JOEL Jarrell at [phone] about pt condition. CM initiated initial DC assessment. CM educated Guera on the CM role and verbal consent given to complete assessment. CM verified patient's address, phone number, and emergency contact phone numbers. Patient lives at home alone and still drives. Guera states her mother is non compliant with her oxygen. States her mother sent the oxygen back because her mother stated she did not need it anymore. States she has had [facility] and would like to resume it if she can dc home. CM states it is not a safe DC plan to allow the pt to return home alone with out any assistance. CM talked about the availability of rehab or SNF services. Guera states she would like her to move in with her, but she lives out of state. States the daughter that lives close to her mother does not make good choices, and does not want her to move in with her. States she can provide transportation to get her mother to her. Cm states the patient will need ox at DC and will ensure that the patient will have enough e tanks to get her to [facility]. CM will continue to follow and will assist as needed with dc plans/needs. Crystal Calibrator: Leila Ruvalcaba DCPIA - Discharge Planning Initial Assessment Updated by [id number]: Leila Ruvalcaba on 07/09/20 12:59 pm * Is the patient Alert and Oriented? No * PCP STUART * Pharmacy [facility] [address] * Preadmission Environment Home Alone * ADLs Independent * List name and contact numbers for known caregivers / representatives who currently or will assist patient after discharge: Guera CONNERPawel [phone] * Community resources currently utilized None * Additional services required to return to the preadmission environment? Yes * Can the patient safely return to the preadmission environment? No * Has this patient been hospitalized within the prior 30 days at any hospital? No Coverage Notice Reviewer: [id number] Lima Stallings Notice Issued Date-Time: 07/12/2020 14:30 Notice Type: Patient Choice Letter Notice Delivered To: Family Member Relationship to Patient: Daughter Turning Machine Operator Name: Guera Delivery Method: HAND - Hand Delivered Thao Days: Prior Verbal Notification: Recipient Understood Notice: Yes Recipient Signature: Yes Med Rec Note Co-signed by Attending: Coverage Notice Comment: [facility] for [facility] Reviewer: [id number] Lima Flanagan Notice Issued Date-Time: 07/13/2020 15:35 Notice Type: Patient Choice Letter Notice Delivered To: Family Member Relationship to Patient: Power of Sustainable Agriculture Specialist Turning Machine Operator Name: Guera Dorsey Delivery Method: PHONE - Phone Thao Days: Prior Verbal Notification: Recipient Understood Notice: Yes Recipient Signature: Yes Med Rec Note Co-signed by Attending: Coverage Notice Comment: [facility] STEWART export: 07/16/20 2:42 p Patient Name: CHRISTOPHER ROBERT Page 21640 at 1404 All edits/amendments must be made on the electronic document DICTATION DATE: 07/17/20 140 DIRECTOR OF BUSINESS APPLICATIONS: JEREMY 07/17/20 1404 RPT#: [id number] DC DATE: STATUS: ADM IN [facility] [address] [place] [address] END OF REPORT
[2020-07-17 15:00] VITALS: BP 101/49
--- NOTE | 2020-07-17 15:19 | NUR ---
I have reviewed this patient and I concur with the Shift Assessment completed by the Licensed Practical Nurse today this shift.
--- NOTE | 2020-07-17 17:04 | MORECARE ---
CASE MANAGEMENT DISCHARGE SUMMARY PATIENT: CHRISTOPHER ROBERT UNIT: [id number] ADM DATE: 07/06/20 AGE: 85 : 35 SEX: F ROOM/BED: D.2102 AUTHOR: KERRIE,DOC PHYSICIAN: REFERRING PHYSICIAN: FABIENNE DAVIDSON MD DATE OF SERVICE: 07/17/20 Discharge Plan Patient Name: CHRISTOPHER ROBERT Facility: [facility] : 1935 Planned Disposition: Anticipated Discharge Date: Discharge Date: Expected LOS: Initial Reviewer: [id number] Initial Review Date: 07/06/2020 Generated: 07/17/20 6:03 pm Comments DCP- Discharge Planning Updated by [id number]: Katt Flanagan on 07/17/20 3:[address] 1655: Phone call returned by Guera, shae. Patient will be accepted when INSURANCE APPROVES her stay. Patient will not be approved until Sunday or Sunday. JACIEL contacted [facility] ([phone]), spoke with Horace Godoy to see if the patient has been accepted to their facility, for a SNF bed. Provided my contact number for a call back. DCP- Discharge Planning Updated by [id number]: Katt Flanagan on 07/16/20 2:[address] CM contacted Mary, with [employer] [facility], obtained the fax #[phone], faxed information for a referral. Leila, with JACIEL was contacted by patient's daughter, Guera, with a request for information to be sent to [facility]. JACIEL contacted Jhoana, with [employer] ([phone]), obtained correct fax number ([phone]) and faxed required information for admission. DCP- Discharge Planning Updated by [email or web address]: Kathi Stallings on 07/15/20 11:[address] I called Guera to tell her I needed to send her referral to a skilled facility. I informed her it took several days for a PA once the facility submits for it. I spoke at length with Guera, and she still has not come to a decision between [facility] and [facility]. States she will call me this afternoon. DCP- Discharge Planning Updated by [id number]: Katt Flanagan on 07/13/20 2:[address] Jazmine, with [employer] states the co-pay is $175.00/day for [id number], at the facility. JACIEL contacted Guera JUAREZ) with this information and she states she will do some more research. Guera states she does not want [facility]. Jaciel made Guera aware that [facility] is in network with patient's insurance. No other facility name has been given. JACIEL received a phone call from Guera (JOEL) [phone], requesting information be sent to [facility] ([phone]), for her mother. JACIEL contacted Jazmine, with [employer] to make aware of same. Per Jazmine, she notified Guera that the patient's insurance is [id number] for the facility, but she will send it in order to verify. JACIEL faxed FS to [employer] @[phone]. Await CB. DCP- Discharge Planning Updated by [id number]: Kathi Stallings on 07/12/20 2:[address] Jasper called me and informed me [facility] is not taking any admissions at this time because they have positive Covid patients there and are unsure when they can admit. I called Guera back for a second choice and explained IP rehab vs SNF and states that she will need to review the list of SNF and rehab and call me in the morning for a second choice. JACIEL will continue to follow and assist with discharge planning/needs. DCP- Discharge Planning Updated by [id number]: Kathi Stallings on 07/12/20 2:[address] JACIEL spoke with Jasper at [facility] and referral faxed. CM will continue to follow and assist with discharge planning/needs. DCP- Discharge Planning Updated by [email or web address]: Kathi Stallings on 07/12/20 1:[address] JACIEL went to room and spoke with daughter, Madyson, and the patient regarding discharge plan. Patient is agreeable to a rehab and Madyson asks me to call Guera for the EDI. I called Guera (daughter and POA) and she would like a referral to [facility]. I gave her the web site to compare nursing homes for a second choice and she will call me back with the second choice. CM will send referral to [facility]. DCP- Discharge Planning Updated by [id number]: Leila Ruvalcaba on 07/09/20 3:[address] CM received a call Guera pt daughter (JOEL) who requests that CM speak with the nurse so that both sisters can be in pt room at once. Guera states that someone from the hospital told her that they would make special accommodations to the visitation policy for out of town visitors. CM states that she does not have the authority to tell the nurses to change visitation rule. States she can call administration and voice her concerns. Guera asks if CM will call administration and recommend that the family should have more visitors. CM states that increased visitors puts each person at an increased risk for COVID. Leila Ruvalcaba DCP- Discharge Planning Updated by [id number]: Leila Ruvalcaba on 07/09/20 12:[address] Patient Name: CHRISTOPHER ROBERT Admission Status: ER Accout number: [id number] Admission Date: 07-06-2020 : 1935 Admission Diagnosis:GASTROINTESTINAL HEMORRHAGE, UNSPECIFIED Attending: FABIENNE DAVIDSON Current LOS: 3 Anticipated DC Date: Planned Disposition: Primary Insurance: [facility] [employer] Discharge Planning Comments: CM received call from pt DTR/JOEL Jarrell at [phone] about pt condition. CM initiated initial DC assessment. CM educated Guera on the CM role and verbal consent given to complete assessment. CM verified patient's address, phone number, and emergency contact phone numbers. Patient lives at home alone and still drives. Guera states her mother is non compliant with her oxygen. States her mother sent the oxygen back because her mother stated she did not need it anymore. States she has had [facility] and would like to resume it if she can dc home. CM states it is not a safe DC plan to allow the pt to return home alone with out any assistance. CM talked about the availability of rehab or SNF services. Guera states she would like her to move in with her, but she lives out of state. States the daughter that lives close to her mother does not make good choices, and does not want her to move in with her. States she can provide transportation to get her mother to her. Cm states the patient will need ox at DC and will ensure that the patient will have enough e tanks to get her to [facility]. CM will continue to follow and will assist as needed with dc plans/needs. Gristmill Operator: Leila Ruvalcaba DCPIA - Discharge Planning Initial Assessment Updated by [id number]: Leila Ruvalcaba on 07/09/20 12:59 pm * Is the patient Alert and Oriented? No * PCP STUART * Pharmacy [facility] * Preadmission Environment Home Alone * ADLs Independent * List name and contact numbers for known caregivers / representatives who currently or will assist patient after discharge: Guera MALDONADO [phone] * Community resources currently utilized None * Additional services required to return to the preadmission environment? Yes * Can the patient safely return to the preadmission environment? No * Has this patient been hospitalized within the prior 30 days at any hospital? No Coverage Notice Reviewer: [id number] Lima Stallings Notice Issued Date-Time: 07/12/2020 14:30 Notice Type: Patient Choice Letter Notice Delivered To: Family Member Relationship to Patient: Daughter Junior Systems Analyst Name: Guera Delivery Method: HAND - Hand Delivered Thao Days: Prior Verbal Notification: Recipient Understood Notice: Yes Recipient Signature: Yes Med Rec Note Co-signed by Attending: Coverage Notice Comment: EDI Ontiveros Reviewer: [id number] Lima Flanagan Notice Issued Date-Time: 07/13/2020 15:35 Notice Type: Patient Choice Letter Notice Delivered To: Family Member Relationship to Patient: Power of Bailer Tenders Supervisor Junior Systems Analyst Name: Guera Dorsey Delivery Method: PHONE - Phone Thao Days: Prior Verbal Notification: Recipient Understood Notice: Yes Recipient Signature: Yes Med Rec Note Co-signed by Attending: Coverage Notice Comment: [facility] Morrissey DP export: 07/17/20 1:04 p Patient Name: CHRISTOPHER ROBERT Page [id number] at 1704 All edits/amendments must be made on the electronic document DICTATION DATE: 07/17/201703 LONG TERM ACUTE CARE REGISTERED NURSE: JEREMY 07/17/201703 RPT#: [id number] DC DATE: STATUS: ADM IN [address] [place] [address] END OF REPORT
[2020-07-17 20:18] VITALS: BP 143/67
--- NOTE | 2020-07-18 02:26 | NUR ---
PT RESTING RR E/U. NO S/S OF DISTRESS. ROTATED PT TO LEFT SIDE. BED LOW CALL LIGHT WITHIN REACH. WILL CONTINUE TO MONITOR.
--- NOTE | 2020-07-18 03:27 | NUR ---
I have reviewed this patient and I concur with the Shift Assessment completed by the Licensed Practical Nurse today this shift.
--- NOTE | 2020-07-18 03:55 | NUR ---
PT RESTING COMFORTABLY AT THIS TIME. RR EVEN AND UNLABORED VITALS STABLE NO S/S OF DISTRESS. CHANGED AND TURNED PT. BED LOW CALL LIGHT WITHIN REACH. WILL CONTINUE TO MONITOR.
[2020-07-18 04:45] VITALS: BP 122/60
[2020-07-18 06:12] LABS: BASOPHILS 0.1 % (0-2); EOSINOPHILS 0.1 % (0-7); HEMATOCRIT 33.6 % (36.0-48.0); HEMOGLOBIN 10.3 g/dL (12-16); IMMATURE GRANULOCYTES 0.2 % (0-5); LYMPHOCYTES 8.9 % (15-50); MCH 28.3 pg (26.0-34.0); MCHC 30.7 g/dL (31.0-37.0); MCV 92.3 fL (80.0-100.0); MEAN PLATELET VOLUME 11.3 fL (7.4-10.4); MONOCYTES 5.7 % (2-11); PLATELET COUNT 275 10x3/uL (130-400); RBC 3.64 10x6/uL (4.00-5.40); RDW 16.1 % (11.5-14.5); WBC 10.6 10x3/uL (4.8-10.8)
[2020-07-18 06:23] LABS: CALC OSMOLALITY 282 mosm/kg (275-300); CARBON DIOXIDE 38.5 mmol/L (21.0-32.0); CHLORIDE - SERUM 104 mmol/L (98-107); CREATININE - SERUM 0.7 mg/dL (0.6-1.3); GLUCOSE 87 mg/dL (74-106); POTASSIUM - SERUM 4.1 mmol/L (3.5-5.1); SODIUM 141 mmol/L (136-145); eGFR NON AFRICAN AMERICAN 84 mL/min (90-120)
[2020-07-18 06:24] LABS: UREA NITROGEN 20 mg/dL (7-18)
[2020-07-18 08:18] VITALS: BP 130/63
--- NOTE | 2020-07-18 10:32 | NUR ---
PT ALERT AND ORIENTED, UP EATING BREAKFAST. TOO KMEDICATIONS WITHOUT ASSISTNACE. DAUGHTER AT BEDSIDE. NO COMPLAINTS OR CONCERNS THIS AM. VERBALIZED UNDERSTANDING THAT SHE WOULD LIEKLY GO TOMORROW TO HER NEW FACILITY (REHAB) DT INSURANCE. CL IN REACH, SRX2.
[2020-07-18 11:25] VITALS: BP 111/51
--- NOTE | 2020-07-18 13:29 | NUR ---
I have reviewed this patient and I concur with the Shift Assessment completed by the Licensed Practical Nurse today this shift.
--- NOTE | 2020-07-18 15:33 | NUR ---
PT RESTING COMFORTABLY IN ROOM, DAUGHTER HAS LEFT BUT STATES THAT SHE WILL BE BACK LATER TODAY. BREATHS EVEN/REGULAR AND UNLABORED. EYES CLSOED. CL INR EACH, SRX2.
[2020-07-18 17:41] VITALS: BP 121/65
[2020-07-18 21:30] VITALS: BP 126/6; BP 126/62
--- NOTE | 2020-07-19 03:29 | NUR ---
I have reviewed this patient and I concur with the Shift Assessment completed by the Licensed Practical Nurse today this shift.
[2020-07-19 04:00] VITALS: BP 120/72
[2020-07-19 04:35] VITALS: BP 142/70
[2020-07-19 09:39] VITALS: BP 147/65
--- NOTE | 2020-07-19 10:06 | MORECARE ---
CASE MANAGEMENT DISCHARGE SUMMARY PATIENT: CHRISTOPHER ROBERT UNIT: [id number] ADM DATE: 07/06/20 AGE: 85 : 35 SEX: F ROOM/BED: D.2102 AUTHOR: KERRIE,DOC PHYSICIAN: REFERRING PHYSICIAN: FABIENNE DAVIDSON MD DATE OF SERVICE: 07/19/20 Discharge Plan Patient Name: CHRISTOPHER ROBERT Facility: [facility]:[place] : 1935 Planned Disposition: Group Home Facility Anticipated Discharge Date: 07/20/20 Discharge Date: Expected LOS: 14 Initial Reviewer: [id number] Initial Review Date: 07/06/2020 Generated: 07/19/20 11:06 am Comments DCP- Discharge Planning Updated by [id number]: Katt Flanagan on 07/17/20 3:[address] 1655: Phone call returned by Guera, shae. Patient will be accepted when INSURANCE APPROVES her stay. Patient will not be approved until Sunday or Sunday. [facility] ([phone]), spoke with Horace Godoy to see if the patient has been accepted to their facility, for a SNF bed. Provided my contact number for a call back. DCP- Discharge Planning Updated by [id number]: Katt Flanagan on 07/16/20 2:[address] CM contacted Mary, with [employer] [facility], obtained the fax #[phone], faxed information for a referral. Leila, with JACIEL was contacted by patient's daughter, Guera, with a request for information to be sent to [facility]. JACIEL contacted Jhoana, with [employer] ([phone]), obtained correct fax number ([phone]) and faxed required information for admission. DCP- Discharge Planning Updated by [id number]: Kathi Stallings on 07/15/20 11:[address] I called Guera to tell her I needed to send her referral to a skilled facility. I informed her it took several days for a PA once the facility submits for it. I spoke at length with Guera, and she still has not come to a decision between [facility] and [facility]. States she will call me this afternoon. DCP- Discharge Planning Updated by [id number]: Katt Flanagan on 07/13/20 2:[address] Jazmine, with [employer] states the co-pay is $175.00/day for [id number], at the facility. JACIEL contacted Guera JUAREZ) with this information and she states she will do some more research. Guera states she does not want [facility]. Jaciel made Guera aware that [facility] is in network with patient's insurance. No other facility name has been given. JACIEL received a phone call from Guera JUAREZ) [phone], requesting information be sent to [facility] ([phone]), for her mother. JACIEL contacted Jazmine, with [employer] to make aware of same. Per Jazmine, she notified Guera that the patient's insurance is [id number] for the facility, but she will send it in order to verify. JACIEL faxed FS to [employer] @[phone]. Await CB. DCP- Discharge Planning Updated by [id number]: Kathi Stallings on 07/12/20 2:[address] Jasper called me and informed me [facility] is not taking any admissions at this time because they have positive Covid patients there and are unsure when they can admit. I called Guera back for a second choice and explained IP rehab vs SNF and states that she will need to review the list of SNF and rehab and call me in the morning for a second choice. JACIEL will continue to follow and assist with discharge planning/needs. DCP- Discharge Planning Updated by [id number]: Kathi Stallings on 07/12/20 2:[address] JACIEL spoke with Jasper at [facility] and referral faxed. CM will continue to follow and assist with discharge planning/needs. DCP- Discharge Planning Updated by [id number]: Kathi Stallings on 07/12/20 1:[address] JACIEL went to room and spoke with daughter, Madyson, and the patient regarding discharge plan. Patient is agreeable to a rehab and Madyson asks me to call Guera for the EDI. I called Guera (daughter and POA) and she would like a referral to [facility]. I gave her the web site to compare nursing homes for a second choice and she will call me back with the second choice. CM will send referral to [employer]. DCP- Discharge Planning Updated by [id number]: Leila Ruvalcaba on 07/09/20 3:[address] CM received a call Guera pt daughter (JOEL) who requests that CM speak with the nurse so that both sisters can be in pt room at once. Guera states that someone from the hospital told her that they would make special accommodations to the visitation policy for out of town visitors. CM states that she does not have the authority to tell the nurses to change visitation rule. States she can call administration and voice her concerns. Guera asks if CM will call administration and recommend that the family should have more visitors. CM states that increased visitors puts each person at an increased risk for COVID. Leila Ruvalcaba DCP- Discharge Planning Updated by [id number]: Leila Ruvalcaba on 07/09/20 12:[address] Patient Name: CHRISTOPHER ROBERT Admission Status: ER Accout number: [id number] Admission Date: 07-06-2020 : 1935 Admission Diagnosis:GASTROINTESTINAL HEMORRHAGE, UNSPECIFIED Attending: FABIENNE DAVIDSON Current LOS: 3 Anticipated DC Date: Planned Disposition: Primary Insurance: [facility] [employer] Discharge Planning Comments: CM received call from pt DTR/JOEL Jarrell at [phone] about pt condition. CM initiated initial DC assessment. CM educated Guera on the CM role and verbal consent given to complete assessment. CM verified patient's address, phone number, and emergency contact phone numbers. Patient lives at home alone and still drives. Guera states her mother is non compliant with her oxygen. States her mother sent the oxygen back because her mother stated she did not need it anymore. States she has had [facility] and would like to resume it if she can dc home. CM states it is not a safe DC plan to allow the pt to return home alone with out any assistance. CM talked about the availability of rehab or SNF services. Guera states she would like her to move in with her, but she lives out of state. States the daughter that lives close to her mother does not make good choices, and does not want her to move in with her. States she can provide transportation to get her mother to her. Cm states the patient will need ox at DC and will ensure that the patient will have enough e tanks to get her to [facility]. CM will continue to follow and will assist as needed with dc plans/needs. Irrigation System Installer: Leila Ruvalcaba DCPIA - Discharge Planning Initial Assessment Updated by [id number]: Leila Ruvalcaba on 07/09/20 12:59 pm * Is the patient Alert and Oriented? No * PCP STUART * Pharmacy [facility] * Preadmission Environment Home Alone * ADLs Independent * List name and contact numbers for known caregivers / representatives who currently or will assist patient after discharge: Guera MALDONADO [phone] * Community resources currently utilized None * Additional services required to return to the preadmission environment? Yes * Can the patient safely return to the preadmission environment? No * Has this patient been hospitalized within the prior 30 days at any hospital? No Coverage Notice Reviewer: [id number] Lima Stallings Notice Issued Date-Time: 07/12/2020 14:30 Notice Type: Patient Choice Letter Notice Delivered To: Family Member Relationship to Patient: Daughter Mandolin Repair Person Name: Guera Delivery Method: HAND - Hand Delivered Thao Days: Prior Verbal Notification: Recipient Understood Notice: Yes Recipient Signature: Yes Med Rec Note Co-signed by Attending: Coverage Notice Comment: EDI antonia Arandastephanie Ontiveros Reviewer: [id number] Lima Flanagan Notice Issued Date-Time: 07/13/2020 15:35 Notice Type: Patient Choice Letter Notice Delivered To: Family Member Relationship to Patient: Power of Build Master Mandolin Repair Person Name: Guera Dorsey Delivery Method: PHONE - Phone Thao Days: Prior Verbal Notification: Recipient Understood Notice: Yes Recipient Signature: Yes Med Rec Note Co-signed by Attending: Coverage Notice Comment: [facility] Morrissey DP export: 07/17/20 4:04 p Patient Name: CHRISTOPHER ROBERT Page [phone] at 1006 All edits/amendments must be made on the electronic document DICTATION DATE: 07/19/20 1006 MANUFACTURER'S REPRESENTATIVE: JEREMY 07/19/20 1006 RPT#: [id number] DC DATE: STATUS: ADM IN [facility] [address] [place] [address] END OF REPORT
--- NOTE | 2020-07-19 10:23 | NUR ---
PT ALERT AND OREINTED, TOOK MEDICATIONS WITHOUT COMPLICATIONS. DAUGHTER AT BEDSIDE. ATE WELL FOR BREAKFAST. CLEAN AND DRY AT THIS TIME. CM SAW PT AND INFORMED THEM IT OWULD LIKELY BE LATER TODAY OR TOMORROW BEFORE SHE WAS ABLE TO TRANSFER TO PLANNED FACILITY. WILL CNT. TO MONITOR. CL IN REACH, SRX2, NO COPMLAITNS OR CONCERNS STATED AT THIS TIME.
[2020-07-19 12:00] VITALS: BP 124/58
--- NOTE | 2020-07-19 14:12 | NUR ---
OT NOTE: PERFORMED BED MOB WITH MIN/MOD ASSIST; SIT TO STAND WITH WALKER AND MIN ASSIST; STANDING BALANCE FAIR WITH UE SUPPORT; FUNCTIONAL TRANSFERS WITH MIN ASSIST; ABLE TO AMB APPROX 20 FT WITH WALKER, MIN ASSIST, AND NO REST BREAKS.. PT DID HOWEVER REQUIRE CONSTANT VERBAL CUEING FOR WALKER MGMT (STAYING UP IN THE WALKER)..SET UP FOR SIMPLE GROOMING TASKS, HOWEVER, CONTINUES TO REQUIRE MOD ASSIST WITH ADLS. FREQ INCONTINENT EPISODES. NABILA HELMS, OTR/L [phone]
--- NOTE | 2020-07-19 16:55 | NUR ---
I have reviewed this patient and I concur with the Shift Assessment completed by the Licensed Practical Nurse today this shift.
--- NOTE | 2020-07-20 01:14 | NUR ---
pt laying in bed alert and oriented.pt has 02 in use @ 2l/m per nasal cannula.INT to left wrist with no s/s of infiltration.no complaints or request.callbell within reach. siderails up x2.no distress noted. will continue to monitor.
--- NOTE | 2020-07-20 02:00 | NUR ---
PT RESTING QUIETLY WITH EYES CLOSED. 02 IN USE. RESP ARE EVEN ET UNLABORED.NO DISTRESS NOTED.
[2020-07-20 07:00] VITALS: BP 125/57
--- NOTE | 2020-07-20 07:20 | NUR ---
RECIEVE REPORT. SITTING UP IN BED. ALERT AND ORIENTED X4. DENIES ANY NEEDS AT THIS TIME. CONTINUE PLAN OF CARE AND SAFETY PRECAUTIONS.
--- NOTE | 2020-07-20 10:14 | MORECARE ---
CASE MANAGEMENT DISCHARGE SUMMARY PATIENT: CHRISTOPHER ROBERT UNIT: [id number] ADM DATE: 07/06/20 AGE: 85 : 35 SEX: F ROOM/BED: D.2106 AUTHOR: KERRIE,DOC PHYSICIAN: REFERRING PHYSICIAN: FABIENNE DAVIDSON MD DATE OF SERVICE: 07/20/20 Discharge Plan Patient Name: CHRISTOPHER ROBERT Facility: [facility]:[place] : 1935 Planned Disposition: Fpc Facility Anticipated Discharge Date: 07/20/20 Discharge Date: Expected LOS: 14 Initial Reviewer: [id number] Initial Review Date: 07/06/2020 Generated: 07/20/20 11:13 am Comments DCP- Discharge Planning Updated by [id number]: Kathi Stallings on 07/20/20 9:[address] Spoke with Mary at [facility]. Mary states they are still awaiting PA from insurance. CM will continue to follow and assist with discharge planning/needs. DCP- Discharge Planning Updated by [email or web address]: Katt Flanagan on 07/17/20 3:[address] 1655: Phone call returned by shae Lynne. Patient will be accepted when INSURANCE APPROVES her stay. Patient will not be approved until Sunday or Sunday. CM contacted [facility] ([phone]), spoke with Horace Godoy to see if the patient has been accepted to their facility, for a SNF bed. Provided my contact number for a call back. DCP- Discharge Planning Updated by [id number]: Katt Flanagan on 07/16/20 2:[address] CM contacted Mary, with [facility], obtained the fax #[phone], faxed information for a referral. Leila, with CM was contacted by patient's daughter, Guera, with a request for information to be sent to [facility]. CM contacted Jhoana, with [facility] ([phone]), obtained correct fax number ([phone]) and faxed required information for admission. DCP- Discharge Planning Updated by [id number]: Kathi Stallings on 07/15/20 11:[address] I called Guera to tell her I needed to send her referral to a skilled facility. I informed her it took several days for a PA once the facility submits for it. I spoke at length with Guera, and she still has not come to a decision between [facility] and [facility]. States she will call me this afternoon. DCP- Discharge Planning Updated by [id number]: Katt Panchito on 07/13/20 2:[address] Jazmine, with [facility] states the co-pay is $175.00/day for [id number], at the facility. JACIEL contacted Guera JUAREZ) with this information and she states she will do some more research. Guera states she does not want [facility]. Jaciel made Guera aware that [facility] is in network with patient's insurance. No other facility name has been given. JACIEL received a phone call from Guera JUAREZ) [phone], requesting information be sent to [facility] ([phone]), for her mother. JACIEL contacted Jazmine, with [facility] to make aware of same. Per Jazmine, she notified Guera that the patient's insurance is [id number] for the facility, but she will send it in order to verify. JACIEL faxed FS to [facility] @[phone]. Await . DCP- Discharge Planning Updated by [id number]: Kathi Stallings on 07/12/20 2:[address] Jasper called me and informed me [facility] is not taking any admissions at this time because they have positive Covid patients there and are unsure when they can admit. I called Guera back for a second choice and explained IP rehab vs SNF and states that she will need to review the list of SNF and rehab and call me in the morning for a second choice. CM will continue to follow and assist with discharge planning/needs. DCP- Discharge Planning Updated by [id number]: Kathi Stallings on 07/12/20 2:[address] JACIEL spoke with Jasper at [facility] and referral faxed. CM will continue to follow and assist with discharge planning/needs. DCP- Discharge Planning Updated by [id number]: Kathi Stallings on 07/12/20 1:[address] CM went to room and spoke with daughter, Madyson, and the patient regarding discharge plan. Patient is agreeable to a rehab and Madyson asks me to call Guera for the EDI. I called Guera (daughter and POA) and she would like a referral to [facility]. I gave her the web site to compare nursing homes for a second choice and she will call me back with the second choice. CM will send referral to [facility]. DCP- Discharge Planning Updated by [id number]: Leila Ruvalcaba on 07/09/20 3:[address] CM received a call Guera pt daughter (POA) who requests that CM speak with the nurse so that both sisters can be in pt room at once. Guera states that someone from the hospital told her that they would make special accommodations to the visitation policy for out of town visitors. CM states that she does not have the authority to tell the nurses to change visitation rule. States she can call administration and voice her concerns. Guera asks if CM will call administration and recommend that the family should have more visitors. CM states that increased visitors puts each person at an increased risk for COVID. Leila Ruvalcaba DCP- Discharge Planning Updated by [id number]: Leila Ruvalcaba on 07/09/20 12:[address] Patient Name: CHRISTOPHER ROBERT Admission Status: ER Accout number: [id number] Admission Date: 07-06-2020 : 1935 Admission Diagnosis:GASTROINTESTINAL HEMORRHAGE, UNSPECIFIED Attending: FABIENNE DAVIDSON Current LOS: 3 Anticipated DC Date: Planned Disposition: Primary Insurance: [facility] [employer] Discharge Planning Comments: CM received call from pt DTR/JOEL Jarrell at [phone] about pt condition. CM initiated initial DC assessment. CM educated Guera on the CM role and verbal consent given to complete assessment. CM verified patient's address, phone number, and emergency contact phone numbers. Patient lives at home alone and still drives. Guera states her mother is non compliant with her oxygen. States her mother sent the oxygen back because her mother stated she did not need it anymore. States she has had [facility] and would like to resume it if she can dc home. CM states it is not a safe DC plan to allow the pt to return home alone with out any assistance. CM talked about the availability of rehab or SNF services. Guera states she would like her to move in with her, but she [place] of [place]. States the daughter that lives close to her mother does not make good choices, and does not want her to move in with her. States she can provide transportation to get her mother to her. Cm states the patient will need ox at DC and will ensure that the patient will have enough e tanks to get her to Guera' house. CM will continue to follow and will assist as needed with dc plans/needs. Grounds Person: Leila Ruvalcaba DCPIA - Discharge Planning Initial Assessment Updated by [id number]: Leila Ruvalcaba on 07/09/20 12:59 pm * Is the patient Alert and Oriented? No * PCP ST[facility] * Pharmacy [facility] * Preadmission Environment Home Alone * ADLs Independent * List name and contact numbers for known caregivers / representatives who currently or will assist patient after discharge: Guera MALDONADO [phone] * Community resources currently utilized None * Additional services required to return to the preadmission environment? Yes * Can the patient safely return to the preadmission environment? No * Has this patient been hospitalized within the prior 30 days at any hospital? No Coverage Notice Reviewer: [id number] - Kathi Stallings Notice Issued Date-Time: 07/12/2020 14:30 Notice Type: Patient Choice Letter Notice Delivered To: Family Member Relationship to Patient: Daughter De Icer Kit Assembler Name: Guera Delivery Method: HAND - Hand Delivered Thao Days: Prior Verbal Notification: Recipient Understood Notice: Yes Recipient Signature: Yes Med Rec Note Co-signed by Attending: Coverage Notice Comment: EDI for [facility] Reviewer: [id number] - Katt Flanagan Notice Issued Date-Time: 07/13/2020 15:35 Notice Type: Patient Choice Letter Notice Delivered To: Family Member Relationship to Patient: Power of Director Internal Control De Icer Kit Assembler Name: Guera Dorsey Delivery Method: PHONE - Phone Thao Days: Prior Verbal Notification: Recipient Understood Notice: Yes Recipient Signature: Yes Med Rec Note Co-signed by Attending: Coverage Notice Comment: [facility] STEWART export: 07/19/20 9:06 a Patient Name: CHRISTOPHER ROBERT Page [id number] at 1014 All edits/amendments must be made on the electronic document DICTATION DATE: 07/20/20 1013 NUMERICAL CONTROL MACHINE OPERATOR: JEREMY 07/20/20 1013 RPT#: [id number] DC DATE: STATUS: ADM IN [facility] [address] [place] [address] END OF REPORT
[2020-07-20 10:30] VITALS: BP 108/50
--- NOTE | 2020-07-20 11:13 | NUR ---
Nutrition Follow-up: Pt reports eating ok. Denies N/V/C/D. Awaiting placement. Diet: Gluten Free, [facility] Soft PO intake: 50% Wt: 93# (07/07) Last BM: 07/19 Labs reviewed Meds reviewed -Encourage PO intake and honor food preferences within diet restrictions. -Need new wt if possible. -RD following.
--- NOTE | 2020-07-20 14:05 | MORECARE ---
CASE MANAGEMENT DISCHARGE SUMMARY PATIENT: CHRISTOPHER ROBERT UNIT: [id number] ADM DATE: 07/06/20 AGE: 85 : 35 SEX: F ROOM/BED: D.0096 AUTHOR: KERRIE,DOC PHYSICIAN: REFERRING PHYSICIAN: FABIENNE DAVIDSON MD DATE OF SERVICE: 07/20/20 Discharge Plan Patient Name: CHRISTOPHER ROBERT Facility: [facility]:[place] : 1935 Planned Disposition: Snf Facility Anticipated Discharge Date: 07/20/20 Discharge Date: Expected LOS: 14 Initial Reviewer: [email or web address] Initial Review Date: 07/06/2020 Generated: 07/20/20 3:04 pm Comments DCP- Discharge Planning Updated by [email or web address]: Kathi Stallings on 07/20/20 12:[address] SPOKE WITH PARUL AT [facility] AND FAXED ORDER AND CLINICAL FOR TRILOGY/BIPAP. PRAUL STATES THEY WILL ORDER THE TRILOGY/BIPAP. CM WILL CONTINUE TO FOLLOW AND ASSIST WITH DC PLANNING/NEEDS. AWAITING PA FROM INSURANCE. DCP- Discharge Planning Updated by [id number]: Kathi Stallings on 07/20/20 9:[address] Spoke with Parul at [facility]. Parul states they are still awaiting PA from insurance. CM will continue to follow and assist with discharge planning/needs. DCP- Discharge Planning Updated by [id number]: Katt Flanagan on 07/17/20 3:[address] 1655: Phone call returned by shae Lynne. Patient will be accepted when INSURANCE APPROVES her stay. Patient will not be approved until Sunday or Sunday. CM contacted [facility] ([phone]), spoke with Horace Godoy to see if the patient has been accepted to their facility, for a SNF bed. Provided my contact number for a call back. DCP- Discharge Planning Updated by [id number]: Katt Flanagan on 07/16/20 2:[address] CM contacted Parul, with [facility], obtained the fax #[phone], faxed information for a referral. Leila with CM was contacted by patient's daughter, Guera, with a request for information to be sent to [facility]. JACIEL contacted Jhoana, with [facility] ([phone]), obtained correct fax number ([phone]) and faxed required information for admission. DCP- Discharge Planning Updated by [id number]: Kathi Ramirezlucia on 07/15/20 11:[address] I called Guera to tell her I needed to send her referral to a skilled facility. I informed her it took several days for a PA once the facility submits for it. I spoke at length with Guera, and she still has not come to a decision between [facility] and [facility]. States she will call me this afternoon. DCP- Discharge Planning Updated by [id number]: Katt Flanagan on 07/13/20 2:[address] Jazmine, with [facility] states the co-pay is $175.00/day for [id number], at the facility. JACIEL contacted Guera (JOEL) with this information and she states she will do some more research. Guera states she does not want [facility]. Jaciel made Guera aware that [facility] is in network with patient's insurance. No other facility name has been given. JACIEL received a phone call from Guera (JOEL) [phone], requesting information be sent to [facility] ([phone]), for her mother. JACIEL contacted Jazmine, with [facility] to make aware of same. Per Jazmine, she notified Guera that the patient's insurance is [id number] for the facility, but she will send it in order to verify. JACIEL faxed FS to [facility] @[phone]. Await . DCP- Discharge Planning Updated by [id number]: Kathiamy Stallings on 07/12/20 2:[address] Jasper called me and informed me [facility] is not taking any admissions at this time because they have positive Covid patients there and are unsure when they can admit. I called Guera back for a second choice and explained IP rehab vs SNF and states that she will need to review the list of SNF and rehab and call me in the morning for a second choice. CM will continue to follow and assist with discharge planning/needs. DCP- Discharge Planning Updated by [email or web address]: Kathi Stallings on 07/12/20 2:[address] CM spoke with Jasepr at [facility] and referral faxed. CM will continue to follow and assist with discharge planning/needs. DCP- Discharge Planning Updated by [id number]: Kathi Stallings on 07/12/20 1:[address] CM went to room and spoke with daughter, Madyson, and the patient regarding discharge plan. Patient is agreeable to a rehab and Madyson asks me to call Guera for the EDI. I called Geura (daughter and POA) and she would like a referral to [facility]. I gave her the web site to compare nursing [facility] for a second choice and she will call me back with the second choice. CM will send referral to [facility]. DCP- Discharge Planning Updated by [id number]: Leila Ruvalcaba on 07/09/20 3:[address] CM received a call Guera pt daughter (POA) who requests that CM speak with the nurse so that both sisters can be in pt room at once. Guera states that someone from the hospital told her that they would make special accommodations to the visitation policy for out of town visitors. CM states that she does not have the authority to tell the nurses to change visitation rule. States she can call administration and voice her concerns. Guera asks if CM will call administration and recommend that the family should have more visitors. CM states that increased visitors puts each person at an increased risk for COVID. Leila Ruvalcaba DCP- Discharge Planning Updated by [id number]: Leila Ruvalcaba on 07/09/20 12:[address] Patient Name: CHRISTOPHER ROBERT Admission Status: ER Accout number: [id number] Admission Date: 07-06-2020 : 1935 Admission Diagnosis:GASTROINTESTINAL HEMORRHAGE, UNSPECIFIED Attending: FABIENNE DAVIDSON Current LOS: 3 Anticipated DC Date: Planned Disposition: Primary Insurance: [facility] [employer]IC[employer] SOLUTIONS Discharge Planning Comments: CM received call from pt DTR/JOEL Jarrell at [phone] about pt condition. CM initiated initial DC assessment. CM educated Guera on the CM role and verbal consent given to complete assessment. CM verified patient's address, phone number, and emergency contact phone numbers. Patient lives at home alone and still drives. Guera states her mother is non compliant with her oxygen. States her mother sent the oxygen back because her mother stated she did not need it anymore. States she has had [facility] and would like to resume it if she can dc home. CM states it is not a safe DC plan to allow the pt to return home alone with out any assistance. CM talked about the availability of rehab or SNF services. Guera states she would like her to move in with her, but she lives out of state. States the daughter that lives close to her mother does not make good choices, and does not want her to move in with her. States she can provide transportation to get her mother to her. Cm states the patient will need ox at DC and will ensure that the patient will have enough e tanks to get her to Guera' house. CM will continue to follow and will assist as needed with dc plans/needs. Rn Physician Office: Leila Ruvalcaba DCPIA - Discharge Planning Initial Assessment Updated by [id number]: Leila Ruvalcaba on 07/09/20 12:59 pm * Is the patient Alert and Oriented? No * PCP STUART * Pharmacy [facility] * Preadmission Environment Home Alone * ADLs Independent * List name and contact numbers for known caregivers / representatives who currently or will assist patient after discharge: Guera JOEL [phone] * Community resources currently utilized None * Additional services required to return to the preadmission environment? Yes * Can the patient safely return to the preadmission environment? No * Has this patient been hospitalized within the prior 30 days at any hospital? No Coverage Notice Reviewer: [id number] - Kathi Stallings Notice Issued Date-Time: 07/12/2020 14:30 Notice Type: Patient Choice Letter Notice Delivered To: Family Member Relationship to Patient: Daughter Aerospace Manager Name: Guera Delivery Method: HAND - Hand Delivered Thao Days: Prior Verbal Notification: Recipient Understood Notice: Yes Recipient Signature: Yes Med Rec Note Co-signed by Attending: Coverage Notice Comment: EDI for [facility] Reviewer: [id number] Lima Flanagan Notice Issued Date-Time: 07/13/2020 15:35 Notice Type: Patient Choice Letter Notice Delivered To: Family Member Relationship to Patient: Power of Weight Analyst Aerospace Manager Name: Guera Dorsey Delivery Method: PHONE - Phone Thao Days: Prior Verbal Notification: Recipient Understood Notice: Yes Recipient Signature: Yes Med Rec Note Co-signed by Attending: Coverage Notice Comment: [facility] Morrissey DP export: 07/20/20 9:14 a Patient Name: CHRISTOPHER ROBERT Page [phone] at 1405 All edits/amendments must be made on the electronic document DICTATION DATE: 07/20/201404 CHILD CUSTODY EVALUATOR: JEREMY 07/20/20 1405 RPT#: [id number] DC DATE: STATUS: ADM IN [facility] [address] [place] [address] END OF REPORT
--- NOTE | 2020-07-20 14:49 | NUR ---
ALERT AND ORIENTED X4. LINENS SOILED. LINEN CHANGE COMPLETE. ASSIST UP IN BED. DENIES ANY OTHER NEEDS. CONTINUE PLAN OF CARE AND SAFETY PRECAUTIONS.
[2020-07-20 15:00] VITALS: BP 107/50
--- NOTE | 2020-07-20 15:10 | NUR ---
ASSIST TO READ OUT INSURANCE NUMBER TO ERIN WORTHY) ON [address] WAY PHONE CONVERSATION WITH REHAB FACILITY. PATIENT GIVES ERIN FULL PERMISSION TO ASSIST WITH ALL ARRANGEMENTS WITH FACILITY.
--- NOTE | 2020-07-20 16:13 | NUR ---
OT NOTE: PT RESTING IN BED. JUST SEEN BY Aparna. PT ORIENTED TO SELF AND PLACE..LOOKS OVER TO HERSIDE AND NOTICES HER SUITCASE IS PACKED.. PT STATES "I GUESS IM LEAVING TODAY" . WHEN ASKED IF SHE HAD BEEN UP OUT OF BED SHE STATES, "I DONT KNOW". D/W PHYS THERAPY AND SHE REFUSED HIM EARLIER TODAY. PERFORMED BED MOB WITH MOD ASSIST TO EOB. UE AROM EXS WHILE SITTING ON EOB WITH OCCASSIONAL ASSIST FOR BALANCE. ASSISTED BACK TO BED WITH MOD ASSIST. NABILA HELMS, OTR/L [phone]
[2020-07-20 20:00] VITALS: BP 111/54
[2020-07-21] VITALS: BP 115/52
[2020-07-21 04:00] VITALS: BP 122/57
--- NOTE | 2020-07-21 04:22 | NUR ---
PT RESTING WITH EYES CLOSE RR EVEN AND UNLABORED. NO S/S OF DISTRESS AT THIS TIME. BED LOW CALL LIGHT WITHIN REACH. WILL CONTINUE TO MONITOR.
--- NOTE | 2020-07-21 07:20 | NUR ---
RECIEVED REPORT PT SITTING IN BED WATCHING TV. NO COMPLAINTS.
[2020-07-21 07:42] VITALS: BP 120/49
--- NOTE | 2020-07-21 10:43 | MORECARE ---
CASE MANAGEMENT DISCHARGE SUMMARY PATIENT: CHRISTOPHER ROBERT UNIT: [id number] ADM DATE: 07/06/20 AGE: 85 : 35 SEX: F ROOM/BED: D.2102 AUTHOR: KERRIE,DOC PHYSICIAN: REFERRING PHYSICIAN: FABIENNE DAVIDSON MD DATE OF SERVICE: 07/21/20 Discharge Plan Patient Name: CHRISTOPHER ROBERT Facility: [facility]:[place] : 1935 Planned Disposition: Senior Care Facility Anticipated Discharge Date: 07/20/20 Discharge Date: Expected LOS: 14 Initial Reviewer: [id number] Initial Review Date: 07/06/2020 Generated: 07/21/20 11:43 am Comments DCP- Discharge Planning Updated by [id number]: Kathi Stallings on 07/21/20 9:[address] I received a call from Parul at [facility] that patient has PA from insurance and they will pick her up at 1:00. I reminded her of oxygen at 2.5 liters NC. I spoke with the patient and she is agreeable to discharge today. IMM explained, signed, given, copy placed in MR. I called Dr. Davidson and he will be over here soon to update discharge orders. I called her daughter, Guera, and received her voice mail. Her voice mailbox is full and could not accept any more messages. Patient is discharging today to [facility] to a Skilled (Medicare) bed. DCP- Discharge Planning Updated by [id number]: Kathi Stallings on 07/20/20 12:[address] SPOKE WITH PARUL AT [facility] AND FAXED ORDER AND CLINICAL FOR TRILOGY/BIPAP. PARUL STATES THEY WILL ORDER THE TRILOGY/BIPAP. CM WILL CONTINUE TO FOLLOW AND ASSIST WITH DC PLANNING/NEEDS. AWAITING PA FROM INSURANCE. DCP- Discharge Planning Updated by [email or web address]: Kathi Stallings on 07/20/20 9:[address] Spoke with Parul at [facility]. Parul states they are still awaiting PA from insurance. CM will continue to follow and assist with discharge planning/needs. DCP- Discharge Planning Updated by [id number]: Katt Flanagan on 07/17/20 3:[address] 1655: Phone call returned by Guera, admissions. Patient will be accepted when INSURANCE APPROVES her stay. Patient will not be approved until Sunday or Sunday. JACIEL contacted [facility] ([phone]), spoke with Horace Godoy to see if the patient has been accepted to their facility, for a SNF bed. Provided my contact number for a call back. DCP- Discharge Planning Updated by [id number]: Katt Flanagan on 07/16/20 2:[address] JACIEL contacted Parul, with [facility], obtained the fax #[phone], faxed information for a referral. Leila, with [facility]EL was contacted by patient's daughter, Guera, with a request for information to be sent to [facility]. JACIEL contacted Jhoana, with [facility] ([phone]), obtained correct fax number ([phone]) and faxed required information for admission. DCP- Discharge Planning Updated by [id number]: Kathi Stallings on 07/15/20 11:[address] I called Guera to tell her I needed to send her referral to a skilled facility. I informed her it took several days for a PA once the facility submits for it. I spoke at length with Guera, and she still has not come to a decision between [facility] and [facility]. States she will call me this afternoon. DCP- Discharge Planning Updated by [email or web address]: Katt Flanagan on 07/13/20 2:[address] Jazmine, with [facility] states the co-pay is $175.00/day for [id number], at the facility. JACIEL contacted Guera JUAREZ) with this information and she states she will do some more research. Guera states she does not want [facility]. Jaciel made Guera aware that [facility] is in network with patient's insurance. No other facility name has been given. JACIEL received a phone call from Guera JUAREZ) [phone], requesting information be sent to [facility] ([phone]), for her mother. JACIEL contacted Jazmine, with [facility] to make aware of same. Per Jazmine, she notified Guera that the patient's insurance is [id number] for the facility, but she will send it in order to verify. CM faxed FS to [facility] @[phone]. Await CB. DCP- Discharge Planning Updated by [id number]: Kathi Stallings on 07/12/20 2:[address] Jasper called me and informed me [facility] is not taking any admissions at this time because they have positive Covid patients there and are unsure when they can admit. I called Guera back for a second choice and explained IP rehab vs SNF and states that she will need to review the list of SNF and rehab and call me in the morning for a second choice. CM will continue to follow and assist with discharge planning/needs. DCP- Discharge Planning Updated by [email or web address]: Kathi Stallings on 07/12/20 2:[address] CM spoke with Jasper at [facility] and referral faxed. CM will continue to follow and assist with discharge planning/needs. DCP- Discharge Planning Updated by [id number]: Kathi Stallings on 07/12/20 1:[address] CM went to room and spoke with daughter, Madyson, and the patient regarding discharge plan. Patient is agreeable to a rehab and Madyson asks me to call Guera for the EDI. I called Guera (daughter and POA) and she would like a referral to [facility]. I gave her the web site to compare nursing homes for a second choice and she will call me back with the second choice. CM will send referral to [facility]. DCP- Discharge Planning Updated by [id number]: Leila Ruvalcaba on 07/09/20 3:[address] CM received a call Guera pt daughter (POA) who requests that CM speak with the nurse so that both sisters can be in pt room at once. Guera states that someone from the hospital told her that they would make special accommodations to the visitation policy for out of town visitors. CM states that she does not have the authority to tell the nurses to change visitation rule. States she can call administration and voice her concerns. Guera asks if CM will call administration and recommend that the family should have more visitors. JACIEL states that increased visitors puts each person at an increased risk for COVID. Leila Ruvalcaba DCP- Discharge Planning Updated by [id number]: Leila Ruvalcaba on 07/09/20 12:[address] Patient Name: CHRISTOPHER ROBERT Admission Status: ER Accout number: [id number] Admission Date: 07-06-2020 : 1935 Admission Diagnosis:GASTROINTESTINAL HEMORRHAGE, UNSPECIFIED Attending: FABIENNE DAVIDSON Current LOS: 3 Anticipated DC Date: Planned Disposition: Primary Insurance: [facility] [employer] Discharge Planning Comments: CM received call from pt DTR/JOEL Jarrell at [phone] about pt condition. CM initiated initial DC assessment. CM educated Guera on the CM role and verbal consent given to complete assessment. CM verified patient's address, phone number, and emergency contact phone numbers. Patient lives at home alone and still drives. Guera states her mother is non compliant with her oxygen. States her mother sent the oxygen back because her mother stated she did not need it anymore. States she has had [facility] and would like to resume it if she can dc home. CM states it is not a safe DC plan to allow the pt to return home alone with out any assistance. CM talked about the availability of rehab or SNF services. Guera states she would like her to move in with her, but she lives out of state. States the daughter that lives close to her mother does not make good choices, and does not want her to move in with her. States she can provide transportation to get her mother to her. Cm states the patient will need ox at DC and will ensure that the patient will have enough e tanks to get her to Guera' house. CM will continue to follow and will assist as needed with dc plans/needs. Banking Consultant: Leila Ruvalcaba DCPIA - Discharge Planning Initial Assessment Updated by [email or web address]: Leila Ruvalcaba on 07/09/20 12:59 pm * Is the patient Alert and Oriented? No * PCP STUART * Pharmacy [facility] * Preadmission Environment Home Alone * ADLs Independent * List name and contact numbers for known caregivers / representatives who currently or will assist patient after discharge: Guera MALDONADO [phone] * Community resources currently utilized None * Additional services required to return to the preadmission environment? Yes * Can the patient safely return to the preadmission environment? No * Has this patient been hospitalized within the prior 30 days at any hospital? No Coverage Notice Reviewer: [id number] Lima Stallings Notice Issued Date-Time: 07/12/2020 14:30 Notice Type: Patient Choice Letter Notice Delivered To: Family Member Relationship to Patient: Daughter Soldering Inspector Name: Guera Delivery Method: HAND - Hand Delivered Thao Days: Prior Verbal Notification: Recipient Understood Notice: Yes Recipient Signature: Yes Med Rec Note Co-signed by Attending: Coverage Notice Comment: [facility] [place] Reviewer: [id number] Lima Flanagan Notice Issued Date-Time: 07/13/2020 15:35 Notice Type: Patient Choice Letter Notice Delivered To: Family Member Relationship to Patient: Power of Generation Technologist Soldering Inspector Name: Guera Dorsey Delivery Method: PHONE - Phone Thao Days: Prior Verbal Notification: Recipient Understood Notice: Yes Recipient Signature: Yes Med Rec Note Co-signed by Attending: Coverage Notice Comment: [facility] Reviewer: [id number] Lima Stallings Notice Issued Date-Time: 07/21/2020 10:31 Notice Type: IM Discharge Notice Notice Delivered To: Patient Relationship to Patient: Self Soldering Inspector Name: Delivery Method: HAND - Hand Delivered Thao Days: Prior Verbal Notification: Recipient Understood Notice: Yes Recipient Signature: Yes Med Rec Note Co-signed by Attending: Coverage Notice Comment: IMM explained, signed, given, copy placed in MR Last DP export: 07/20/20 1:05 p Patient Name: CHRISTOPHER ROBERT Page [id number] at 1043 All edits/amendments must be made on the electronic document DICTATION DATE: 07/21/20 1043 BELT CLEANER: DM 07/21/20 1043 RPT#: [id number] DC DATE: STATUS: ADM IN [facility] [address] [place] [address] END OF REPORT
--- NOTE | 2020-07-21 12:24 | MORECARE ---
CASE MANAGEMENT DISCHARGE SUMMARY PATIENT: CHRISTOPHER ROBERT UNIT: [id number] ADM DATE: 07/06/20 AGE: 85 : 35 SEX: F ROOM/BED: D.2104 AUTHOR: KERRIEDOC PHYSICIAN: REFERRING PHYSICIAN: FABIENNE DAVIDSON MD DATE OF SERVICE: 07/21/20 Discharge Plan Patient Name: CHRISTOPHER ROBERT Facility: [facility]:[place] : 1935 Planned Disposition: Mcfp Facility Anticipated Discharge Date: 07/20/20 Discharge Date: Expected LOS: 14 Initial Reviewer: [id number] Initial Review Date: 07/06/2020 Generated: 07/21/20 1:23 pm Comments DCP- Discharge Planning Updated by [id number]: Kathi Stallings on 07/21/20 11:[address] Faxed DCS/med list and DC order to [facility]. I did reach patient's daughter, Guera, and informed her of milk pickup driver to [facility] at 1PM today. DCP- Discharge Planning Updated by [id number]: Kathi Stallings on 07/21/20 9:[address] I received a call from Parul at [facility] that patient has PA from insurance and they will pick her up at 1:00. I reminded her of oxygen at 2.5 liters NC. I spoke with the patient and she is agreeable to discharge today. IMM explained, signed, given, copy placed in MR. I called Dr. Davidson and he will be over here soon to update discharge orders. I called her daughter, Guera, and received her voice mail. Her voice mailbox is full and could not accept any more messages. Patient is discharging today to [facility] to a Skilled (Medicare) bed. DCP- Discharge Planning Updated by [id number]: Kathi Stallings on 07/20/20 12:[address] SPOKE WITH PARUL AT [facility] AND FAXED ORDER AND CLINICAL FOR TRILOGY/BIPAP. PARUL STATES THEY WILL ORDER THE TRILOGY/BIPAP. CM WILL CONTINUE TO FOLLOW AND ASSIST WITH DC PLANNING/NEEDS. AWAITING PA FROM INSURANCE. DCP- Discharge Planning Updated by [id number]: Kathi Stallings on 07/20/20 9:[address] Spoke with Parul at [facility]. Parul states they are still awaiting PA from insurance. CM will continue to follow and assist with discharge planning/needs. DCP- Discharge Planning Updated by [id number]: Katt Flanagan on 07/17/20 3:[address] 1655: Phone call returned by Guera, admissions. Patient will be accepted when INSURANCE APPROVES her stay. Patient will not be approved until Sunday or Sunday. CM contacted [facility] ([phone]), spoke with Horace Godoy to see if the patient has been accepted to their facility, for a SNF bed. Provided my contact number for a call back. DCP- Discharge Planning Updated by [id number]: Katt Flanagan on 07/16/20 2:[address] JACIEL contacted Parul, with [facility], obtained the fax #[phone], faxed information for a referral. Leila, with JACIEL was contacted by patient's daughter, Guera, with a request for information to be sent to [facility]. CM contacted Jhoana, with [facility] ([phone]), obtained correct fax number ([phone]) and faxed required information for admission. DCP- Discharge Planning Updated by [id number]: Kathi Stallings on 07/15/20 11:[address] I called Guera to tell her I needed to send her referral to a skilled facility. I informed her it took several days for a PA once the facility submits for it. I spoke at length with Guera, and she still has not come to a decision between [facility] and [facility]. States she will call me this afternoon. DCP- Discharge Planning Updated by [email or web address]: Katt Flanagan on 07/13/20 2:[address] Jazmine, with [facility] states the co-pay is $175.00/day for [id number], at the facility. JACIEL contacted Guera JUAREZ) with this information and she states she will do some more research. Guera states she does not want [facility]. Jaciel made Guera aware that [facility] is in network with patient's insurance. No other facility name has been given. JACIEL received a phone call from Guera JUAREZ) [phone], requesting information be sent to [facility] ([phone]), for her mother. CM contacted Jazmine, with [facility] to make aware of same. Per Jazmine, she notified Guera that the patient's insurance is [id number] for the facility, but she will send it in order to verify. JACIEL faxed FS to [facility] @[phone]. Await CB. DCP- Discharge Planning Updated by [id number]: Kathi Stallings on 07/12/20 2:[address] Jasper called me and informed me [facility] is not taking any admissions at this time because they have positive Covid patients there and are unsure when they can admit. I called Guera back for a second choice and explained IP rehab vs SNF and states that she will need to review the list of SNF and rehab and call me in the morning for a second choice. CM will continue to follow and assist with discharge planning/needs. DCP- Discharge Planning Updated by [id number]: Kathi Stallings on 07/12/20 2:[address] CM spoke with Jasper at [facility] and referral faxed. CM will continue to follow and assist with discharge planning/needs. DCP- Discharge Planning Updated by [id number]: Kathi Stallings on 07/12/20 1:[address] CM went to room and spoke with daughter, Madyson, and the patient regarding discharge plan. Patient is agreeable to a rehab and Madyson asks me to call Guera for the EDI. I called Guera (daughter and POA) and she would like a referral to [facility]. I gave her the web site to compare nursing homes for a second choice and she will call me back with the second choice. CM will send referral to [facility]. DCP- Discharge Planning Updated by [id number]: Leila Ruvalcaba on 07/09/20 3:[address] CM received a call Guera pt daughter (POA) who requests that CM speak with the nurse so that both sisters can be in pt room at once. Guera states that someone from the hospital told her that they would make special accommodations to the visitation policy for out of town visitors. CM states that she does not have the authority to tell the nurses to change visitation rule. States she can call administration and voice her concerns. Guera asks if CM will call administration and recommend that the family should have more visitors. CM states that increased visitors puts each person at an increased risk for COVID. Leila Ruvalcaba DCP- Discharge Planning Updated by [id number]: Leila Ruvalcaab on 07/09/20 12:[address] Patient Name: CHRISTOPHER ROBERT Admission Status: ER Accout number: [id number] Admission Date: 07-06-2020 : 1935 Admission Diagnosis:GASTROINTESTINAL HEMORRHAGE, UNSPECIFIED Attending: FABIENNE DAVIDSON Current LOS: 3 Anticipated DC Date: Planned Disposition: Primary Insurance: [facility] [employer] Discharge Planning Comments: CM received call from pt DTR/JOEL Jarrell at [phone] about pt condition. CM initiated initial DC assessment. CM educated Guera on the CM role and verbal consent given to complete assessment. CM verified patient's address, phone number, and emergency contact phone numbers. Patient lives at home alone and still drives. Guera states her mother is non compliant with her oxygen. States her mother sent the oxygen back because her mother stated she did not need it anymore. States she has had [facility] and would like to resume it if she can dc home. CM states it is not a safe DC plan to allow the pt to return home alone with out any assistance. CM talked about the availability of rehab or SNF services. Guera states she would like her to move in with her, but she lives out of state. States the daughter that lives close to her mother does not make good choices, and does not want her to move in with her. States she can provide transportation to get her mother to her. Cm states the patient will need ox at DC and will ensure that the patient will have enough e tanks to get her to Guera' house. CM will continue to follow and will assist as needed with dc plans/needs. Shaft Repairer: Leila Ruvalcaba DCPIA - Discharge Planning Initial Assessment Updated by [email or web address]: Leila Ruvalcaba on 07/09/20 12:59 pm * Is the patient Alert and Oriented? No * PCP STUART * Pharmacy [facility] * Preadmission Environment Home Alone * ADLs Independent * List name and contact numbers for known caregivers / representatives who currently or will assist patient after discharge: Guera MALDONADO [phone] * Community resources currently utilized None * Additional services required to return to the preadmission environment? Yes * Can the patient safely return to the preadmission environment? No * Has this patient been hospitalized within the prior 30 days at any hospital? No Coverage Notice Reviewer: [id number] Lima Stallings Notice Issued Date-Time: 07/12/2020 14:30 Notice Type: Patient Choice Letter Notice Delivered To: Family Member Relationship to Patient: Daughter Wire Coating Machine Operator Name: Guera Delivery Method: HAND - Hand Delivered Thao Days: Prior Verbal Notification: Recipient Understood Notice: Yes Recipient Signature: Yes Med Rec Note Co-signed by Attending: Coverage Notice Comment: [facility] Reviewer: [id number] Lima Flanagan Notice Issued Date-Time: 07/13/2020 15:35 Notice Type: Patient Choice Letter Notice Delivered To: Family Member Relationship to Patient: Power of Feather Duster Winder Wire Coating Machine Operator Name: Guera Dorsey Delivery Method: PHONE - Phone Thao Days: Prior Verbal Notification: Recipient Understood Notice: Yes Recipient Signature: Yes Med Rec Note Co-signed by Attending: Coverage Notice Comment: [facility] Reviewer: [id number] Lima Stallings Notice Issued Date-Time: 07/21/2020 10:31 Notice Type: IM Discharge Notice Notice Delivered To: Patient Relationship to Patient: Self Wire Coating Machine Operator Name: Delivery Method: HAND - Hand Delivered Thao Days: Prior Verbal Notification: Recipient Understood Notice: Yes Recipient Signature: Yes Med Rec Note Co-signed by Attending: Coverage Notice Comment: IMM explained, signed, given, copy placed in MR Last DP export: 07/21/20 9:43 a Patient Name: CHRISTOPHER ROBERT Page 36643 at 1224 All edits/amendments must be made on the electronic document DICTATION DATE: 07/21/201222 DIGITAL MEDIA BUYER: [email or web address] 07/21/201222 RPT#: [id number] DC DATE: STATUS: ADM IN [facility] [address] [place] [address] END OF REPORT
--- NOTE | 2020-07-21 12:46 | NUR ---
REPORT GIVEN TO CESIA Pollack RN. IV D/C AND FLU VACCINE GIVEN.
[2020-07-21 14:21] VITALS: BP 114/46
--- NOTE | 2020-07-22 08:59 | MORECARE ---
CASE MANAGEMENT DISCHARGE SUMMARY PATIENT: CHRISTOPHER ROBERT UNIT: [id number] ADM DATE: 07/06/20 AGE: 85 : 35 SEX: F ROOM/BED: D.5034 AUTHOR: KERRIE,DOC PHYSICIAN: REFERRING PHYSICIAN: FABIENNE DAVIDSON MD DATE OF SERVICE: 07/22/20 Discharge Plan Patient Name: CHRISTOPHER ROBERT Facility: [facility]:[place] : 1935 Planned Disposition: Senior Care Facility Anticipated Discharge Date: 07/20/20 Discharge Date: 07/21/2020 Expected LOS: 14 Initial Reviewer: [id number] Initial Review Date: 07/06/2020 Generated: 07/22/20 9:58 am Comments DCP- Discharge Planning Updated by [id number]: Kathi Stallings on 07/21/20 11:[address] Faxed DCS/med list and DC order to [facility]. I did reach patient's daughter, Guera, and informed her of bean picker to [facility] at 1PM today. DCP- Discharge Planning Updated by [email or web address]: Kathi Stallings on 07/21/20 9:[address] I received a call from Parul at [facility] that patient has PA from insurance and they will pick her up at 1:00. I reminded her of oxygen at 2.5 liters [place]. I spoke with the patient and she is agreeable to discharge today. IMM explained, signed, given, copy placed in MR. I called Dr. Davidson and he will be over here soon to update discharge orders. I called her daughter, Guera, and received her voice mail. Her voice mailbox is full and could not accept any more messages. Patient is discharging today to [facility] to a Skilled (Medicare) bed. DCP- Discharge Planning Updated by [id number]: Kathi Stallings on 07/20/20 12:[address] SPOKE WITH PARUL AT [facility] AND FAXED ORDER AND CLINICAL FOR TRILOGY/BIPAP. PARUL STATES THEY WILL ORDER THE TRILOGY/BIPAP. CM WILL CONTINUE TO FOLLOW AND ASSIST WITH DC PLANNING/NEEDS. AWAITING PA FROM INSURANCE. DCP- Discharge Planning Updated by [email or web address]: Kathi Stallings on 07/20/20 9:[address] Spoke with Parul at [facility]. Parul states they are still awaiting PA from insurance. CM will continue to follow and assist with discharge planning/needs. DCP- Discharge Planning Updated by [email or web address]: Katt Flanagan on 07/17/20 3:[address] 1655: Phone call returned by Guera, admissions. Patient will be accepted when INSURANCE APPROVES her stay. Patient will not be approved until Sunday or Sunday. CM contacted [facility] ([phone]), spoke with Horace Godoy to see if the patient has been accepted to their facility, for a SNF bed. Provided my contact number for a call back. DCP- Discharge Planning Updated by [email or web address]: Katt Flanagan on 07/16/20 2:[address] JACIEL contacted Parul, with [facility], obtained the fax #[phone], faxed information for a referral. Leila, with [facility] was contacted by patient's daughter, Guera, with a request for information to be sent to [facility]. JACIEL contacted Jhoana, with [facility] ([phone]), obtained correct fax number ([phone]) and faxed required information for admission. DCP- Discharge Planning Updated by [id number]: Kathi Stallings on 07/15/20 11:[address] I called Guera to tell her I needed to send her referral to a skilled facility. I informed her it took several days for a PA once the facility submits for it. I spoke at length with Guera, and she still has not come to a decision between [facility] and [facility]. States she will call me this afternoon. DCP- Discharge Planning Updated by [id number]: Katt Flanagan on 07/13/20 2:[address] Jazmine, with [facility] states the co-pay is $175.00/day for [id number], at the facility. JACIEL contacted Guera JUAREZ) with this information and she states she will do some more research. Guera states she does not want [facility]. Jaciel made Guera aware that [facility] is in network with patient's insurance. No other facility name has been given. JACIEL received a phone call from Guera (JOEL) [phone], requesting information be sent to [facility] ([phone]), for her mother. JACIEL contacted Jazmine, with [facility] to make aware of same. Per Jazmine, she notified Guera that the patient's insurance is [id number] for the facility, but she will send it in order to verify. JACIEL faxed FS to [facility] @[phone]. Await CB. DCP- Discharge Planning Updated by [id number]: Kathi Stallings on 07/12/20 2:[address] Jasper called me and informed me [facility] is not taking any admissions at this time because they have positive Covid patients there and are unsure when they can admit. I called Guera back for a second choice and explained IP rehab vs SNF and states that she will need to review the list of SNF and rehab and call me in the morning for a second choice. CM will continue to follow and assist with discharge planning/needs. DCP- Discharge Planning Updated by [email or web address]: Kathi Stallings on 07/12/20 2:[address] CM spoke with Jasper at [facility] and referral faxed. CM will continue to follow and assist with discharge planning/needs. DCP- Discharge Planning Updated by [id number]: Kathi Stallings on 07/12/20 1:[address] CM went to room and spoke with daughter, Madyson, and the patient regarding discharge plan. Patient is agreeable to a rehab and Madyson asks me to call Guera for the EDI. I called Guera (daughter and POA) and she would like a referral to [facility]. I gave her the web site to compare nursing homes for a second choice and she will call me back with the second choice. CM will send referral to [facility]. DCP- Discharge Planning Updated by [email or web address]: Leila Ruvalcaba on 07/09/20 3:[address] CM received a call Guera pt daughter (POA) who requests that CM speak with the nurse so that both sisters can be in pt room at once. Guera states that someone from the hospital told her that they would make special accommodations to the visitation policy for out of town visitors. CM states that she does not have the authority to tell the nurses to change visitation rule. States she can call administration and voice her concerns. Guera asks if CM will call administration and recommend that the family should have more visitors. CM states that increased visitors puts each person at an increased risk for COVID. Leila Ruvalcaba DCP- Discharge Planning Updated by [id number]: Leila Ruvalcaba on 07/09/20 12:[address] Patient Name: CHRISTOPHER ROBERT Admission Status: ER Accout number: [id number] Admission Date: 07-06-2020 : 1935 Admission Diagnosis:GASTROINTESTINAL HEMORRHAGE, UNSPECIFIED Attending: FABIENNE DAVIDSON Current LOS: 3 Anticipated DC Date: Planned Disposition: Primary Insurance: [facility] [employer] Discharge Planning Comments: CM received call from pt DTR/JOEL Jarrell at [phone] about pt condition. CM initiated initial DC assessment. CM educated Guera on the CM role and verbal consent given to complete assessment. CM verified patient's address, phone number, and emergency contact phone numbers. Patient lives at home alone and still drives. Guera states her mother is non compliant with her oxygen. States her mother sent the oxygen back because her mother stated she did not need it anymore. States she has had [facility] and would like to resume it if she can dc home. CM states it is not a safe DC plan to allow the pt to return home alone with out any assistance. CM talked about the availability of rehab or SNF services. Guera states she would like her to move in with her, but [place]. States the daughter that lives close to her mother does not make good choices, and does not want her to move in with her. States she can provide transportation to get her mother to her. Cm states the patient will need ox at DC and will ensure that the patient will have enough e tanks to get her to Guera' house. CM will continue to follow and will assist as needed with dc plans/needs. Event Services Manager: Leila Ruvalcaba DCPIA - Discharge Planning Initial Assessment Updated by [email or web address]: Leila Ruvalcaba on 07/09/20 12:59 pm * Is the patient Alert and Oriented? No * PCP ST[facility] * Pharmacy [facility] * Preadmission Environment Home Alone * ADLs Independent * List name and contact numbers for known caregivers / representatives who currently or will assist patient after discharge: Guera MALDONADO [phone] * Community resources currently utilized None * Additional services required to return to the preadmission environment? Yes * Can the patient safely return to the preadmission environment? No * Has this patient been hospitalized within the prior 30 days at any hospital? No Coverage Notice Reviewer: [id number] Lima Stallings Notice Issued Date-Time: 07/12/2020 14:30 Notice Type: Patient Choice Letter Notice Delivered To: Family Member Relationship to Patient: Daughter Flitch Hanger Name: Guera Delivery Method: HAND - Hand Delivered Thao Days: Prior Verbal Notification: Recipient Understood Notice: Yes Recipient Signature: Yes Med Rec Note Co-signed by Attending: Coverage Notice Comment: EDI Ontiveros Reviewer: [email or web address] Lima Flanagan Notice Issued Date-Time: 07/13/2020 15:35 Notice Type: Patient Choice Letter Notice Delivered To: Family Member Relationship to Patient: Power of Instrument Sterilizer Flitch Hanger Name: Guera Dorsey Delivery Method: PHONE - Phone Thao Days: Prior Verbal Notification: Recipient Understood Notice: Yes Recipient Signature: Yes Med Rec Note Co-signed by Attending: Coverage Notice Comment: [facility] Reviewer: [id number] Lima Stallings Notice Issued Date-Time: 07/21/2020 10:31 Notice Type: IM Discharge Notice Notice Delivered To: Patient Relationship to Patient: Self Flitch Hanger Name: Delivery Method: HAND - Hand Delivered Thao Days: Prior Verbal Notification: Recipient Understood Notice: Yes Recipient Signature: Yes Med Rec Note Co-signed by Attending: Coverage Notice Comment: IMM explained, signed, given, copy placed in MR Last DP export: 07/21/20 11:24 a Patient Name: CHRISTOPHER ROBERT Page [id number] at 0859 All edits/amendments must be made on the electronic document DICTATION DATE: 07/22/20857 PHOTOLETTERING MACHINE OPERATOR: JEREMY 07/22/20857 RPT#: [id number] DC DATE:07/21/20 STATUS: DIS IN [facility] [address] [facility] [place] [address] END OF REPORT
== END 2020-07-21 14:34 | DRG 871 ==
LOC: D.ER 18:16 → D.EDHOLD 22:07 → D.M2 22:07
PROVIDERS: Family Medicine; Internal Medicine Gastroenterology; ADMIT Family Medicine; ATTEND Family Medicine
PROC: 0DB68ZX Excision of Stomach, Via Natural or Artificial Opening Endoscopic, Diagnostic (ICD-10-PCS; 2020-07-09)
PROC: 0DB98ZX Excision of Duodenum, Via Natural or Artificial Opening Endoscopic, Diagnostic (ICD-10-PCS; principal; 2020-07-09 16:30)
DX: A41.9 Sepsis, unspecified organism (principal); J96.02 Acute respiratory failure with hypercapnia; J96.21 Acute and chronic respiratory failure with hypoxia; G93.41 Metabolic encephalopathy; J69.0 Pneumonitis due to inhalation of food and vomit; K29.71 Gastritis, unspecified, with bleeding; K29.81 Duodenitis with bleeding; N39.0 Urinary tract infection, site not specified; D62 Acute posthemorrhagic anemia; I10 Essential (primary) hypertension; J43.9 Emphysema, unspecified; E03.9 Hypothyroidism, unspecified; K21.9 Gastro-esophageal reflux disease without esophagitis; Z99.81 Dependence on supplemental oxygen